=== PATIENT | female | born 1940 | race Caucasian/White ===

== ENCOUNTER 2020-06-26 12:24 | Outpatient (REF) | payer MEDICARE, SELFPAY ==
[2020-06-26 13:48] LABS: MANUAL DIFF FLAG NO
[2020-06-26 13:55] LABS: Basophils Percent Auto 0.6 % (0-2); Eosinophils Percent Auto 0.6 % (0-4); Hematocrit 39.8 % (37-47); Hemoglobin 12.8 g/dl (12.0-16.0); Imm Gran Abs Auto 0.03 X10*3/uL (0.00-0.03); Imm Gran Pct Auto 0.4 % (0.0-0.4); Lymphocytes Absolute Auto 2.3 X10*3/uL (1.2-4.9); Lymphocytes Percent Auto 32.6 % (20-40); Mean Corpuscular HGB Conc 32.2 g/dl (31.0-35.0); Mean Corpuscular Volume 96.4 fL (80-98); Mean Platelet Volume 9.3 fL (9.4-12.3); Monocytes Absolute Auto 0.8 X10*3/uL (0.1-1.2); Monocytes Percent Auto 10.7 % (2-11); Neutrophils Absolute Auto 3.9 X10*3/uL (2.0-8.3); Neutrophils Percent Auto 55.1 % (45-73); Platelet Count 239 X10*3/uL (160-400); Red Blood Count 4.13 X10*6/uL (4.20-5.50); Red Cell Distribution Width 12.6 % (11.0-16.0); White Blood Count 7.1 X10*3/uL (4.8-10.8)
[2020-06-26 14:31] LABS: Alanine Aminotransferase 10 U/L (0-31); Albumin Level 3.8 g/dL (3.5-5.0); Alkaline Phosphatase 38 U/L (39-117); Aspartate Amino Transferase 17 U/L (5-31); Bilirubin Total 0.7 mg/dL (0.0-1.0); Blood Urea Nitrogen 27 mg/dL (9-16); Calcium 9.7 mg/dL (8.4-10.2); Estimated Glomerular Filt Rate 42; Glucose Random 97 mg/dL (60-115); Total Protein 6.9 g/dL (6.5-8.0)
[2020-06-26 14:43] LABS: Anion Gap 10 (12-20); Carbon Dioxide 30 mmol/L (22-29); Chloride 105 mmol/L (96-108); Sodium 140 mmol/L (135-145)
[2020-06-26 14:54] LABS: Free T4 (Free Thyroxine) 1.04 ng/dL (0.71-1.85); Thyroid Stimulating Hormone 9.26 mIU/mL (0.32-4.0); Vitamin D 25-OH Total 35.3 ng/mL (>30)
== END 2020-06-26 12:25 | disposition home or self-care (01) ==
LOC: HO.10HDL 12:24
PROVIDERS: Visit Provider Internal Medicine
DX: E55.9 Vitamin D deficiency, unspecified (principal); E03.9 Hypothyroidism, unspecified; I12.9 Hypertensive chronic kidney disease with stage 1 through stage 4 chronic kidney disease, or unspecified chronic kidney disease; N18.9 Chronic kidney disease, unspecified
CPT/HCPCS: 36415; 80053; 82306; 84439; 84443; 85025

== ENCOUNTER 2020-08-01 11:01 | Outpatient (REF) | payer MEDICARE, SELFPAY ==
[2020-08-01 15:34] LABS: Free T4 (Free Thyroxine) 1.07 ng/dL (0.71-1.85); Thyroid Stimulating Hormone 5.25 uIU/mL (0.32-4.0)
== END 2020-08-01 11:02 | disposition home or self-care (01) ==
LOC: HO.HMGCLDS 11:01
PROVIDERS: PCP Internal Medicine; Visit Provider Internal Medicine
DX: E03.9 Hypothyroidism, unspecified (principal)
CPT/HCPCS: 84439; 84443

== ENCOUNTER 2021-04-02 07:49 | Outpatient (REF) | payer MEDICARE, SELFPAY ==
[2021-04-02 11:13] LABS: MANUAL DIFF FLAG NO
[2021-04-02 11:26] LABS: Basophils Percent Auto 0.6 % (0-2); Eosinophils Percent Auto 0.3 % (0-4); Hematocrit 41.2 % (37-47); Hemoglobin 13.3 g/dl (12.0-16.0); Imm Gran Abs Auto 0.02 X10*3/uL (0.00-0.03); Imm Gran Pct Auto 0.3 % (0.0-0.4); Lymphocytes Absolute Auto 2.1 X10*3/uL (1.2-4.9); Lymphocytes Percent Auto 34.1 % (20-40); Mean Corpuscular HGB Conc 32.3 g/dl (31.0-35.0); Mean Corpuscular Hemoglobin 31.1 pg (27.0-33.0); Mean Corpuscular Volume 96.3 fL (80-98); Mean Platelet Volume 9.5 fL (9.4-12.3); Monocytes Absolute Auto 0.7 X10*3/uL (0.1-1.2); Monocytes Percent Auto 10.4 % (2-11); Neutrophils Absolute Auto 3.4 X10*3/uL (2.0-8.3); Neutrophils Percent Auto 54.3 % (45-73); Platelet Count 254 X10*3/uL (160-400); Red Blood Count 4.28 X10*6/uL (4.20-5.50); Red Cell Distribution Width 12.9 % (11.0-16.0); White Blood Count 6.3 X10*3/uL (4.8-10.8)
[2021-04-02 12:14] LABS: Alanine Aminotransferase 8 U/L (0-31); Albumin Level 3.6 g/dL (3.5-5.0); Alkaline Phosphatase 38 U/L (39-117); Anion Gap 13 (12-20); Aspartate Amino Transferase 15 U/L (5-31); Bilirubin Total 0.6 mg/dL (0.0-1.0); Blood Urea Nitrogen 28 mg/dL (9-16); Calcium 9.3 mg/dL (8.4-10.2); Carbon Dioxide 25 mmol/L (22-29); Chloride 107 mmol/L (96-108); Cholesterol 160 mg/dL; Estimated Glomerular Filt Rate 50; Glucose Random 112 mg/dL (60-115); HDL Cholesterol 36 mg/dL; LDL Cholesterol Calculated 73 mg/dl; Potassium 4.6 mmol/L (3.3-5.1); Sodium 140 mmol/L (135-145); Thyroid Stimulating Hormone 6.26 uIU/mL (0.32-4.0); Total Protein 6.7 g/dL (6.5-8.0); Triglycerides 255 mg/dL; Vitamin D 25-OH Total 28.9 ng/mL (>30)
== END 2021-04-02 07:50 | disposition home or self-care (01) ==
LOC: HO.HMGCLDS 07:49
PROVIDERS: PCP Internal Medicine; Visit Provider Internal Medicine
DX: M85.80 Other specified disorders of bone density and structure, unspecified site (principal); E03.9 Hypothyroidism, unspecified; E78.00 Pure hypercholesterolemia, unspecified; I12.9 Hypertensive chronic kidney disease with stage 1 through stage 4 chronic kidney disease, or unspecified chronic kidney disease; N18.9 Chronic kidney disease, unspecified
CPT/HCPCS: 36415; 80053; 80061; 82306; 84439; 84443; 85025

== ENCOUNTER 2021-11-08 14:15 | Outpatient (REF) | payer MEDICARE, SELFPAY ==
[2021-11-08 16:37] LABS: Appearance Urine CLEAR; Color Urine YELLOW; Glucose Urine UA NEG (NEG); Leukocyte Esterase Urine TRACE (NEG); Nitrite Urine NEG (NEG); PH 5.5 (5.0-8.0); Specific Gravity - Urine 1.025 (1.005-1.025); UACC Culture Trigger YES; Urine Blood NEG (NEG); Urine Ketones NEG (NEG); Urine Protein NEG (NEG-TRACE)
[2021-11-08 16:50] LABS: RBC Urine 0 /HPF (0); Squamous Epithelial Cell Urine 2+ /LPF
== END 2021-11-08 14:16 | disposition home or self-care (01) ==
LOC: HO.HMGCLDS 14:15
PROVIDERS: Visit Provider Internal Medicine
DX: R30.0 Dysuria (principal)
CPT/HCPCS: 81001; 87086

== ENCOUNTER 2021-12-04 07:56 | Outpatient (REF) | payer MEDICARE, SELFPAY ==
[2021-12-04 12:20] LABS: Anion Gap 9 (12-20); Blood Urea Nitrogen 28 mg/dL (9-16); Carbon Dioxide 28 mmol/L (22-29); Chloride 106 mmol/L (96-108); Estimated Glomerular Filt Rate 44; Free T4 (Free Thyroxine) 1.06 ng/dL (0.71-1.85); Glucose Random 116 mg/dL (60-115); Potassium 4.8 mmol/L (3.3-5.1); Sodium 138 mmol/L (135-145)
== END 2021-12-04 07:57 | disposition home or self-care (01) ==
LOC: HO.HMGCLDS 07:56
PROVIDERS: Visit Provider Internal Medicine
DX: I12.9 Hypertensive chronic kidney disease with stage 1 through stage 4 chronic kidney disease, or unspecified chronic kidney disease (principal); N18.9 Chronic kidney disease, unspecified; E03.9 Hypothyroidism, unspecified
CPT/HCPCS: 36415; 80048; 84439; 84443

== ENCOUNTER 2021-12-24 17:23 | Outpatient (REF) | payer MEDICARE, SELFPAY | END 2021-12-24 17:24 | disposition home or self-care (01) | LOC: HO.LNP 17:23 | PROVIDERS: Visit Provider Internal Medicine | DX: L72.9 Follicular cyst of the skin and subcutaneous tissue, unspecified (principal) | CPT/HCPCS: 87071; 87205 ==

== ENCOUNTER 2022-01-23 13:09 | Outpatient (REF) | payer MEDICARE, SELFPAY ==
[2022-01-23 13:41] LABS: MANUAL DIFF FLAG NO
[2022-01-23 13:49] LABS: Basophils Percent Auto 0.4 % (0-2); Eosinophils Percent Auto 0.3 % (0-4); Hematocrit 39.4 % (37.0-47.0); Hemoglobin 12.7 g/dl (12.0-16.0); Imm Gran Abs Auto 0.02 X10*3/uL (0.00-0.03); Imm Gran Pct Auto 0.3 % (0.0-0.4); Lymphocytes Absolute Auto 2.6 X10*3/uL (1.2-4.9); Mean Corpuscular HGB Conc 32.2 g/dl (31.0-35.0); Mean Corpuscular Hemoglobin 30.6 pg (27.0-33.0); Mean Corpuscular Volume 94.9 fL (80.0-98.0); Mean Platelet Volume 9.2 fL (9.4-12.3); Monocytes Absolute Auto 0.7 X10*3/uL (0.1-1.2); Monocytes Percent Auto 9.5 % (2-11); Neutrophils Absolute Auto 3.6 x10*3/uL (2.0-8.3); Neutrophils Percent Auto 52.5 % (45-73); Platelet Count 230 X10*3/uL (160-400); Red Blood Count 4.15 X10*6/uL (4.20-5.50); Red Cell Distribution Width 12.7 % (11.0-16.0); White Blood Count 6.9 X10*3/uL (4.8-10.8)
[2022-01-23 14:05] LABS: Alanine Aminotransferase 7 U/L (0-31); Albumin Level 3.8 g/dL (3.5-5.0); Alkaline Phosphatase 47 U/L (39-117); Anion Gap 10 (12-20); Aspartate Amino Transferase 14 U/L (5-31); Bilirubin Total 0.6 mg/dL (0.0-1.0); Blood Urea Nitrogen 24 mg/dL (9-16); Carbon Dioxide 27 mmol/L (22-29); Chloride 106 mmol/L (96-108); Estimated Glomerular Filt Rate 48; Glucose Random 149 mg/dL (60-115); Potassium 4.3 mmol/L (3.3-5.1); Sodium 139 mmol/L (135-145); Total Protein 6.9 g/dL (6.5-8.0)
[2022-01-23 14:27] LABS: Free T4 (Free Thyroxine) 0.95 ng/dL (0.71-1.85); Thyroid Stimulating Hormone 6.33 uIU/mL (0.32-4.0); Vitamin D 25-OH Total 32.6 ng/mL (>30)
== END 2022-01-23 13:10 | disposition home or self-care (01) ==
LOC: HO.HMGCLDS 13:09
PROVIDERS: PCP Internal Medicine; Visit Provider Internal Medicine
DX: E03.9 Hypothyroidism, unspecified (principal); I12.9 Hypertensive chronic kidney disease with stage 1 through stage 4 chronic kidney disease, or unspecified chronic kidney disease; N18.9 Chronic kidney disease, unspecified; E55.9 Vitamin D deficiency, unspecified
CPT/HCPCS: 36415; 80053; 82306; 84439; 84443; 85025

== ENCOUNTER 2022-04-04 13:28 | Outpatient (REF) | payer MEDICARE, SELFPAY ==
[2022-04-04 17:02] LABS: Free T4 (Free Thyroxine) 1.05 ng/dL (0.71-1.85)
== END 2022-04-04 13:29 | disposition home or self-care (01) ==
LOC: HO.HMGCLDS 13:28
PROVIDERS: PCP Internal Medicine; Visit Provider Internal Medicine
DX: E03.9 Hypothyroidism, unspecified (principal)
CPT/HCPCS: 36415; 84439; 84443

== ENCOUNTER 2022-05-22 08:32 | Outpatient (REF) | payer MEDICARE, SELFPAY ==
[2022-05-22 11:36] LABS: MANUAL DIFF FLAG NO
[2022-05-22 11:45] LABS: Basophils Percent Auto 0.6 % (0-2); Eosinophils Percent Auto 0.2 % (0-4); Hematocrit 41.2 % (37.0-47.0); Hemoglobin 13.1 g/dl (12.0-16.0); Imm Gran Abs Auto 0.03 X10*3/uL (0.00-0.03); Imm Gran Pct Auto 0.5 % (0.0-0.4); Lymphocytes Percent Auto 31.8 % (20-40); Mean Corpuscular HGB Conc 31.8 g/dl (31.0-35.0); Mean Corpuscular Hemoglobin 30.2 pg (27.0-33.0); Mean Corpuscular Volume 94.9 fL (80.0-98.0); Mean Platelet Volume 9.7 fL (9.4-12.3); Monocytes Absolute Auto 0.7 X10*3/uL (0.1-1.2); Monocytes Percent Auto 10.7 % (2-11); Neutrophils Absolute Auto 3.5 x10*3/uL (2.0-8.3); Neutrophils Percent Auto 56.2 % (45-73); Platelet Count 239 X10*3/uL (160-400); Red Blood Count 4.34 X10*6/uL (4.20-5.50); Red Cell Distribution Width 12.4 % (11.0-16.0); White Blood Count 6.2 X10*3/uL (4.8-10.8)
[2022-05-22 12:04] LABS: Alanine Aminotransferase 9 U/L (0-31); Albumin Level 3.9 g/dL (3.5-5.0); Alkaline Phosphatase 40 U/L (39-117); Anion Gap 12 (12-20); Aspartate Amino Transferase 15 U/L (5-31); Bilirubin Total 0.7 mg/dL (0.0-1.0); Blood Urea Nitrogen 30 mg/dL (9-16); Calcium 9.5 mg/dL (8.4-10.2); Carbon Dioxide 27 mmol/L (22-29); Chloride 108 mmol/L (96-108); Cholesterol 164 mg/dL; Estimated Glomerular Filt Rate 52; Glucose Fasting 108 mg/dL (60-99); HDL Cholesterol 42 mg/dL; LDL Cholesterol Calculated 87 mg/dl; Potassium 4.8 mmol/L (3.3-5.1); Sodium 142 mmol/L (135-145); Total Protein 6.9 g/dL (6.5-8.0); Triglycerides 177 mg/dL
[2022-05-22 12:14] LABS: Free T4 (Free Thyroxine) 1.14 ng/dL (0.71-1.85); Thyroid Stimulating Hormone 3.38 uIU/mL (0.32-4.0)
== END 2022-05-22 08:33 | disposition home or self-care (01) ==
LOC: HO.HMGCLDS 08:32
PROVIDERS: PCP Internal Medicine; Visit Provider Internal Medicine
DX: I12.9 Hypertensive chronic kidney disease with stage 1 through stage 4 chronic kidney disease, or unspecified chronic kidney disease (principal); N18.9 Chronic kidney disease, unspecified; E78.00 Pure hypercholesterolemia, unspecified; E03.9 Hypothyroidism, unspecified; M19.90 Unspecified osteoarthritis, unspecified site
CPT/HCPCS: 36415; 80053; 80061; 84439; 84443; 85025

== ENCOUNTER 2022-12-01 08:36 | Outpatient (REF) | payer MEDICARE, SELFPAY ==
[2022-12-01 11:44] LABS: MANUAL DIFF FLAG NO
[2022-12-01 11:50] LABS: Basophils Percent Auto 0.6 % (0-2); Eosinophils Absolute Auto 0.1 X10*3/uL (0.0-0.4); Eosinophils Percent Auto 1.9 % (0-4); Hematocrit 40.7 % (37.0-47.0); Hemoglobin 12.8 g/dl (12.0-16.0); Imm Gran Abs Auto 0.03 X10*3/uL (0.00-0.03); Imm Gran Pct Auto 0.4 % (0.0-0.4); Lymphocytes Absolute Auto 2.2 X10*3/uL (1.2-4.9); Lymphocytes Percent Auto 30.4 % (20-40); Mean Corpuscular HGB Conc 31.4 g/dl (31.0-35.0); Mean Corpuscular Hemoglobin 30.4 pg (27.0-33.0); Mean Corpuscular Volume 96.7 fL (80.0-98.0); Mean Platelet Volume 9.8 fL (9.4-12.3); Monocytes Absolute Auto 0.6 X10*3/uL (0.1-1.2); Monocytes Percent Auto 8.9 % (2-11); Neutrophils Absolute Auto 4.2 x10*3/uL (2.0-8.3); Neutrophils Percent Auto 57.8 % (45-73); Platelet Count 261 X10*3/uL (160-400); Red Blood Count 4.21 X10*6/uL (4.20-5.50); Red Cell Distribution Width 12.7 % (11.0-16.0); White Blood Count 7.2 X10*3/uL (4.8-10.8)
[2022-12-01 12:06] LABS: Estimated Average Glucose 103 mg/dL; Hemoglobin A1c % 5.2 %
[2022-12-01 12:23] LABS: Alanine Aminotransferase 9 U/L (0-31); Albumin Level 3.8 g/dL (3.5-5.0); Alkaline Phosphatase 42 U/L (39-117); Anion Gap 14 (12-20); Aspartate Amino Transferase 13 U/L (5-31); Bilirubin Total 0.6 mg/dL (0.0-1.0); Blood Urea Nitrogen 39 mg/dL (9-16); Calcium 9.5 mg/dL (8.4-10.2); Carbon Dioxide 24 mmol/L (22-29); Chloride 110 mmol/L (96-108); Estimated Glomerular Filt Rate 47; Glucose Random 122 mg/dL (60-115); Sodium 144 mmol/L (135-145); Total Protein 6.8 g/dL (6.5-8.0)
[2022-12-01 12:47] LABS: Free T4 (Free Thyroxine) 1.02 ng/dL (0.71-1.85); Thyroid Stimulating Hormone 7.54 uIU/mL (0.32-4.0)
== END 2022-12-01 08:37 | disposition home or self-care (01) ==
LOC: HO.HMGCLDS 08:36
PROVIDERS: PCP Internal Medicine; Visit Provider Internal Medicine
DX: R73.03 Prediabetes (principal); K21.9 Gastro-esophageal reflux disease without esophagitis; E03.9 Hypothyroidism, unspecified; I12.9 Hypertensive chronic kidney disease with stage 1 through stage 4 chronic kidney disease, or unspecified chronic kidney disease; N18.9 Chronic kidney disease, unspecified
CPT/HCPCS: 36415; 80053; 83036; 84439; 84443; 85025

== ENCOUNTER 2023-03-04 08:56 | Outpatient (REF) | payer MEDICARE, SELFPAY ==
[2023-03-04 11:50] LABS: Anion Gap 9 (12-20); Blood Urea Nitrogen 35 mg/dL (9-16); Calcium 10.2 mg/dL (8.4-10.2); Carbon Dioxide 29 mmol/L (22-29); Chloride 108 mmol/L (96-108); Estimated Glomerular Filt Rate 50; Glucose Random 110 mg/dL (60-115); Potassium 4.6 mmol/L (3.3-5.1); Sodium 141 mmol/L (135-145)
[2023-03-04 12:16] LABS: Free T4 (Free Thyroxine) 1.15 ng/dL (0.71-1.85); Thyroid Stimulating Hormone 5.02 uIU/mL (0.32-4.0)
== END 2023-03-04 08:57 | disposition home or self-care (01) ==
LOC: HO.HMGCLDS 08:56
PROVIDERS: PCP Internal Medicine; Visit Provider Internal Medicine
DX: E03.9 Hypothyroidism, unspecified (principal); I12.9 Hypertensive chronic kidney disease with stage 1 through stage 4 chronic kidney disease, or unspecified chronic kidney disease; N18.9 Chronic kidney disease, unspecified
CPT/HCPCS: 36415; 80048; 84439; 84443

== ENCOUNTER 2023-08-21 09:00 | Outpatient (REF) | payer MEDICARE, SELFPAY ==
[2023-08-21 11:26] LABS: MANUAL DIFF FLAG NO
[2023-08-21 11:41] LABS: Basophils Percent Auto 0.7 % (0-2); Hematocrit 41.8 % (37.0-47.0); Hemoglobin 13.4 g/dl (12.0-16.0); Imm Gran Abs Auto 0.03 X10*3/uL (0.00-0.03); Imm Gran Pct Auto 0.5 % (0.0-0.4); Lymphocytes Absolute Auto 2.2 X10*3/uL (1.2-4.9); Lymphocytes Percent Auto 36.2 % (20-40); Mean Corpuscular HGB Conc 32.1 g/dl (31.0-35.0); Mean Corpuscular Hemoglobin 30.7 pg (27.0-33.0); Mean Corpuscular Volume 95.7 fL (80.0-98.0); Mean Platelet Volume 9.1 fL (9.4-12.3); Monocytes Absolute Auto 0.6 X10*3/uL (0.1-1.2); Monocytes Percent Auto 9.6 % (2-11); Neutrophils Absolute Auto 3.3 x10*3/uL (2.0-8.3); Platelet Count 280 X10*3/uL (160-400); Red Blood Count 4.37 X10*6/uL (4.20-5.50); Red Cell Distribution Width 12.9 % (11.0-16.0); White Blood Count 6.1 X10*3/uL (4.8-10.8)
[2023-08-21 11:42] LABS: Estimated Average Glucose 103 mg/dL; Hemoglobin A1c % 5.2 % (<6.0)
[2023-08-21 12:05] LABS: Alanine Aminotransferase 10 U/L (0-31); Alkaline Phosphatase 47 U/L (39-117); Anion Gap 12 (12-20); Aspartate Amino Transferase 17 U/L (5-31); Bilirubin Total 0.6 mg/dL (0.0-1.0); Blood Urea Nitrogen 31 mg/dL (9-16); Carbon Dioxide 27 mmol/L (22-29); Chloride 107 mmol/L (96-108); Cholesterol 207 mg/dL (<200); Estimated Glomerular Filt Rate 59; Glucose Fasting 114 mg/dL (60-99); HDL Cholesterol 48 mg/dL (>40); LDL Cholesterol Calculated 129 mg/dL (<100); Potassium 4.5 mmol/L (3.3-5.1); Sodium 141 mmol/L (135-145); Total Protein 7.7 g/dL (6.5-8.0); Triglycerides 150 mg/dL (<150)
== END 2023-08-21 09:01 | disposition home or self-care (01) ==
LOC: HO.HMGCLDS 09:00
PROVIDERS: PCP Internal Medicine; Visit Provider Internal Medicine
DX: E03.9 Hypothyroidism, unspecified (principal); K21.9 Gastro-esophageal reflux disease without esophagitis; I12.9 Hypertensive chronic kidney disease with stage 1 through stage 4 chronic kidney disease, or unspecified chronic kidney disease; N18.9 Chronic kidney disease, unspecified; R73.03 Prediabetes
CPT/HCPCS: 36415; 80053; 80061; 83036; 84439; 84443; 85025

== ENCOUNTER 2024-01-21 11:30 | Outpatient (REF) | payer MEDICARE, SELFPAY ==
[2024-01-21 13:13] LABS: Appearance Urine Clear; Color Urine Dark Yellow; Glucose Urine UA Negative (Negative); Leukocyte Esterase Urine Large (3+) (Negative); Nitrite Urine Negative (Negative); PH 5.5 (5.0-9.0); UMIC TRIGGER UACC YES; Urine Blood Negative (Negative); Urine Ketones Negative (Negative); Urine Protein Negative (Neg-Trace)
[2024-01-21 13:19] LABS: Bacteria Urine None Seen (None Seen); Hyaline Casts Urine 0-2 /LPF (0-2); RBC Urine 0-2 /HPF (0-2); UACC Culture Trigger YES; WBC Urine 21-50 /HPF (0-5)
== END 2024-01-21 11:31 | disposition home or self-care (01) ==
LOC: HO.HMGCLDS 11:30
PROVIDERS: PCP Internal Medicine; Visit Provider Internal Medicine
DX: R30.0 Dysuria (principal)
CPT/HCPCS: 81001; 81003; 87086

== ENCOUNTER 2024-04-23 15:38 | Emergency (ER) | payer MEDICARE, SELFPAY ==
[2024-04-23 15:45] VITALS: BP 144/91; PULSE 88; RESP 18; TEMP 36.5; O2SAT 95; BMI 20.9
--- NOTE | 2024-04-23 15:45 | ED.GENADULT ---
HPI - General Adult General Chief complaint: Weakness Stated complaint: ? uti, weakness dehydration Time Seen by Provider: 04/23/24 15:59 Source: patient Mode of arrival: ambulatory Limitations: no limitations History of Present Illness ED Provider: Dr. Letitia Crisostomo HPI narrative: Patient comes to the emergency room accompanied by her daughter. Patient has been complaining of weakness for several days, patient states that she is a bit confused. However, patient states that she has visitors in her house and she has been thrown off her routine and she does not do well with sudden changes. Patient states that otherwise she feels okay. A bit weak but still able to get up and do her activities of daily living. Patient states that she believes she has not been drinking as much fluids as she usually does but still does have some p.o. intake. Patient denies any flank pain or back pain, states that sometimes when she pees it hurts. Patient states that a few days ago she called her primary care physician and told her that she suspected that she has a UTI which she has had many times before. Patient states that her PCP did send antibiotics to her pharmacy but patient states that she was to be sent home with her visitors and never got to pick her antibiotics from the pharmacy Related Data Previous Rx's ?Medication ?Instructions ?Recorded cefuroxime axetil 250 mg tablet 250 mg PO BID #14 tabs 04/23/24 Allergies Allergy/AdvReac Type Severity Reaction Status Date / Time codeine [Codeine] Allergy Mild RASH/ITCH Verified 04/23/24 15:49 penicillin G [Penicillin G] Allergy Mild RASH/ITCH Verified 04/23/24 15:49 SWELLING THROAT CLOSES BANDAIDS Allergy Mild REDDNESS Uncoded 04/23/24 15:49 adhesive tape Allergy Unknown Rash Uncoded 04/23/24 15:49 codeine Allergy Unknown Rash Uncoded 04/23/24 15:49 ENVIROMENTAL Allergy Unknown UNKNOWN Uncoded 04/23/24 15:49 penicillin Allergy Unknown Rash Uncoded 04/23/24 15:49 Review of Systems Review of Systems: Constitutional : No Weight loss, No Fever, No Chills, No Night Sweats, complaining of fatigue and weakness ENT/Mouth : No Hearing loss, No Ear Pain, No Nasal Congestion, No Sinus Pain, No Hoarseness, No sore throat, No Rhinorrhea, No Swallowing Difficulty Eyes: No Eye Pain, No Swelling, No Redness, No Foreign Body, No Discharge, No Vision Changes Cardiovascular : No Chest Pain, No SOB, No Dyspnea on Exertion, No Orthopnea, No Edema, No Palpitations Respiratory : No Cough, No Sputum, No Wheezing, No Smoke Exposure, No Dyspnea Gastrointestinal : No Nausea, No Vomiting, No Diarrhea, No Constipation, No abdominal Pain, No Hematochezia, No Melena Genitourinary : Mild abdominal discomfort cramping intermittently. No Dysuria, No Urinary Frequency, No Hematuria, No Urinary Incontinence, No Urgency, No Flank Pain, No Urinary Flow Changes, No Hesitancy Musculoskeletal : No joint pain, No Myalgias, No Joint Swelling Skin : No Skin Lesions, No rash Neuro : No Weakness, No Numbness, No Paresthesias, No Loss of Consciousness, No Dizziness, No Headache Psych : No Anxiety/Panic, No Depression, No SI/HI/AH/VH, No Social Issues, Heme/Lymph: No Bruising, No Bleeding,No Lymphadenopathy Endocrine : No Polyuria, No Polydipsia, No Temperature Intolerance [facility] Past Medical History Medical History Recurrent UTI Hypertension Social History Social History Smoked in Last 30 Days: No Use of substances other than those prescribed or required for medical reasons: No Advance Directives: Yes Advance Directives on File: Yes Advance Directives Date on File: 06/26/20 Do you have a plan to hurt others: No Plan Physical Exam ED Vital Signs: Vital Signs - 24 hr 04/23/24 15:45 04/23/24 16:05 04/23/24 18:36 Temperature 97.7 F 98.7 F Pulse Rate 88 80 69 Respiratory Rate 18 14 18 Blood Pressure 144/91 H 132/93 H 143/50 H Pulse Oximetry 95 96 96 Oxygen Delivery Method Room Air Room Air Room Air 04/23/24 20:59 Temperature 98.3 F Pulse Rate 71 Respiratory Rate 22 H Blood Pressure 147/81 H Pulse Oximetry 95 Oxygen Delivery Method Room Air BMI result Body Mass Index 20.9 Const Other: Appearance: Alert. Oriented X3. No acute distress. Well-appearing Eyes: Pupils equal, round and reactive to light. ENT: Pharynx normal. Neck: Normal inspection. Neck supple. No lymph nodes noted. No crepitus CVS: Normal heart rate and rhythm. Pulses normal. Normal S1 and S2 Respiratory: No respiratory distress. Breath sounds normal. No Wheezing. No rales Abdomen: Soft and nontender. No rigidity. No distention. Skin: Skin warm and dry. Normal skin color. Normal skin turgor. Extremities: No lower extremity edema. No Lacerations. No Rash Neuro: Oriented X 3. No motor deficit. No sensory deficit. Moving all extremities. No slurred speech. CN 2 through 12 grossly intact Psych: calm, cooperative, normal affect Course Course Course Narrative: RME performed by Beth Varela PA-C. Patient is an 83 year old assigned female at presenting to the emergency department with weakness. Patient states she is feeling much more weak and having issues with sharpness . Detailed physical exam and review of systems are deferred to the wind project manager. EKG, labs, imaging, and swabs ordered. Patient placed back in the waiting room pending room availability and results. Medications Administered Generic Name Dose Route Start Last Admin Trade Name Freq PRN Reason Stop Dose Admin Sodium Chloride 1,000 mls @ 999 mls/hr 04/23/24 21:46 04/23/24 22:06 Ns IVCONT 04/23/24 22:46 999 mls/hr .Q1H1M ONE Administration Discontinued Medications Generic Name Dose Route Start Last Admin Trade Name Freq PRN Reason Stop Dose Admin Cefuroxime Axetil 250 mg 04/23/24 18:59 04/23/24 19:45 Cefuroxime Axetil 250 Mg Tablet PO 04/23/24 19:00 250 mg ONCE ONE Administration Medical Decision Making Medical Decision Making [facility] Narrative: -my interpretation of labs: Patient's sodium is a bit low, patient was given IV fluids. White blood cell count 14.5. Patient tested positive for UTI. -patient was given p.o. cefuroxime -patient was ambulated in the emergency room with a walker which he uses a baseline, patient states that she feels very well, strong and would like to be discharged home. Patient's daughters are here and will be taking her home. Differential Diagnosis Differential Diagnoses: The differential diagnosis associated with the presentation includes (UTI, COVID, deconditioning) Admission/Observation Consideration of admission/observation: Escalation of care including admission/observation considered (Observation was considered.) Lab Data [facility] Lab Attestation statement: I reviewed the patient's lab results. 04/23/24 16:16 04/23/24 20:57 Labs: Lab Results 04/23/24 04/23/24 04/23/24 Range/Units 16:16 18:35 20:57 WBC 14.5 H (4.8-10.8) X10*3/uL RBC 4.30 (4.20-5.50) X10*6/uL Hgb 13.4 (12.0-16.0) g/dl Hct 38.0 (37.0-47.0) % MCV 88.4 (80.0-98.0) fL MCH 31.2 (27.0-33.0) pg MCHC 35.3 H (31.0-35.0) g/dl RDW 12.1 (11.0-16.0) % Plt Count 260 (160-400) X10*3/uL MPV 8.3 L (9.4-12.3) fL Immature Gran % (Auto) 0.6 H (0.0-0.4) % Neut % (Auto) 64.3 (45-73) % Lymph % (Auto) 22.3 (20-40) % [place] % (Auto) 12.4 H (2-11) % Eos % (Auto) 0.1 (0-4) % Baso % (Auto) 0.3 (0-2) % Lymph # (Auto) 3.2 (1.2-4.9) X10*3/uL [place] # (Auto) 1.8 H (0.1-1.2) X10*3/uL Eos # (Auto) 0.0 (0.0-0.4) X10*3/uL Baso # (Auto) 0.0 (0.0-0.2) X10*3/uL Abs Immat Gran (auto) 0.09 H (0.00-0.03) X10*3/uL Absolute Neuts (auto) 9.4 H (2.0-8.3) x10*3/uL Absolute Nucleated RBC 0.000 (0.0-0.012) X10*3/uL Nucleated RBC % (auto) 0.0 (0.0-0.2) /100WBC Smear Tech's Comments VERIFIED Sodium 131 L 131 L (135-145) mmol/L Potassium 4.4 4.1 (3.3-5.1) mmol/L Chloride 98 97 (96-108) mmol/L Carbon Dioxide 21 L 26 (22-29) mmol/L Anion Gap 16 12 (12-20) BUN 39 H 36 H (9-16) mg/dL Creatinine 1.17 0.90 (0.5-1.4) mg/dL Estim Creat Clear Calc 39.4 51.2 Estimated GFR 44 > 60 Random Glucose 135 H 112 (60-115) mg/dL Calcium 10.1 9.5 (8.4-10.2) mg/dL Magnesium 1.6 (1.6-2.6) mg/dL Total Bilirubin 1.0 (0.0-1.0) mg/dL AST 21 (5-31) U/L ALT 11 (0-31) U/L Alkaline Phosphatase 42 (39-117) U/L Total Creatine Kinase 35 (26-140) U/L Troponin I High Sens 20.7 H 17.0 (<3.5-17.0) ng/L Total Protein 7.8 (6.5-8.0) g/dL Albumin 4.1 (3.5-5.0) g/dL Urine Color Yellow Urine Appearance Cloudy Urine pH 5.5 (5.0-9.0) Ur Specific [place] 1.020 (1.005-1.025) Urine Protein Trace (Neg-Trace) mg/dL Urine Glucose (UA) Negative (Negative) mg/dL Urine Ketones Negative (Negative) mg/dL Urine Blood Trace H (Negative) Urine Nitrite Negative (Negative) Ur Leukocyte Esterase Large (3+) H (Negative) Urine RBC 3-5 H (0-2) /HPF Urine WBC >50 H (0-5) /HPF Ur Squamous Epith Cells 0-2 (0-2) /HPF Urine Bacteria 1+ (None Seen) Hyaline Casts 3-5 (0-2) /LPF Influenza Type A (PCR) NEGATIVE (Negative) Influenza Type B (PCR) NEGATIVE (Negative) RSV RNA Qual (PCR) NEGATIVE (Negative) SARS-CoV-2 RNA (RT-PCR) NEGATIVE (Negative) Independent Interpretation I performed an independent interpretation of an: EKG (My interpretation of EKG: Normal sinus rhythm, heart rate 79, no ST segment depression or elevation, no T-wave inversion QTC 451) Independent Historian Clinical information obtained from an independent historian. History obtained from or confirmed by: Other (Patient's daughters) Critical Care Time Critical Care Time Critical Care Time: Yes Total Critical Care Time: 35 Attestation: I have personally provided critical care time. Time includes review of lab data, radiology results, discussion with consultants, and monitoring for potential decompensation. Intervention performed as documented. Discharge Plan Discharge Clinical Impression: UTI (urinary tract infection), Acute hyponatremia Patient Disposition: Home, Self-Care Instructions: Hyponatremia (ED), Urinary Tract Infection in Older Adults (ED) Additional Instructions: Please follow-up with your primary care physician tomorrow. If you have any worsening or new symptoms, please return to the emergency room or call 911 Prescriptions: New cefuroxime axetil 250 mg tablet 250 mg PO BID Qty: 14 0RF Print Language: Lao
--- NOTE | 2024-04-23 15:48 | ECG_ITS ---
Test Reason : chest pain Blood Pressure : / mmHG Vent. Rate : 079 BPM Atrial Rate : 079 BPM P-R Int : 142 ms QRS Dur : 084 ms QT Int : 394 ms P-R-T Axes : 100 -21 026 degrees QTc Int : 451 ms Normal sinus rhythm Minimal voltage criteria for LVH, may be normal variant ( R in aVL ) Borderline ECG When compared with ECG of 27-APR-2011 09:13, Nonspecific T wave abnormality now evident in Lateral leads Referred By: Beth Varela Electronically Signed By:Gigi Miranda
--- NOTE | 2024-04-23 16:04 | PC.NURSE ---
Pt. is on monitoring tech at this time.
[2024-04-23 16:05] VITALS: BP 132/93; PULSE 80; RESP 14; TEMP 37.1; O2SAT 96
--- NOTE | 2024-04-23 16:16 | PC.NURSE ---
Labs and Covid swab sent as ordered.
[2024-04-23 16:23] LABS: Basophils Percent Auto 0.3 % (0-2); Eosinophils Percent Auto 0.1 % (0-4); Hemoglobin 13.4 g/dl (12.0-16.0); Imm Gran Abs Auto 0.09 X10*3/uL (0.00-0.03); Imm Gran Pct Auto 0.6 % (0.0-0.4); Lymphocytes Absolute Auto 3.2 X10*3/uL (1.2-4.9); Lymphocytes Percent Auto 22.3 % (20-40); MANUAL DIFF FLAG SCAN; Mean Corpuscular HGB Conc 35.3 g/dl (31.0-35.0); Mean Corpuscular Hemoglobin 31.2 pg (27.0-33.0); Mean Corpuscular Volume 88.4 fL (80.0-98.0); Mean Platelet Volume 8.3 fL (9.4-12.3); Monocytes Absolute Auto 1.8 X10*3/uL (0.1-1.2); Monocytes Percent Auto 12.4 % (2-11); Neutrophils Absolute Auto 9.4 x10*3/uL (2.0-8.3); Neutrophils Percent Auto 64.3 % (45-73); Platelet Count 260 X10*3/uL (160-400); Red Cell Distribution Width 12.1 % (11.0-16.0); SCAN SMEAR FLAG 1; White Blood Count 14.5 X10*3/uL (4.8-10.8)
[2024-04-23 16:38] LABS: Alanine Aminotransferase 11 U/L (0-31); Albumin Level 4.1 g/dL (3.5-5.0); Alkaline Phosphatase 42 U/L (39-117); Anion Gap 16 (12-20); Aspartate Amino Transferase 21 U/L (5-31); Blood Urea Nitrogen 39 mg/dL (9-16); Calcium 10.1 mg/dL (8.4-10.2); Carbon Dioxide 21 mmol/L (22-29); Chloride 98 mmol/L (96-108); Creatinine Clr Calc Pharmacy 39.4; Estimated Glomerular Filt Rate 44; Glucose Random 135 mg/dL (60-115); Magnesium 1.6 mg/dL (1.6-2.6); Potassium 4.4 mmol/L (3.3-5.1); Sodium 131 mmol/L (135-145); Total Protein 7.8 g/dL (6.5-8.0)
[2024-04-23 16:42] LABS: Troponin-I High Sensitivity 20.7 ng/L (<3.5-17.0)
[2024-04-23 16:59] LABS: Influenza A PCR NEGATIVE (Negative); Influenza B PCR NEGATIVE (Negative); Resp Syncy Virus RNA Qual PCR NEGATIVE (Negative); SARS COV2 PCR INHOUSE NEGATIVE (Negative)
[2024-04-23 18:12] LABS: SLIDE REVIEW VERIFIED
--- NOTE | 2024-04-23 18:35 | PC.NURSE ---
Urine sent as ordered.
[2024-04-23 18:36] VITALS: BP 143/50; PULSE 69; RESP 18; O2SAT 96
[2024-04-23 18:47] LABS: Appearance Urine Cloudy; Color Urine Yellow; Glucose Urine UA Negative (Negative); Leukocyte Esterase Urine Large (3+) (Negative); Nitrite Urine Negative (Negative); PH 5.5 (5.0-9.0); UMIC TRIGGER UACC YES; Urine Blood Trace (Negative); Urine Ketones Negative (Negative); Urine Protein Trace mg/dL (Neg-Trace)
[2024-04-23 18:52] LABS: Bacteria Urine 1+ (None Seen); Squamous Epithelial Cell Urine 0-2 /HPF (0-2); UACC Culture Trigger YES; WBC Urine >50 /HPF (0-5)
[2024-04-23] MEDS: cefuroxime axetiL 250 MG TABLET PO (19:45)
[2024-04-23 20:59] VITALS: BP 147/81; PULSE 71; RESP 22; TEMP 36.8; O2SAT 95
[2024-04-23 21:15] LABS: Anion Gap 12 (12-20); Blood Urea Nitrogen 36 mg/dL (9-16); Calcium 9.5 mg/dL (8.4-10.2); Carbon Dioxide 26 mmol/L (22-29); Chloride 97 mmol/L (96-108); Creatinine Clr Calc Pharmacy 51.2; Estimated Glomerular Filt Rate > 60; Glucose Random 112 mg/dL (60-115); Potassium 4.1 mmol/L (3.3-5.1); Sodium 131 mmol/L (135-145)
[2024-04-23] MEDS: 0.9 % Sodium Chloride 1,000 ML 999 ML IVCONT (22:06)
[2024-04-23 23:07] VITALS: BP 132/70; PULSE 69; RESP 16; TEMP 36.4; O2SAT 98
[2024-04-23 23:22] VITALS: BP 132/70; PULSE 69; RESP 16; TEMP 36.4; O2SAT 98
== END 2024-04-23 23:22 | disposition home or self-care (01) ==
PROVIDERS: Physician Assistant Medical; Emergency Provider Emergency Medicine; PCP Internal Medicine
DX: N39.0 Urinary tract infection, site not specified (principal); E87.1 Hypo-osmolality and hyponatremia; Z03.818 Encounter for observation for suspected exposure to other biological agents ruled out; R53.1 Weakness; Z87.440 Personal history of urinary (tract) infections
CPT/HCPCS: 0241U; 36415; 80048; 80053; 81001; 82550; 83735; 84484; 85025; 87086; 93005; 96360; 99284; 99285

== ENCOUNTER → 2024-04-23 15:48 | Outpatient (BNV) | payer MEDICARE, SELFPAY | PROVIDERS: Emergency Provider Emergency Medicine; PCP Internal Medicine; Visit Provider Internal Medicine Cardiovascular Disease | DX: R07.9 Chest pain, unspecified (principal) | CPT/HCPCS: 93010 ==

== ENCOUNTER 2024-04-29 11:51 | Inpatient (IN) | payer MEDICARE, SELFPAY ==
--- NOTE | ~2024-04-29 | CT_ITS ---
EXAMINATION: CT HEAD WITHOUT CONTRAST CLINICAL INFORMATION: Change in mental status. COMPARISON: None available. TECHNIQUE: Contiguous axial imaging was performed from the skull base to vertex without intravenous administration of contrast. This CT examination was performed using dose optimization techniques as appropriate, variously including the following: *Automated exposure control *Adjustment of mA and/or kV according to patient size (this includes techniques or standardized protocols for targeted exams where dose is matched to indication/reason for exam; i.e. extremities or head) *Use of iterative reconstruction technique DLP: 648 mGy-cm FINDINGS: There is no acute intracranial hemorrhage. There is no evidence of acute/subacute cerebral or cerebellar infarction. There is mild microvascular ischemic change. There is a chronic left basal ganglia lacunar infarction versus enlarged perivascular space. There is no midline shift or mass effect. There is no extra-axial fluid collection. The ventricles are normal in size. The cavernous internal carotid arteries are densely calcified. The ocular lenses are surgically absent. The mastoid air cells are well aerated. The visualized paranasal sinuses are clear. There is a large leftward projecting bony nasal septal spur. CT/CT head/brain wo IV con IMPRESSION: No acute intracranial pathology. Mild microvascular ischemic change.
--- NOTE | ~2024-04-29 | CT_ITS ---
EXAMINATION: CT ABDOMEN AND PELVIS WITH CONTRAST CLINICAL INFORMATION: Abdominal pain. UTI. COMPARISON: Ultrasound abdomen October 09, 2008 TECHNIQUE: Multidetector volumetric images were obtained from the superior aspect of the liver through the pubic symphysis following administration 85 mL of Omnipaque 350 intravenous contrast. Sagittal and coronal reformatted images were obtained on the technologist's workstation. Oral contrast: Yes This CT examination was performed using dose optimization techniques as appropriate, variously including the following: *Automated exposure control *Adjustment of mA and/or kV according to patient size (this includes techniques or standardized protocols for targeted exams where dose is matched to indication/reason for exam; i.e. extremities or head) *Use of iterative reconstruction technique DLP: 777 mGy-cm FINDINGS: LUNG BASES: The visualized lung bases are unremarkable. LIVER, GALLBLADDER, AND BILIARY TREE: Status post cholecystectomy. Mild chronic intrahepatic and extrahepatic bile duct dilatation. No suspicious liver lesion. PANCREAS: Unremarkable. SPLEEN: Unremarkable. ADRENAL GLANDS: Unremarkable. KIDNEYS AND URETERS: The kidneys are normal in size, shape, and attenuation. No hydronephrosis, hydroureter, or calculi seen. No perinephric stranding. Small cortical cyst lower pole right kidney. No follow-up imaging is recommended for simple renal cyst. BLADDER: Unremarkable. Abdominal wall/GASTROINTESTINAL TRACT: There is a ventral wall hernia at the umbilicus. Defect in the wall measuring 3.7 cm superior-inferior sagittal images 7 series 8. There is fat and nonobstructed transverse colon in the hernia sac. Hernia sac measures approximately 14 cm transverse by 11 cm superior-inferior by 5 cm AP. Numerous diverticula of the sigmoid colon. No evidence of diverticulitis. No acute change of the bowel. No bowel obstruction. No bowel wall thickening or edema. Moderate to large sized hiatal hernia. Small bowel loops are unremarkable. The appendix is not visualized. No inflammation the mesentery. LYMPH NODES: Normal. VASCULAR: Vascular calcifications throughout the abdomen or pelvis. No aneurysm of aorta. PELVIC VISCERA: Unremarkable. OSSEOUS STRUCTURES: Advanced multilevel degenerative spondylosis spine. Dextroscoliosis of the lumbar spine. CT/CT abdomen pelvis w IV con IMPRESSION: 1. No acute abnormality CT scan abdomen pelvis. 2. Ventral wall hernia containing fat and nonobstructed transverse colon. 3. Diverticulosis of colon. No acute abnormality of the bowel. 4. Status post cholecystectomy. 5. Moderate to large sized hiatal hernia. Fleischner guidelines were followed.
--- NOTE | ~2024-04-29 | FL_ITS ---
EXAMINATION: XR FLUOROSCOPY UPPER GI WITH AIR CLINICAL INFORMATION: Dysphagia, reflux COMPARISON: CT scan April 2024 TECHNIQUE: Fluoroscopic air contrast upper GI examination was performed utilizing standard techniques with thin and thick barium and effervescent granules. Numerous spot images were obtained. FINDINGS: There is severe kyphosis of the thoracic spine. Lateral cine images of the oropharynx and hypopharynx demonstrate normal swallow mechanism with normal epiglottic inversion and soft palate elevation. A small amount of laryngeal penetration is seen with thick barium. No tracheal penetration, glottic or subglottic aspiration identified. No nasopharyngeal reflux present. Hypopharyngeal structures appear normal without evidence of mass or diverticulum. Moderate cricopharyngeal achalasia is present. A small anterior cervical web is noted at the level of C5-C6. Dual and single contrast images of the esophagus demonstrate a dilated esophagus with a corkscrew appearance. The esophageal mucosa has a granular appearance which suggests esophagitis. Esophageal peristalsis is severely disorganized. The patient swallowed the barium tablet without any difficulty. There is mild narrowing of the GE junction. There is stasis of the tablet at the GE junction. A large paraesophageal hernia is present, with the majority the fundus located within the thoracic cavity. No significant gastroesophageal reflux was seen during the course of the examination and on reflux views. Dual contrast and single contrast images of the stomach demonstrated a normal contour. The majority the fundus of the stomach is located in the intrathoracic cavity. The gastric rugal folds have a thickened appearance which suggests gastritis. There are a few tiny focal areas of pooling in the fundus of the stomach that likely represents small superficial aphthous ulcers. No masses are seen. Contrast freely passed into the gastric antrum and duodenal bulb without delay. Single and air-contrast images of the duodenal bulb demonstrate no abnormality. The duodenal sweep has a normal appearance, course, and mucosal fold appearance. There is a large diverticulum arising from the distal second portion the duodenum. The imaged proximal jejunum has a normal fold pattern and caliber. FLUOROSCOPY TIME: 6 minutes 3 seconds Number of Spot Images: 10 Number of Cine: 13 DOSE AREA PRODUCT: 3196 uGy-m2 (microgray-meter squared) FL/FL barium swallow with air IMPRESSION: 1. Small amount of laryngeal penetration is seen with thick barium. 2. Moderate cricopharyngeal achalasia 3. A very small anterior cervical web is present at the level C5-C6 4. Dilated esophagus with corkscrew appearance and severely disorganized esophageal peristalsis consistent with severe esophageal dysmotility. 5. Mild narrowing of the GE junction which may represents achalasia or a benign stricture. No high-grade narrowing. 6. Granular appearance of the esophageal mucosa which suggests erosive esophagitis. 5. Large type III paraesophageal hernia is present, with the majority the fundus the stomach located within the thoracic cavity. Small fundal gastric diverticulum noted. 6. Thickened gastric rugal folds. In addition, there are multiple tiny foci of contrast pooling in the fundus of the stomach. These findings are suggestive of erosive gastritis. 7. Large diverticulum arising from the second portion the duodenum. 8. Severe kyphosis of the thoracic spine. Given the above findings, recommend correlation with EGD. This procedure was performed by Placido Rogel PA-C, and supervised by Dr. Harry
[2024-04-29 12:15] VITALS: BP 141/66; PULSE 75; RESP 18; TEMP 36.2; O2SAT 97; BMI 23.4
--- NOTE | 2024-04-29 12:20 | ED_ITS ---
HPI - General Adult General Chief complaint: Abdominal Pain Stated complaint: uti, confusion Time Seen by Provider: 04/29/24 13:28 Source: patient and family Mode of arrival: ambulatory Limitations: other (intermittently confused) History of Present Illness ED Provider: Roni GUY HPI narrative: 83 year old female with a pmh of HTN presenting with family for concerns of increasing abdominal pain, weakness and AMS for the past 1 week following ED visit for untreated UTI. Pt was treated on 04/23/2024 in the ED for UTI and was given IVF and antibiotics during discharge. Pt states since this time she has has acute onset abdominal pain in the epigastric region, non-radiating. Family also stated that pt has been experiencing dark stools, no BRPR seen by family. She has been experiencing anorexia as well due to the pain. She denies any vomiting, chest pain, sob, fevers. Related Data Previous Rx's ?Medication ?Instructions ?Recorded cefuroxime axetil 250 mg tablet 250 mg PO BID #14 tabs 04/23/24 Allergies Allergy/AdvReac Type Severity Reaction Status Date / Time codeine [Codeine] Allergy Mild RASH/ITCH Verified 04/29/24 12:23 penicillin G [Penicillin G] Allergy Mild RASH/ITCH Verified 04/29/24 12:23 SWELLING THROAT CLOSES BANDAIDS Allergy Mild REDDNESS Uncoded 04/23/24 15:49 adhesive tape Allergy Unknown Rash Uncoded 04/23/24 15:49 codeine Allergy Unknown Rash Uncoded 04/23/24 15:49 ENVIROMENTAL Allergy Unknown UNKNOWN Uncoded 04/23/24 15:49 penicillin Allergy Unknown Rash Uncoded 04/23/24 15:49 Review of Systems 2 Review of Systems: Yes all other systems are reviewed and are negative [facility] Past Medical History Attestation statement: The following information was validated with the patient. Medical History Recurrent UTI Hypertension Social History Social History Smoked in Last 30 Days: No Use of substances other than those prescribed or required for medical reasons: No Advance Directives: No Advance Directives Information Provided: Yes Advance Directives Date on File: 06/26/20 Do you have a plan to hurt others: No Plan Physical Exam ED Vital Signs: Vital Signs - 24 hr 04/29/24 12:15 04/29/24 15:28 Temperature 97.1 F 97.8 F Pulse Rate 75 80 Respiratory Rate 18 20 Blood Pressure 141/66 H 134/64 Pulse Oximetry 97 98 Oxygen Delivery Method Room Air Room Air BMI result Body Mass Index 23.4 VSS Appearance: Alert.? Oriented X3.? No acute distress.? Head: Normocephalic, atraumatic, no step-offs or deformities Eyes: Pupils equal, round and reactive to light.? Neck: Normal inspection.? Neck supple.? CVS: Normal heart rate and rhythm.? Pulses normal.? Respiratory: No respiratory distress.? Breath sounds normal.? Abdomen: Soft, tender to palpation in the epigastric area, no signs of swelling, erythema, lesions in the area. Skin: Skin warm and dry.? Normal skin color.? Normal skin turgor.? Extremities: No lower extremity edema.? No calf ttp. 5/5 strength to bilateral upper and lower extremities Back: No midline tenderness, no C-spine tenderness, full range of motion, no CVA tenderness bilaterally Neuro: Oriented X 3.? No motor deficit.? No sensory deficit. CN 2-12 intact Course Course Course Narrative: This is an RME: Additional HPI, ROS, PE not included below will be deferred to primary provider. RME assessment and note performed by: Carla Francisco PA-C This is a [id number], who presents emergency department accompanied by her daughter, with complaints of abdominal pain. She was seen here on April 23 after being diagnosed with a UTI. States that since her visit her abdominal pain has been getting worse, preventing her from eating and drinking. She reports that this pain is in her epigastrium and upper abdomen. He has been staying with her over the last few days. Plan: Labs, UA, EKG Reevaluation(s) Reevaluation #1: CBC with leukocytosis, no left shift. Chemistry with sodium 132 fluids given, potassium 5.2 no changes on EKG Lokelma given. Troponin negative, EKG nonischemic. Lipase within normal limits. OBS negative. Urine with leukocyte esterases no bacteria however patient is still symptomatic will treat with Levaquin. CT abdomen and pelvis pending. Patient was injected with IV contrast prior to Radiology seeing the order for head CT therefore head CT will be done tomorrow. Flu COVID, RSV pending. Plan is hospital admission. Hospitalist aware that there still imaging pending. Time: 15:47 Medications Administered Discontinued Medications Generic Name Dose Route Start Last Admin Trade Name Arun PRN Reason Stop Dose Admin Sodium Chloride 1,000 mls @ 999 mls/hr 04/29/24 14:30 04/29/24 14:50 Ns IV 04/29/24 15:30 999 mls/hr .Q1H1M CARLA Administration Levofloxacin 500 mg in 100 mls @ 100 mls/hr 04/29/24 14:27 04/29/24 14:51 Levaquin IV 04/29/24 15:26 100 mls/hr ONCE ONE Administration Iohexol 100 ml 04/29/24 14:44 04/29/24 14:44 Iohexol 350 Mg/Ml 100 Ml Infus..Btl IV 04/29/24 14:45 85 ml ONCE ONE Administration Sodium Zirconium Cyclosilicate 10 gm 04/29/24 13:29 04/29/24 14:26 Sodium Zirconium Cyclosilicate 10 Gm Powd.Pack PO 04/29/24 13:30 10 gm ONCE ONE Administration Medical Decision Making Medical Decision Making [facility] Narrative: 83 year old female presenting with complaints of increasing epigastric pain x 1 week following ED visit for acute untreated UTI Physical examination revealed tenderness to palpation along epigastrium, no signs of erythema, abrasion, or obvious masses felt. Hx and pe concerning for UTI vs electrolyte abnormalities. Unlikely pyelonephritis, acute abdomen, pancreatitis. I do not expect acute lower GI bleed, pt admits to taking pepto bismol, will sent OBS for confirmation. I do not suspect stroke, posterior stroke, intracranial hemorrhage, encephalitis, meningitis, however will rule out. Confusion that seems to be gradually worsening is also concerning for early dementia. Pending labs, urine, imaging Differential Diagnosis Differential Diagnoses: The differential diagnosis associated with the presentation includes Hx and pe concerning for UTI vs electrolyte abnormalities. Unlikely pyelonephritis, acute abdomen, pancreatitis. I do not expect acute lower GI bleed, pt admits to taking pepto bismol, will sent OBS for confirmation. I do not suspect stroke, posterior stroke, intracranial hemorrhage, encephalitis, meningitis, however will rule out. Confusion that seems to be gradually worsening is also concerning for early dementia. Admission/Observation Consideration of admission/observation: Escalation of care including admission/observation considered Possible Consult Healthcare Provider Management of the patient was discussed with: Hospitalist Lab Data MDM Lab Attestation statement: I reviewed the patient's lab results. 04/29/24 12:42 04/29/24 12:42 Labs: Lab Results 04/29/24 04/29/24 04/29/24 Range/Units 12:42 14:17 14:22 WBC 15.4 H (4.8-10.8) X10*3/uL RBC 4.30 (4.20-5.50) X10*6/uL Hgb 13.3 (12.0-16.0) g/dl Hct 39.4 (37.0-47.0) % MCV 91.6 (80.0-98.0) fL MCH 30.9 (27.0-33.0) pg MCHC 33.8 (31.0-35.0) g/dl RDW 12.2 (11.0-16.0) % Plt Count 306 (160-400) X10*3/uL MPV 8.4 L (9.4-12.3) fL Immature Gran % (Auto) 0.7 H (0.0-0.4) % Neut % (Auto) 70.5 (45-73) % Lymph % (Auto) 18.5 L (20-40) % [place] % (Auto) 10.0 (2-11) % Eos % (Auto) 0.0 (0-4) % Baso % (Auto) 0.3 (0-2) % Lymph # (Auto) 2.9 (1.2-4.9) X10*3/uL [place] # (Auto) 1.5 H (0.1-1.2) X10*3/uL Eos # (Auto) 0.0 (0.0-0.4) X10*3/uL Baso # (Auto) 0.1 (0.0-0.2) X10*3/uL Abs Immat Gran (auto) 0.11 H (0.00-0.03) X10*3/uL Absolute Neuts (auto) 10.9 H (2.0-8.3) x10*3/uL Absolute Nucleated RBC 0.000 (0.0-0.012) X10*3/uL Nucleated RBC % (auto) 0.0 (0.0-0.2) /100WBC Smear Tech's Comments VERIFIED Sodium 132 L (135-145) mmol/L Potassium 5.2 H D (3.3-5.1) mmol/L Chloride 96 (96-108) mmol/L Carbon Dioxide 28 (22-29) mmol/L Anion Gap 13 (12-20) BUN 30 H (9-16) mg/dL Creatinine 1.20 (0.5-1.4) mg/dL Estim Creat Clear Calc 34.3 Estimated GFR 43 Random Glucose 132 H (60-115) mg/dL Calcium 10.8 H D (8.4-10.2) mg/dL Magnesium 1.8 (1.6-2.6) mg/dL Total Bilirubin 0.6 (0.0-1.0) mg/dL Direct Bilirubin 0.1 (0.0-0.5) mg/dL AST 22 (5-31) U/L ALT 11 (0-31) U/L Alkaline Phosphatase 44 (39-117) U/L Troponin I High Sens 4.6 D (<3.5-17.0) ng/L Total Protein 8.0 (6.5-8.0) g/dL Albumin 4.2 (3.5-5.0) g/dL Lipase 67 (8-78) U/L Urine Color Dark Yellow Urine Appearance Cloudy Urine pH 6.0 (5.0-9.0) Ur Specific [place] 1.020 (1.005-1.025) Urine Protein 30 (1+) H (Neg-Trace) mg/dL Urine Glucose (UA) Negative (Negative) mg/dL Urine Ketones Trace (Negative) mg/dL Urine Blood Negative (Negative) Urine Nitrite Negative (Negative) Ur Leukocyte Esterase Moderate (2+) H (Negative) Urine RBC 0-2 (0-2) /HPF Urine WBC 21-50 H (0-5) /HPF Ur Squamous Epith Cells 6-10 (0-2) /HPF Urine Bacteria None Seen (None Seen) Hyaline Casts 0-2 (0-2) /LPF Stool Occult Blood NEGATIVE (NEGATIVE) Influenza Type A (PCR) NEGATIVE (Negative) Influenza Type B (PCR) NEGATIVE (Negative) RSV RNA Qual (PCR) NEGATIVE (Negative) SARS-CoV-2 RNA (RT-PCR) NEGATIVE (Negative) Independent Interpretation I performed an independent interpretation of an: EKG (Vent. Rate : 070 BPM Atrial Rate : 070 BPM P-R Int : 150 ms QRS Dur : 082 ms QT Int : 396 ms P-R-T Axes : 047 -19 043 degrees QTc Int : 427 ms Normal sinus rhythm Septal infarct , age undetermined Abnormal ECG When compared with ECG of 23-APR-2024 15:50, Septal infarct) and CT Scan Radiology Impression Discussion of test interpretation with radiology: I have reviewed the radiologist's reading. Critical Care Time Critical Care Time Critical Care Time: Yes Total Critical Care Time: 35 Attestation: I attest to this time spent taking care of the patient, obtaining history, physical, reviewing labs, imaging, speaking to my attending, specialist or hospitalist. Discharge Plan Discharge Clinical Impression: Cystitis, Physical deconditioning, Confusion, Acute hyperkalemia, Dehydration Patient Disposition: Admitted As Inpatient Prescriptions: No Action cefuroxime axetil 250 mg tablet 250 mg PO BID Qty: 14 0RF Print Language: Paraguayan
--- NOTE | 2024-04-29 12:26 | ECG_ITS ---
Test Reason : EPIGASTRIC PAIN Blood Pressure : / mmHG Vent. Rate : 070 BPM Atrial Rate : 070 BPM P-R Int : 150 ms QRS Dur : 082 ms QT Int : 396 ms P-R-T Axes : 047 -19 043 degrees QTc Int : 427 ms Normal sinus rhythm Septal infarct , age undetermined Abnormal ECG When compared with ECG of 23-APR-2024 15:50, Septal infarct is now Present Nonspecific T wave abnormality no longer evident in Lateral leads Referred By: Carla Francisco Electronically Signed By:CELESTINO NAVARRO MD
[2024-04-29 12:49] LABS: Basophils Absolute Auto 0.1 X10*3/uL (0.0-0.2); Basophils Percent Auto 0.3 % (0-2); Hematocrit 39.4 % (37.0-47.0); Hemoglobin 13.3 g/dl (12.0-16.0); Imm Gran Abs Auto 0.11 X10*3/uL (0.00-0.03); Imm Gran Pct Auto 0.7 % (0.0-0.4); Lymphocytes Absolute Auto 2.9 X10*3/uL (1.2-4.9); Lymphocytes Percent Auto 18.5 % (20-40); MANUAL DIFF FLAG SCAN; Mean Corpuscular HGB Conc 33.8 g/dl (31.0-35.0); Mean Corpuscular Hemoglobin 30.9 pg (27.0-33.0); Mean Corpuscular Volume 91.6 fL (80.0-98.0); Mean Platelet Volume 8.4 fL (9.4-12.3); Monocytes Absolute Auto 1.5 X10*3/uL (0.1-1.2); Neutrophils Absolute Auto 10.9 x10*3/uL (2.0-8.3); Neutrophils Percent Auto 70.5 % (45-73); Platelet Count 306 X10*3/uL (160-400); Red Cell Distribution Width 12.2 % (11.0-16.0); SCAN SMEAR FLAG 1; White Blood Count 15.4 X10*3/uL (4.8-10.8)
[2024-04-29 13:09] LABS: Alanine Aminotransferase 11 U/L (0-31); Albumin Level 4.2 g/dL (3.5-5.0); Alkaline Phosphatase 44 U/L (39-117); Anion Gap 13 (12-20); Aspartate Amino Transferase 22 U/L (5-31); Bilirubin Direct 0.1 mg/dL (0.0-0.5); Bilirubin Total 0.6 mg/dL (0.0-1.0); Blood Urea Nitrogen 30 mg/dL (9-16); Calcium 10.8 mg/dL (8.4-10.2); Carbon Dioxide 28 mmol/L (22-29); Chloride 96 mmol/L (96-108); Creatinine Clr Calc Pharmacy 34.3; Estimated Glomerular Filt Rate 43; Glucose Random 132 mg/dL (60-115); Lipase 67 U/L (8-78); Magnesium 1.8 mg/dL (1.6-2.6); Potassium 5.2 mmol/L (3.3-5.1); Sodium 132 mmol/L (135-145)
[2024-04-29 13:14] LABS: Troponin-I High Sensitivity 4.6 ng/L (<3.5-17.0)
[2024-04-29 13:26] LABS: SLIDE REVIEW VERIFIED
[2024-04-29 13:28] LABS: Influenza A PCR NEGATIVE (Negative); Influenza B PCR NEGATIVE (Negative); Resp Syncy Virus RNA Qual PCR NEGATIVE (Negative); SARS COV2 PCR INHOUSE NEGATIVE (Negative)
[2024-04-29] MEDS: Sodium Zirconium Cyclosilicate 10 GM POWD.PACK PO (14:26)
[2024-04-29 14:37] LABS: Appearance Urine Cloudy; Color Urine Dark Yellow; Glucose Urine UA Negative (Negative); Leukocyte Esterase Urine Moderate (2+) (Negative); Nitrite Urine Negative (Negative); UMIC TRIGGER UACC YES; Urine Blood Negative (Negative); Urine Ketones Trace mg/dL (Negative); Urine Protein 30 (1+) mg/dL (Neg-Trace)
[2024-04-29 14:37] LABS: OBS Int Ctl Valid YES; OBS1 NEGATIVE (NEGATIVE)
[2024-04-29] MEDS: iohexoL 350 MG/ML 100 ML INFUS..BTL IV (14:44)
[2024-04-29 14:50] LABS: Bacteria Urine None Seen (None Seen); Hyaline Casts Urine 0-2 /LPF (0-2); RBC Urine 0-2 /HPF (0-2); UACC Culture Trigger YES; WBC Urine 21-50 /HPF (0-5)
[2024-04-29] MEDS: 0.9 % Sodium Chloride 1,000 ML 999 ML IV (14:50)
[2024-04-29] MEDS: levoFLOXacin/D5W 500 MG/100 ML PIGGYBACK 100 MG IV (14:51)
[2024-04-29 15:28] VITALS: BP 134/64; PULSE 80; RESP 20; TEMP 36.6; O2SAT 98
--- NOTE | 2024-04-29 17:17 | PHA.MEDREC ---
Addendum entered by Bassam Walker RPh 04/29/24 18:34: Med rec was reviewed. Patient's other daughter brought in patient's medication bottles. She does not take cyclobenzaprine, vitamin C nor meclizine anymore. She takes sotalol 80 mg 1/2 tab bid. For levothyroxine 112 mcg, she takes 1 tablet every day except 2 tablets on THURSDAY. Original Note: Pharmacy Consult ? Medication Reconciliation Pharmacy has completed the medication reconciliation. spoke to daughters at bedside to confirm med list. Daughter had a list with he. she confirmed patient not taking Sulfamethoxazole-Trimethoprim 1 tab bid, last fill 8224 for 7 days, however patient is taking Cefuroxime axetil 250 mg bid, last fill [id number] for 7 days. patient has been taking it everyday. Daughter also says patient is on Cycobenzaprine 5 mg at bedtime prn, however there is no claim history.
--- NOTE | 2024-04-29 17:43 | P.HPHOSP_ITS ---
History of Present Illness Date of Service: 04/29/24 Attending physician on admission: Yael Cain Chief Complaint: Confusion, poor p.o. intake, malaise 83-year-old female with history of hypertension, hypothyroidism, hyperlipidemia, kyphosis presented to the ED earlier today accompanied by her daughters for evaluation of encephalopathy. Per her daughter's report, the patient was prescribed an antibiotic 2 weeks ago by her PCP empirically though no urinalysis/culture was obtained. Apparently, the patient was encephalopathic and did not ever waste picker the prescription. She was then seen on 04/23 in our ED for further evaluation of the confusion. Urinalysis at that time did appear consistent with UTI patient was discharged with Ceftin which she did complete per her daughters who were staying at her home at the time. Urine culture from that day unfortunately contaminated with normal shiva. She does report urinary urgency/frequency with limited output. They have also noted the patient feeling more tired, generally weak with poor p.o. intake. Has been noted to be gagging at times when swallowing but has not noted any choking. She is also reporting epigastric pain. She reports she did have an episode of dark stool but it was after taking a dose of Pepto-Bismol and has not had recurrence. The patient does not recall why she took the Pepto-Bismol. There has been no noted fevers, chills, sore throat, congestion, dysuria, nausea, vomiting, hematuria, diarrhea, hematochezia, cough, shortness of breath, lightheadedness, chest pain. On exam, the patient herself is oriented x3 but does appear forgetful, not recalling events her daughters are bringing up but is able to tell me some history. Since arrival, vital signs are stable. She has a leukocytosis of 15.4. Renal function consistent with baseline. Sodium 132, potassium 5.2. Calcium 10.8. Hepatic function within normal limits. Troponin 4.6. Lipase 67. Urinalysis with 2+ leukocytes, positive urinary sediment, negative bacteria. Stool occult blood negative. Negative for COVID-19, RSV, influenza. CT abdomen pelvis negative for acute intra-abdominal abnormality but shows ventral hernia containing fat and nonobstructed transverse colon, diverticulosis, and moderate to large sized hiatal hernia. In the ED, was given IV Levaquin, normal saline, lokelma. Review of Systems 2 Review of Systems: Yes all other systems are reviewed and are negative [facility] Medical History Kyphosis Hypothyroidism Recurrent UTI Hypertension Social History Smoked in Last 30 Days: No Use of substances other than those prescribed or required for medical reasons: No Advance Directives: No Advance Directives Information Provided: Yes Advance Directives Date on File: 06/26/20 Do you have a plan to hurt others: No Plan Meds Allergies Allergy/AdvReac Type Severity Reaction Status Date / Time codeine [Codeine] Allergy Mild RASH/ITCH Verified 04/29/24 12:23 penicillin G [Penicillin G] Allergy Mild RASH/ITCH Verified 04/29/24 12:23 SWELLING THROAT CLOSES BANDAIDS Allergy Mild REDDNESS Uncoded 04/23/24 15:49 adhesive tape Allergy Unknown Rash Uncoded 04/23/24 15:49 codeine Allergy Unknown Rash Uncoded 04/23/24 15:49 ENVIROMENTAL Allergy Unknown UNKNOWN Uncoded 04/23/24 15:49 penicillin Allergy Unknown Rash Uncoded 04/23/24 15:49 Active Medications: Current Medications Acetaminophen (Acetaminophen 325 Mg Tablet) 650 mg PO Q6H PRN PRN Reason: Pain, Mild (Pain Scale 1-3), fever or headache Ascorbic Acid (Ascorbic Acid 500 Mg Tablet) 500 mg PO DAILY CARLA Calcium Carbonate (Calcium Carbonate 750 Mg Tab.Chew) 750 mg PO Q4H PRN PRN Reason: Heartburn Cyclobenzaprine HCl (Cyclobenzaprine Hcl 5 Mg Tablet) 5 mg PO BEDTIME PRN PRN Reason: Muscle Pain Enoxaparin Sodium (Enoxaparin Sodium 40 Mg/0.4 Ml Syringe) 40 mg SUBCUT Q24H CARLA Levothyroxine Sodium (Levothyroxine Sodium 112 Mcg Tablet) 112 mcg PO MOTUWETHFRSA CARLA Levothyroxine Sodium (Levothyroxine Sodium 112 Mcg Tablet) 224 mcg PO SWEENEY CARLA Magnesium Hydroxide (Milk Of Magnesia 30 Ml Oral.Susp) 30 ml PO DAILY PRN PRN Reason: Constipation Meclizine HCl (Meclizine Hcl 25 Mg Tablet) 25 mg PO DAILY PRN PRN Reason: Dizziness Or Vertigo Melatonin (Melatonin 3 Mg Tablet) 6 mg PO BEDTIME PRN PRN Reason: Insomnia Multivitamins/Vitamin C (Multivitamin Tablet) 1 tab PO DAILY [facility] Omeprazole (Omeprazole 20 Mg Capsule.Dr) 20 mg PO BID@0630,1630 [facility] Ondansetron HCl (Ondansetron Odt 4 Mg Tab.Rapdis) 4 mg TRANSLINGU BID PRN PRN Reason: Nausea And Vomiting Oxybutynin Chloride (Oxybutynin Chloride Er 5 Mg Tab.Er.24) 10 mg PO DAILY [facility] Sodium Chloride (0.9 % Sodium Chloride Flush 3 Ml Syringe) 3 ml IVFLUSH QSHIFT [facility] Sotalol HCl (Sotalol Hcl 80 Mg Tablet) 80 mg PO DAILY [facility] Vitamin D (Cholecalciferol (Vitamin D3) 25 Mcg Tablet) 25 mcg PO DAILY [facility] Home Medications ?Medication ?Instructions ?Recorded ?Confirmed ?Last Taken ?Type cholecalciferol (vitamin D3) 25 25 mcg PO DAILY 04/29/24 04/29/24 04/29/24 History mcg (1,000 unit) capsule (Vitamin D3) levothyroxine 112 mcg tablet 112 mcg PO MOTUWETHFRSA 04/29/24 04/29/24 04/29/24 History levothyroxine 112 mcg tablet 224 mcg PO SWEENEY 04/29/24 04/29/24 04/24/24 History losartan 50 mg tablet 50 mg PO DAILY 04/29/24 04/29/24 04/29/24 History meloxicam 7.5 mg tablet 7.5 mg PO DAILY 04/29/24 04/29/24 04/29/24 History multivitamin 1 tab PO DAILY 04/29/24 04/29/24 04/29/24 History omeprazole 20 mg capsule,delayed 20 mg PO BID@0630,1630 04/29/24 04/29/24 04/29/24 History release ondansetron HCl 4 mg tablet 8 mg PO BID PRN Nausea And Vomiting 04/29/24 04/29/24 04/29/24 History oxybutynin chloride 10 mg 10 mg PO DAILY 04/29/24 04/29/24 04/29/24 History tablet,extended release 24 hr sotalol 80 mg tablet 40 mg PO BID 04/29/24 04/29/24 04/29/24 History Physical Exam 2 Vital Signs and Narrative: Vital Signs: Last Vital Signs Temp 97.8 F 04/29/24 15:28 Pulse 80 04/29/24 15:28 Resp 20 04/29/24 15:28 BP 134/64 04/29/24 15:28 Pulse Ox 98 04/29/24 15:28 O2 Del Method Room Air 04/29/24 15:28 BMI result Body Mass Index 23.4 Constitutional - Awake and Alert, No apparent distress Eyes - PERRLA, EOMI Cardiovascular - S1S2, RRR, No edema Respiratory - Normal lung expansion, Normal respiratory effort, No respiratory distress, CTA bilaterally Gastrointestinal - NT / ND; +BS; No rebound or guarding Extremities - no calf tenderness bilaterally, no swelling Skin - Warm/Dry Neurological - Alert & oriented x3, able to provide some history but having difficulty recalling details provided by her daughters, CN II-XII in tact Psychological - Appropriate affect Results Labs 04/29/24 12:42 04/29/24 12:42 Labs: Laboratory Results - last 24 hr 04/29/24 04/29/24 04/29/24 12:42 14:17 14:22 MCV 91.6 MCH 30.9 MCHC 33.8 RDW 12.2 Plt Count 306 MPV 8.4 L Immature Gran % (Auto) 0.7 H Neut % (Auto) 70.5 Lymph % (Auto) 18.5 L [place] % (Auto) 10.0 Eos % (Auto) 0.0 Baso % (Auto) 0.3 Lymph # (Auto) 2.9 [place] # (Auto) 1.5 H Eos # (Auto) 0.0 Baso # (Auto) 0.1 Abs Immat Gran (auto) 0.11 H Absolute Neuts (auto) 10.9 H Absolute Nucleated RBC 0.000 Nucleated RBC % (auto) 0.0 Smear Tech's Comments VERIFIED Anion Gap 13 Estim Creat Clear Calc 34.3 Estimated GFR 43 Random Glucose 132 H Calcium 10.8 H D Magnesium 1.8 Total Bilirubin 0.6 Direct Bilirubin 0.1 AST 22 ALT 11 Alkaline Phosphatase 44 Troponin I High Sens 4.6 D Total Protein 8.0 Albumin 4.2 Lipase 67 Urine Color Dark Yellow Urine Appearance Cloudy Urine pH 6.0 Ur Specific [place] 1.020 Urine Protein 30 (1+) H Urine Glucose (UA) Negative Urine Ketones Trace Urine Blood Negative Urine Nitrite Negative Ur Leukocyte Esterase Moderate (2+) H Urine RBC 0-2 Urine WBC 21-50 H Ur Squamous Epith Cells 6-10 Urine Bacteria None Seen Hyaline Casts 0-2 Stool Occult Blood NEGATIVE Influenza Type A (PCR) NEGATIVE Influenza Type B (PCR) NEGATIVE RSV RNA Qual (PCR) NEGATIVE SARS-CoV-2 RNA (RT-PCR) NEGATIVE Imaging Radiologist's Impressions: Impressions Abdomen/Pelvis CT 04/29/24 15:14 IMPRESSION: 1. No acute abnormality CT scan abdomen pelvis. 2. Ventral wall hernia containing fat and nonobstructed transverse colon. 3. Diverticulosis of colon. No acute abnormality of the bowel. 4. Status post cholecystectomy. 5. Moderate to large sized hiatal hernia. Fleischner guidelines were followed. Assessment and Plan (1) Dehydration: Status: Acute (2) Acute hyperkalemia: Status: Acute (3) Confusion: Status: Acute (4) Physical deconditioning: Status: Acute (5) Cystitis: Status: Acute Plan 83-year-old female with history of hypertension, hypothyroidism, hyperlipidemia, kyphosis admitted for further management of encephalopathy and weakness #Acute metabolic encephalopathy -?r/t UTI, head CT pending -monitor mentation, plan as below #Suspected acute UTI -UA with 2+ leukocytes, positive urinary sediment, negative bacteria -given 500 mg IV Levaquin in the ED 04/29, initiate IV ceftriaxone 1 g (initiate 04/30) -leukocytosis 15.4, but no other SIRS criteria. No sepsis on admission -follow CBC, cultures -outpt follow up with urology/urogynecology due to recurrent uti # acute dysphagia -moderate-large hiatal hernia noted on CT scan -nursing bedside swallow evaluation ordered, RN [facility] evaluation ordered -gastroenterology consult -continue p.o. PPI -and diet pending results of evaluations #Acute hypokalemia -likely r/t dehydration -given 10g lokelma and ivf -monitor lytes #Acute hyponatremia -given ivf, hold on further iv fluids -urine osm, serum osm pending # generalized weakness/deconditioning -PT eval # hypertension -hold losartan and sudden of hyperkalemia # hypothyroidism -continue Synthroid # CKD stage 3 -renal function baseline, outpatient follow-up # unspecified tachycardia -per family, patient had episodes of tachycardia/dysrrhythmia (deny AFib) r/t thyroid abnormalities and was started on sotalol as a result. DVT prophylaxis-Lovenox Full code Patient requires inpatient stay at least 2 midnights for management of acute encephalopathy likely due to UTI requiring IV antibiotics and close monitoring of mentation. Quality Stroke Does the patient have a stroke diagnosis?: No VTE Prior VTE?: No VTE Risk Level:: Medical - moderate - high VTE Device Contraindication: Treatment Not Indicated VTE Drug Contraindication: N/A - Med Ordered
--- NOTE | 2024-04-29 17:52 | MHC.EDTECH ---
purewick placed with verbal orders from RN. pt tolerated well.
[2024-04-29 18:17] LABS: Osmolality Urine 718 mosm/kg (373-1093)
[2024-04-29 18:27] LABS: Creatinine Urine 125.11 mg/dL
[2024-04-29 18:32] VITALS: BP 161/59; PULSE 67; RESP 16; TEMP 36.3; O2SAT 97
[2024-04-29 19:00] LABS: Osmolality, Serum 288 mosm/kg (281-305)
[2024-04-29] MEDS: Enoxaparin Sodium 40 MG/0.4 ML SYRINGE SUBCUT (20:04)
[2024-04-29] MEDS: Levothyroxine Sodium 112 MCG TABLET PO (20:05)
[2024-04-29 20:44] LABS: Anion Gap 12 (12-20); Blood Urea Nitrogen 22 mg/dL (9-16); Calcium 9.9 mg/dL (8.4-10.2); Carbon Dioxide 24 mmol/L (22-29); Chloride 101 mmol/L (96-108); Creatinine Clr Calc Pharmacy 50.3; Estimated Glomerular Filt Rate > 60; Glucose Random 111 mg/dL (60-115); Potassium 4.9 mmol/L (3.3-5.1); Sodium 132 mmol/L (135-145)
[2024-04-29 21:42] VITALS: BP 127/70; PULSE 88; RESP 16; TEMP 36.3; O2SAT 94
[2024-04-29] MEDS: Melatonin 3 MG TABLET 6 MG PO (21:57)
[2024-04-29] MEDS: 0.9 % Sodium Chloride Flush 3 ML SYRINGE IVFLUSH (23:27)
[2024-04-30] VITALS (7 sets, daily range): BP systolic 98–155; BP diastolic 56–91; PULSE 59–87; RESP 16–18; TEMP 36–36.4; O2SAT 94–97
[2024-04-30] MEDS: Omeprazole 20 MG CAPSULE.DR PO ×2 (06:20→16:35)
[2024-04-30] MEDS: Levothyroxine Sodium 112 MCG TABLET PO (06:20)
[2024-04-30] MEDS: 0.9 % Sodium Chloride 1,000 ML 80 ML IVCONT (06:24)
[2024-04-30 06:58] LABS: MANUAL DIFF FLAG NO
[2024-04-30 07:08] LABS: Basophils Percent Auto 0.3 % (0-2); Eosinophils Percent Auto 0.1 % (0-4); Hematocrit 37.1 % (37.0-47.0); Hemoglobin 12.7 g/dl (12.0-16.0); Imm Gran Abs Auto 0.08 X10*3/uL (0.00-0.03); Imm Gran Pct Auto 0.7 % (0.0-0.4); Lymphocytes Absolute Auto 2.5 X10*3/uL (1.2-4.9); Lymphocytes Percent Auto 21.7 % (20-40); Mean Corpuscular HGB Conc 34.2 g/dl (31.0-35.0); Mean Corpuscular Hemoglobin 30.7 pg (27.0-33.0); Mean Corpuscular Volume 89.6 fL (80.0-98.0); Mean Platelet Volume 8.8 fL (9.4-12.3); Monocytes Absolute Auto 1.1 X10*3/uL (0.1-1.2); Monocytes Percent Auto 9.8 % (2-11); Neutrophils Absolute Auto 7.8 x10*3/uL (2.0-8.3); Neutrophils Percent Auto 67.4 % (45-73); Platelet Count 292 X10*3/uL (160-400); Red Blood Count 4.14 X10*6/uL (4.20-5.50); Red Cell Distribution Width 11.9 % (11.0-16.0); White Blood Count 11.6 X10*3/uL (4.8-10.8)
[2024-04-30 07:21] LABS: Anion Gap 13 (12-20); Blood Urea Nitrogen 20 mg/dL (9-16); Carbon Dioxide 26 mmol/L (22-29); Chloride 99 mmol/L (96-108); Creatinine Clr Calc Pharmacy 52.3; Estimated Glomerular Filt Rate > 60; Glucose Random 129 mg/dL (60-115); Potassium 4.4 mmol/L (3.3-5.1); Sodium 134 mmol/L (135-145)
[2024-04-30] MEDS: Cholecalciferol (Vitamin D3) 25 MCG TABLET PO (09:28)
[2024-04-30] MEDS: Multivitamin TABLET 1 TAB PO (09:28)
[2024-04-30] MEDS: oxyBUTYnin chloride ER 5 MG TAB.ER.24 10 MG PO (09:28)
[2024-04-30] MEDS: Sotalol HCL 80 MG TABLET 40 MG PO ×2 (09:28→21:27)
[2024-04-30] MEDS: Ascorbic Acid 500 MG TABLET PO (09:28)
--- NOTE | 2024-04-30 10:11 | PM.GICN ---
History of Present Illness Data of Consult Service Date: 04/30/24 Requesting physician: Asia Padilla Primary Care Provider: Jesse Etienne MD HPI Reason for consult: gagging 83-year-old female with history of hypertension, hypothyroidism, hyperlipidemia, kyphosis who I am seeing for assessment for gagging. Daughter was present and helped with hx. PAtient seemed confused for last 1 week or so, with poor appetite and sharp epigastric pain without obvious exacerbating or relieving factors as well as gagging when swallowing, but no vomiting. Denies fevers, chills, sore throat, congestion, nausea, hematuria, diarrhea, hematochezia, cough, shortness of breath, lightheadedness, chest pain but does have urine freq. No rectal bleeding or melena. patient has been given fludis and ABX in the ED and given omerpazole. She no longer has the epigasric pain and has been swallowing better without any gagging or choking. Imaging did reveal a moderate sized hiatal hernia and spinal degeneration . Review of Systems Review of Systems: Constitutional : No Weight loss, No Fever, No Chills ENT/Mouth : No sore throat, No Rhinorrhea Eyes: No Swelling, No Redness Cardiovascular : No Chest Pain, No SOB, No Edema Respiratory : No Cough, No Sputum, No Wheezing Gastrointestinal : see HPI Genitourinary : NO Dysuria, No Urinary Frequency, No Hematuria, No Urgency Musculoskeletal : + joint pain, No Myalgias, No Joint Swelling Skin : No Skin Lesions, No rash Neuro : No Weakness, No Numbness, No Dizziness, No Headache Psych : No Anxiety/Panic, No Depression Heme/Lymph: No Bruising, No Lymphadenopathy Endocrine : No Polyuria, No Polydipsia All other systems reviewed and are negative. [facility] Past Medical History Medical History Kyphosis Hypothyroidism Recurrent UTI Hypertension Family History Pertinent family history: no FH of stomach ulcers Social History Social History Household Members: None Housing: House Do you presently have visiting nurse or other home services: No Patient Tobacco Use Status: Former Tobacco user Tobacco use type: Cigarette Smoked in Last 30 Days: No e-Cigarette/Vaping Use: Never Used Patient Interested in Nicotine Replacement: No Patient Given Instructions on How to Stop Smoking: No Second Hand Smoke Exposure: No Use of substances other than those prescribed or required for medical reasons: No Currently Displaying Signs/Symptoms of Drug Intoxication Withdrawal: No Any prior treatment program specific to substance use: No Have you been hit, kicked, punched, or otherwise hurt by someone within the past year? If so, by whom?: No Do you feel safe in your current relationship?: No Is there a partner from a previous relationship who is making you feel unsafe now?: No Are you made to feel afraid or neglected: No Advance Directives: No Advance Directives Information Provided: Yes Advance Directives on File: No Advance Directives Date on File: 06/26/20 Do you have a plan to hurt others: No Plan Recently lost weight without trying: No Eating poorly because of decreased appetite: Yes Nutrition Risks: No Nutritional Risk Patient : No : No Poor oral hygiene: No service: No Meds Allergies Allergy/AdvReac Type Severity Reaction Status Date / Time codeine [Codeine] Allergy Mild RASH/ITCH Verified 04/29/24 12:23 penicillin G [Penicillin G] Allergy Mild RASH/ITCH Verified 04/29/24 12:23 SWELLING THROAT CLOSES BANDAIDS Allergy Mild REDDNESS Uncoded 04/23/24 15:49 adhesive tape Allergy Unknown Rash Uncoded 04/23/24 15:49 codeine Allergy Unknown Rash Uncoded 04/23/24 15:49 ENVIROMENTAL Allergy Unknown UNKNOWN Uncoded 04/23/24 15:49 penicillin Allergy Unknown Rash Uncoded 04/23/24 15:49 Active Medications: Current Medications Acetaminophen (Acetaminophen 325 Mg Tablet) 650 mg PO Q6H PRN PRN Reason: Pain, Mild (Pain Scale 1-3), fever or headache Ascorbic Acid (Ascorbic Acid 500 Mg Tablet) 500 mg PO DAILY [facility] Last Admin: 04/30/24 09:28 Dose: 500 mg Calcium Carbonate (Calcium Carbonate 750 Mg Tab.Chew) 750 mg PO Q4H PRN PRN Reason: Heartburn Cyclobenzaprine HCl (Cyclobenzaprine Hcl 5 Mg Tablet) 5 mg PO BEDTIME PRN PRN Reason: Muscle Pain Enoxaparin Sodium (Enoxaparin Sodium 40 Mg/0.4 Ml Syringe) 40 mg SUBCUT Q24H [facility] Last Admin: 04/29/24 20:04 Dose: 40 mg Levothyroxine Sodium (Levothyroxine Sodium 112 Mcg Tablet) 112 mcg PO MoTuWeThFrSa@0600 [facility] Last Admin: 04/30/24 06:20 Dose: 112 mcg Levothyroxine Sodium (Levothyroxine Sodium 112 Mcg Tablet) 224 mcg PO Sweeney@0600 [facility] Magnesium Hydroxide (Milk Of Magnesia 30 Ml Oral.Susp) 30 ml PO DAILY PRN PRN Reason: Constipation Melatonin (Melatonin 3 Mg Tablet) 6 mg PO BEDTIME PRN PRN Reason: Insomnia Last Admin: 04/29/24 21:57 Dose: 6 mg Multivitamins/Vitamin C (Multivitamin Tablet) 1 tab PO DAILY [facility] Last Admin: 04/30/24 09:28 Dose: 1 tab Omeprazole (Omeprazole 20 Mg Capsule.Dr) 20 mg PO BID@0630,1630 [facility] Last Admin: 04/30/24 06:20 Dose: 20 mg Ondansetron HCl (Ondansetron Odt 4 Mg Tab.Rapdis) 4 mg TRANSLINGU BID PRN PRN Reason: Nausea And Vomiting Oxybutynin Chloride (Oxybutynin Chloride Er 5 Mg Tab.Er.24) 10 mg PO DAILY [facility] Last Admin: 04/30/24 09:28 Dose: 10 mg Sodium Chloride (0.9 % Sodium Chloride Flush 3 Ml Syringe) 3 ml IVFLUSH QSHIFT [facility] Last Admin: 04/30/24 09:31 Dose: Not Given Sotalol HCl (Sotalol Hcl 80 Mg Tablet) 40 mg PO BID [facility] Last Admin: 04/30/24 09:28 Dose: 40 mg Vitamin D (Cholecalciferol (Vitamin D3) 25 Mcg Tablet) 25 mcg PO DAILY [facility] Last Admin: 04/30/24 09:28 Dose: 25 mcg Home Medications ?Medication ?Instructions ?Recorded ?Confirmed ?Last Taken ?Type cholecalciferol (vitamin D3) 25 25 mcg PO DAILY 04/29/24 04/29/24 04/29/24 History mcg (1,000 unit) capsule (Vitamin D3) levothyroxine 112 mcg tablet 112 mcg PO MOTUWETHFRSA 04/29/24 04/29/24 04/29/24 History levothyroxine 112 mcg tablet 224 mcg PO SWEENEY 04/29/24 04/29/24 04/24/24 History losartan 50 mg tablet 50 mg PO DAILY 04/29/24 04/29/24 04/29/24 History meloxicam 7.5 mg tablet 7.5 mg PO DAILY 04/29/24 04/29/24 04/29/24 History multivitamin 1 tab PO DAILY 04/29/24 04/29/24 04/29/24 History omeprazole 20 mg capsule,delayed 20 mg PO BID@0630,1630 04/29/24 04/29/24 04/29/24 History release ondansetron HCl 4 mg tablet 8 mg PO BID PRN Nausea And Vomiting 04/29/24 04/29/24 04/29/24 History oxybutynin chloride 10 mg 10 mg PO DAILY 04/29/24 04/29/24 04/29/24 History tablet,extended release 24 hr sotalol 80 mg tablet 40 mg PO BID 04/29/24 04/29/24 04/29/24 History Physical Exam Vital Signs: Vital Signs: Last Vital Signs Temp 97.5 F 04/30/24 08:00 Pulse 76 04/30/24 08:10 Resp 18 04/30/24 08:00 BP 151/68 H 04/30/24 08:10 Pulse Ox 94 04/30/24 08:10 O2 Del Method Room Air 04/30/24 08:00 BMI result Body Mass Index 23.4 EXAM: GENERAL: The patient is well developed and nontoxic. VITAL SIGNS:see workflow HEENT: Nonicteric sclerae, PERRLA, EOMI. Oropharynx clear. Moist mucous membranes. Conjunctivae appear well perfused. No thyroid mass. CHEST: Chest wall is nontender. HEART: Regular rate and rhythm without murmurs. LUNGS: Clear to auscultation bilaterally. ABDOMEN: Soft, positive bowel sounds, nontender, no organomegaly.no flank tenderness SKIN: No rash, no excessive bruising, petechiae, or purpura. NEUROLOGIC: Cranial nerves II-XII intact without motor/sensory deficit. AAo x3 but slow Psych: normal affect Results Labs 04/30/24 06:43 04/30/24 06:43 Labs: Short CBC 04/29/24 04/30/24 Range/Units 12:42 06:43 WBC 15.4 H 11.6 H (4.8-10.8) X10*3/uL Hgb 13.3 12.7 (12.0-16.0) g/dl Hct 39.4 37.1 (37.0-47.0) % Plt Count 306 292 (160-400) X10*3/uL BMP 04/29/24 04/29/24 04/30/24 12:42 20:25 06:43 Sodium 132 L 132 L 134 L Potassium 5.2 H D 4.9 4.4 Chloride 96 101 99 Carbon Dioxide 28 24 26 BUN 30 H 22 H 20 H Creatinine 1.20 0.82 0.79 Calcium 10.8 H D 9.9 D 10.0 Liver Function 04/29/24 Range/Units 12:42 Total Bilirubin 0.6 (0.0-1.0) mg/dL Direct Bilirubin 0.1 (0.0-0.5) mg/dL AST 22 (5-31) U/L ALT 11 (0-31) U/L Alkaline Phosphatase 44 (39-117) U/L Albumin 4.2 (3.5-5.0) g/dL Urine 04/29/24 Range/Units 14:17 Urine Color Dark Yellow Urine Appearance Cloudy Urine pH 6.0 (5.0-9.0) Ur Specific [place] 1.020 (1.005-1.025) Urine Protein 30 (1+) H (Neg-Trace) mg/dL Urine Glucose (UA) Negative (Negative) mg/dL Assessment and Plan (1) Physical deconditioning: Status: Acute Plan 1/ Gagging with food, epigastric pajn and failure to thrive, seems better now since fluids and ABX, ? had underlying UTI or vaginitis with uncontrolled reflux due to hernia PLAN: 1/ Ba swallow with pill study to better delineate anatomy , depending on the that an consider EGD 2/ cont with reflux precautions 3/ check minerals, nutrition screen, TSH 4/ consider trial of estrogen cream Procedures Date of Service Date of Service: 04/30/24
[2024-04-30 13:57] LABS: Ferritin 228 ng/mL (10-250); Thyroid Stimulating Hormone 1.36 uIU/mL (0.32-4.0); Vitamin D 25-OH Total 45.3 ng/mL (>30)
[2024-04-30 14:10] LABS: Folate 14.7 ng/mL (> or = 4.0); Vitamin B12 349 pg/mL (200-900)
--- NOTE | 2024-04-30 14:32 | MHC.CM.PN ---
CM MET WITH PT AND DAUGHTER, SAMANTA, AT BEDSIDE PT LIVES ALONE BUT HER KIDS HAVE BEEN TAKING TURNS STAYING WITH HER FOR THE LAST WEEK SHE ALSO HAS SEVERAL SUPPORTIVE FRIENDS AND NEIGHBORS SAMANTA REPORTS CONCERN THAT NONE OF THE PTS CHILDREN LIVE CLOSE THOUGH, SO ARE NOT ALWAYS AVAILABLE PT HAS A CANE, ROLLATOR, AND GRAB BARS SHE SAYS SHE HAS A HCP AT HOME, COPY REQUESTED PCP: FRANCINE SINGLETON IMM DELIVERED DCP TBD: PT AND DAUGHTER REPORT BEING OPEN TO STR OR HOME WITH SERVICES A REFERRAL WAS MADE TO PTS PREFERRED SNFS. [facility] AND [facility] PER DISCUSSION TRANSPORT WILL BE DETERMINED BY DISPOSITION
--- NOTE | 2024-04-30 14:56 | P.PNIM_ITS ---
Subjective Subjective Date of Service: 04/30/24 Interval History: Admitted with multiple medical issues with decreased by mouth intake, AMS, concern for UTI. This morning patient awake alert, answering questions appropriately continued to have decreased by mouth intake feels food stuck in throat but no difficulty with swallowing, complaining of urinary urgency, no burning, no dysuria, denies fever, no chills, no diarrhea, complaining of mild abdominal discomfort, no acute events overnight. Review of Systems All other system reviewed and are negative. Physical Exam 2 Vital Signs: Vital Signs: Last Vital Signs Temp 97.5 F 04/30/24 08:00 Pulse 76 04/30/24 08:10 Resp 18 04/30/24 08:00 BP 151/68 H 04/30/24 08:10 Pulse Ox 94 04/30/24 08:10 O2 Del Method Room Air 04/30/24 08:00 BMI result Body Mass Index 23.4 Const: Other: General resting comfortably, in no acute distress. Anicteric sclera Neck no JVD. CVS regular rate rhythm, Respiratory lungs clear to auscultation, no respiratory distress, no wheeze, no rhonchi. Gastrointestinal abdomen soft, mild mid abdominal discomfort at site of ventral hernia, bowel sounds audible, no guarding , no rigidity. Extremities no edema. Neuro non focal , clear speech Skin no rash Psych appropriate affect Objective Data Active Medications Acetaminophen (Acetaminophen 325 Mg Tablet) 650 mg PO Q6H PRN PRN Reason: Pain, Mild (Pain Scale 1-3), fever or headache Ascorbic Acid (Ascorbic Acid 500 Mg Tablet) 500 mg PO DAILY [facility] Last Admin: 04/30/24 09:28 Dose: 500 mg Documented By: JENNIFER Calcium Carbonate (Calcium Carbonate 750 Mg Tab.Chew) 750 mg PO Q4H PRN PRN Reason: Heartburn Cyclobenzaprine HCl (Cyclobenzaprine Hcl 5 Mg Tablet) 5 mg PO BEDTIME PRN PRN Reason: Muscle Pain Enoxaparin Sodium (Enoxaparin Sodium 40 Mg/0.4 Ml Syringe) 40 mg SUBCUT Q24H [facility] Last Admin: 04/29/24 20:04 Dose: 40 mg Documented By: SANDRA Levothyroxine Sodium (Levothyroxine Sodium 112 Mcg Tablet) 112 mcg PO PrincessuWeThSa@0600 [facility] Last Admin: 04/30/24 06:20 Dose: 112 mcg Documented By: MICHELLE Levothyroxine Sodium (Levothyroxine Sodium 112 Mcg Tablet) 224 mcg PO Griggs@0600 [facility] Magnesium Hydroxide (Milk Of Magnesia 30 Ml Oral.Susp) 30 ml PO DAILY PRN PRN Reason: Constipation Melatonin (Melatonin 3 Mg Tablet) 6 mg PO BEDTIME PRN PRN Reason: Insomnia Last Admin: 04/29/24 21:57 Dose: 6 mg Documented By: MICHELLE Multivitamins/Vitamin C (Multivitamin Tablet) 1 tab PO DAILY [facility] Last Admin: 04/30/24 09:28 Dose: 1 tab Documented By: JENNIFER Omeprazole (Omeprazole 20 Mg Capsule.Dr) 20 mg PO BID@0630,1630 [facility] Last Admin: 04/30/24 06:20 Dose: 20 mg Documented By: MICHELLE Ondansetron HCl (Ondansetron Odt 4 Mg Tab.Rapdis) 4 mg TRANSLINGU BID PRN PRN Reason: Nausea And Vomiting Oxybutynin Chloride (Oxybutynin Chloride Er 5 Mg Tab.Er.24) 10 mg PO DAILY [facility] Last Admin: 04/30/24 09:28 Dose: 10 mg Documented By: JENNIFER Sodium Chloride (0.9 % Sodium Chloride Flush 3 Ml Syringe) 3 ml IVFLUSH QSHIFT [facility] Last Admin: 04/30/24 09:31 Dose: Not Given Documented By: JENNIFER Non-Admin Reason: IV Running Sotalol HCl (Sotalol Hcl 80 Mg Tablet) 40 mg PO BID [facility] Last Admin: 04/30/24 09:28 Dose: 40 mg Documented By: JENNIFER Vitamin D (Cholecalciferol (Vitamin D3) 25 Mcg Tablet) 25 mcg PO DAILY [facility] Last Admin: 04/30/24 09:28 Dose: 25 mcg Documented By: JENNIFER Labs 04/30/24 06:43 04/30/24 06:43 Labs: Laboratory Results - last 24 hr 04/29/24 04/29/24 04/29/24 14:17 18:45 20:25 MCV MCH MCHC RDW Plt Count MPV Immature Gran % (Auto) Neut % (Auto) Lymph % (Auto) [place] % (Auto) Eos % (Auto) Baso % (Auto) Lymph # (Auto) [place] # (Auto) Eos # (Auto) Baso # (Auto) Abs Immat Gran (auto) Absolute Neuts (auto) Absolute Nucleated RBC Nucleated RBC % (auto) Anion Gap 12 Estim Creat Clear Calc 50.3 Estimated GFR > 60 Random Glucose 111 Osmolality 288 Calcium 9.9 D Ferritin Vitamin B12 25-OH Vitamin D Total Folate TSH Urine Osmolality 718 Ur Random Sodium 129.0 Urine Creatinine 125.11 04/30/24 04/30/24 06:43 12:59 MCV 89.6 MCH 30.7 MCHC 34.2 RDW 11.9 Plt Count 292 MPV 8.8 L Immature Gran % (Auto) 0.7 H Neut % (Auto) 67.4 Lymph % (Auto) 21.7 [place] % (Auto) 9.8 Eos % (Auto) 0.1 Baso % (Auto) 0.3 Lymph # (Auto) 2.5 [place] # (Auto) 1.1 Eos # (Auto) 0.0 Baso # (Auto) 0.0 Abs Immat Gran (auto) 0.08 H Absolute Neuts (auto) 7.8 Absolute Nucleated RBC 0.000 Nucleated RBC % (auto) 0.0 Anion Gap 13 Estim Creat Clear Calc 52.3 Estimated GFR > 60 Random Glucose 129 H Osmolality Calcium 10.0 Ferritin 228 Vitamin B12 349 25-OH Vitamin D Total 45.3 Folate 14.7 TSH 1.36 Urine Osmolality Ur Random Sodium Urine Creatinine Microbiology Microbiology Results: Microbiology 04/29/24 Unknown Urine Culture - Preliminary Urine clean catch - Clean Catch Midstream Culture in progress. Assessment and Plan (1) Dehydration: Status: Acute (2) Acute hyperkalemia: Status: Acute (3) Physical deconditioning: Status: Acute Plan 83-year-old female with history of hypertension, hypothyroidism, hyperlipidemia, kyphosis admitted for further management of encephalopathy and weakness #Acute metabolic encephalopathy -likely at baseline -UA showed no bacteria, urine culture in progress, CT head showed microvascular ischemic changes no acute abnormality Normal TSH,b12,folate and electrolytes. # recurrent UTIs No acute UTI noted, recommend outpatient urology follow-up for urodynamic studies. # epigastric pain/gagging -moderate-large hiatal hernia noted on CT scan Decreased by mouth intake, seen by GI they recommend modified barium swallow and possible upper endoscopy on Thursday depending on imaging studies ,npo 7/12 midnight -continue p.o. PPI,diet as tolerated #Acute hyperkalemia -likely r/t dehydration,ARB, treated with Lokelma potassium normalized, hold losartan. #Acute hyponatremia -s/p IV fluids, sodium improved from 131-34. # generalized weakness/deconditioning -PT recommended short-term rehab versus home with services # hypertension -soft BP this afternoon continue sotalol losartan on hold as above # hypothyroidism -continue Synthroid, normal TSH # CKD stage 3 -renal function baseline, outpatient follow-up # unspecified tachycardia -per family, patient had episodes of tachycardia/dysrrhythmia (deny AFib) r/t thyroid abnormalities and was started on sotalol as a result. DVT prophylaxis-Lovenox Full code Patient requires continued inpatient stay for management of decreased by mouth intake, dyspepsia feeling of gagging, need further imaging studies and workup by contact center assistant. Quality Stroke Does the patient have a stroke diagnosis?: No VTE Prior VTE?: No VTE Risk Level:: Medical - moderate - high VTE Device Contraindication: Treatment Not Indicated VTE Drug Contraindication: N/A - Med Ordered
[2024-04-30] MEDS: 0.9 % Sodium Chloride Flush 3 ML SYRINGE IVFLUSH ×2 (16:35→21:28)
--- NOTE | 2024-04-30 16:59 | PC.NURSE ---
Plan for Barium swallow on Thursday, the . Pt should be NPOM from midnight Thursday.
[2024-04-30] MEDS: Enoxaparin Sodium 40 MG/0.4 ML SYRINGE SUBCUT (17:48)
[2024-05-01 03:30] VITALS: BP 97/50; PULSE 53; RESP 16; TEMP 36.2; O2SAT 97
[2024-05-01] MEDS: Omeprazole 20 MG CAPSULE.DR PO ×2 (05:47→17:16)
[2024-05-01] MEDS: Levothyroxine Sodium 112 MCG TABLET 224 MCG PO (05:48)
[2024-05-01 07:21] VITALS: BP 94/60; PULSE 59; RESP 14; TEMP 35.8; O2SAT 95
[2024-05-01] MEDS: 0.9 % Sodium Chloride Flush 3 ML SYRINGE IVFLUSH ×3 (09:33→20:27)
[2024-05-01] MEDS: oxyBUTYnin chloride ER 5 MG TAB.ER.24 10 MG PO (09:33)
[2024-05-01] MEDS: Cholecalciferol (Vitamin D3) 25 MCG TABLET PO (09:34)
[2024-05-01] MEDS: Ascorbic Acid 500 MG TABLET PO (09:34)
[2024-05-01] MEDS: Sotalol HCL 80 MG TABLET 40 MG PO ×2 (09:34→20:18)
[2024-05-01] MEDS: Multivitamin TABLET 1 TAB PO (09:35)
[2024-05-01] MEDS: Acetaminophen 325 MG TABLET 650 MG PO (09:38)
[2024-05-01 09:40] VITALS: BP 100/55; PULSE 67
--- NOTE | 2024-05-01 11:14 | HO.PM.IMPN ---
Subjective Subjective Date of Service: 05/01/24 Interval History: Being followed for multiple complaints including confusion, gagging when swallowing, epigastric pain poor appetite and weakness. This morning feeling good offers no complaints of abdominal pain, no gagging, no lightheadedness, no dizziness, no confusion. Review of Systems All other systems are reviewed and are negative. Physical Exam Vital Signs: Vital Signs: Last Vital Signs Temp 96.4 F L 05/01/24 07:21 Pulse 67 05/01/24 09:40 Resp 14 05/01/24 07:21 BP 100/55 L 05/01/24 09:40 Pulse Ox 95 05/01/24 07:21 O2 Del Method Room Air 05/01/24 07:21 BMI result Body Mass Index 23.4 Const: Other: General resting comfortably, in no acute distress. Anicteric sclera Neck no JVD. CVS regular rate rhythm, Respiratory lungs clear to auscultation, no respiratory distress, no wheeze, no rhonchi. Gastrointestinal abdomen soft, non tender, bowel sounds audible, no guarding , no rigidity. Extremities no edema. Neuro non focal , clear speech Skin no rash Psych appropriate affect Objective Data Active Medications Acetaminophen (Acetaminophen 325 Mg Tablet) 650 mg PO Q6H PRN PRN Reason: Pain, Mild (Pain Scale 1-3), fever or headache Last Admin: 05/01/24 09:38 Dose: 650 mg Documented By: JENNIFER Ascorbic Acid (Ascorbic Acid 500 Mg Tablet) 500 mg PO DAILY [facility] Last Admin: 05/01/24 09:34 Dose: 500 mg Documented By: JENNIFER Calcium Carbonate (Calcium Carbonate 750 Mg Tab.Chew) 750 mg PO Q4H PRN PRN Reason: Heartburn Cyclobenzaprine HCl (Cyclobenzaprine Hcl 5 Mg Tablet) 5 mg PO BEDTIME PRN PRN Reason: Muscle Pain Enoxaparin Sodium (Enoxaparin Sodium 40 Mg/0.4 Ml Syringe) 40 mg SUBCUT Q24H [facility] Last Admin: 04/30/24 17:48 Dose: 40 mg Documented By: JENNIFER Levothyroxine Sodium (Levothyroxine Sodium 112 Mcg Tablet) 112 mcg PO MoTuWeThFrSa@0600 [facility] Last Admin: 04/30/24 06:20 Dose: 112 mcg Documented By: MICHELLE Levothyroxine Sodium (Levothyroxine Sodium 112 Mcg Tablet) 224 mcg PO Griggs@0600 [facility] Last Admin: 05/01/24 05:48 Dose: 224 mcg Documented By: GUS Magnesium Hydroxide (Milk Of Magnesia 30 Ml Oral.Susp) 30 ml PO DAILY PRN PRN Reason: Constipation Melatonin (Melatonin 3 Mg Tablet) 6 mg PO BEDTIME PRN PRN Reason: Insomnia Last Admin: 04/29/24 21:57 Dose: 6 mg Documented By: MICHELLE Multivitamins/Vitamin C (Multivitamin Tablet) 1 tab PO DAILY [facility] Last Admin: 05/01/24 09:35 Dose: 1 tab Documented By: JENNIFER Omeprazole (Omeprazole 20 Mg Capsule.Dr) 20 mg PO BID@0630,1630 [facility] Last Admin: 05/01/24 05:47 Dose: 20 mg Documented By: GUS Ondansetron HCl (Ondansetron Odt 4 Mg Tab.Rapdis) 4 mg TRANSLINGU BID PRN PRN Reason: Nausea And Vomiting Oxybutynin Chloride (Oxybutynin Chloride Er 5 Mg Tab.Er.24) 10 mg PO DAILY [facility] Last Admin: 05/01/24 09:33 Dose: 10 mg Documented By: JENNIFER Sodium Chloride (0.9 % Sodium Chloride Flush 3 Ml Syringe) 3 ml IVFLUSH QSHIFT [facility] Last Admin: 05/01/24 09:33 Dose: 3 ml Documented By: JENNIFER Sotalol HCl (Sotalol Hcl 80 Mg Tablet) 40 mg PO BID [facility] Last Admin: 05/01/24 09:34 Dose: 40 mg Documented By: JENNIFER Vitamin D (Cholecalciferol (Vitamin D3) 25 Mcg Tablet) 25 mcg PO DAILY [facility] Last Admin: 05/01/24 09:34 Dose: 25 mcg Documented By: JENNIFER Labs 04/30/24 06:43 04/30/24 06:43 Labs: Laboratory Results - last 24 hr 04/30/24 12:59 Ferritin 228 Vitamin B12 349 25-OH Vitamin D Total 45.3 Folate 14.7 TSH 1.36 Microbiology Microbiology Results: Microbiology 04/29/24 Unknown Urine Culture - Final Urine clean catch - Clean Catch Midstream Pseudomonas aeruginosa Assessment and Plan (1) Acute hyperkalemia: Status: Acute (2) Confusion: Status: Acute (3) Physical deconditioning: Status: Acute Plan 83-year-old female with history of hypertension, hypothyroidism, hyperlipidemia, kyphosis admitted for further management of encephalopathy and weakness #Acute metabolic encephalopathy -resolved, seems to be at baseline -UA showed no bacteria, urine culture in progress, CT head showed microvascular ischemic changes no acute abnormality Normal TSH,b12,folate and electrolytes. # recurrent UTIs No acute UTI noted, recommend outpatient urology follow-up for urodynamic studies. # epigastric pain/gagging -moderate-large hiatal hernia noted on CT scan Decreased by mouth intake, seen by GI they recommend modified barium swallow and possible upper endoscopy depending on imaging studies ,npo 7/12 midnight -continue p.o. PPI,diet as tolerated #Acute hyperkalemia -likely r/t dehydration,ARB, treated with Lokelma potassium normalized, hold losartan. #Acute hyponatremia -s/p IV fluids, sodium improved from 131-34. # generalized weakness/deconditioning -PT recommended short-term rehab versus home with services # hypertension -soft BP this afternoon continue sotalol , losartan on hold as above # hypothyroidism -continue Synthroid, normal TSH # CKD stage 3 -renal function baseline, outpatient follow-up # unspecified tachycardia -per family, patient had episodes of tachycardia/dysrrhythmia (deny AFib) r/t thyroid abnormalities and was started on sotalol as a result. DVT prophylaxis-Lovenox Full code Patient requires continued inpatient stay for management of decreased by mouth intake, dyspepsia feeling of gagging, need further imaging studies and workup by armament installer. Quality Stroke Does the patient have a stroke diagnosis?: No VTE Prior VTE?: No VTE Risk Level:: Medical - moderate - high VTE Device Contraindication: Treatment Not Indicated VTE Drug Contraindication: N/A - Med Ordered
--- NOTE | 2024-05-01 12:29 | P.PNGI_ITS ---
Subjective Subjective Date of Service: 05/01/24 Interval History: doing better tolerating PO diet, not choking or gagging no abdominal pain no nausea, feels constipated Critical Care Time (minutes): 0 Physical Exam 2 Vital Signs: Vital Signs: Last Vital Signs Temp 96.4 F L 05/01/24 07:21 Pulse 67 05/01/24 09:40 Resp 14 05/01/24 07:21 BP 100/55 L 05/01/24 09:40 Pulse Ox 95 05/01/24 07:21 O2 Del Method Room Air 05/01/24 07:21 BMI result Body Mass Index 23.4 EXAM: GENERAL: The patient is well developed and nontoxic. VITAL SIGNS:see workflow HEENT: Nonicteric sclerae, PERRLA, EOMI. Oropharynx clear. Moist mucous membranes. Conjunctivae appear well perfused. No thyroid mass. CHEST: Chest wall is nontender. HEART: Regular rate and rhythm without murmurs. LUNGS: Clear to auscultation bilaterally. ABDOMEN: Soft, positive bowel sounds, nontender, no organomegaly.no flank tenderness--hernia noted in abdominal wall, reducible SKIN: No rash, no excessive bruising, petechiae, or purpura. NEUROLOGIC: Cranial nerves II-XII intact without motor/sensory deficit. Psych: normal affect Objective Data Labs 04/30/24 06:43 04/30/24 06:43 Labs: Laboratory Results - last 24 hr 04/30/24 12:59 Ferritin 228 Vitamin B12 349 25-OH Vitamin D Total 45.3 Folate 14.7 TSH 1.36 Microbiology Microbiology Results: Microbiology 04/29/24 Unknown Urine clean catch - Clean Catch Midstream Urine Culture - Final Pseudomonas aeruginosa Procedures Date of Service Date of Service: 05/01/24 Progress Note: A&P Assessment and plan (1) Dehydration: Status: Acute Plan 1/ CHoking and gagging, pob 2/2 hiatal hernia and uncontrolled reflux PLAN: 1/ Ba swallow pending 2/ cont with BID PPI as seems to be helping 3/ reflux precautions 4/ can use miralax for constipation and colace Time Spent With Patient Time: Total time managing care of this patient today ____ minutes. Quality Stroke Does the patient have a stroke diagnosis?: No VTE Prior VTE?: No VTE Risk Level:: Medical - moderate - high VTE Device Contraindication: Treatment Not Indicated VTE Drug Contraindication: N/A - Med Ordered
[2024-05-01 16:00] VITALS: BP 122/62; PULSE 57; RESP 12; TEMP 36.2; O2SAT 95
[2024-05-01] MEDS: Enoxaparin Sodium 40 MG/0.4 ML SYRINGE SUBCUT (17:16)
[2024-05-01 20:00] VITALS: BP 96/60; PULSE 62; RESP 16; TEMP 36.6; O2SAT 95
[2024-05-02] VITALS: BP 104/62; PULSE 60; RESP 18; TEMP 36.2; O2SAT 96
[2024-05-02 04:00] VITALS: BP 106/51; PULSE 57; RESP 18; TEMP 36.1; TEMP 36.3; O2SAT 94; O2SAT 98
[2024-05-02 06:55] VITALS: BP 98/54; PULSE 62; RESP 16; TEMP 35.5; O2SAT 95
[2024-05-02] MEDS: 0.9 % Sodium Chloride Flush 3 ML SYRINGE IVFLUSH ×2 (08:54→17:29)
--- NOTE | 2024-05-02 09:33 | MHC.SLORD ---
Speech Language Pathology Order Status: Patient is NPO for barium swallow study today. Swallow eval deferred until after she has the study done.
--- NOTE | 2024-05-02 11:35 | MHC.CM.PN ---
CM MET WITH PT, DAUGHTER SAMANTA (BEDSIDE), DAUGHTER LAUREN AND SON BARRERA (VIA SPEAKERPHONE) ALONG WITH [facility] [employer] [facility] WERE REVIEWED, WELL POSSIBLE DC PLANS THEY REPORT [facility] WOULD BE THEIR PREFERRED STR, HOWEVER THEY DO UNDERSTAND PT WOULD NEED TO QUALIFY. THEY REPORT THEY ARE CONCERNED BECAUSE THEY WILL ALL BE GOING OUT OF TOWN OVER THE NEXT 1-2 WEEKS TO DROP THEIR CHILDREN OFF AT COLLEGE, SO THERE WILL BE NO FAMILY AROUND TO ASSIST, THEREFORE THEY ARE HOPING SHE CAN GO TO STR WITH A PLAN FOR [facility] TO START RIGHT AFTER THAT. THEY UNDERSTAND THAT OTHER [facility] SERVICES WILL NOT BE ABLE TO START UNTIL AFTER PT IS HOME AND ASSESSED BY THE [facility] RN. REFERRALS ARE OUT FOR BOTH STR AND [facility]
--- NOTE | 2024-05-02 14:17 | HO.PM.IMPN ---
Subjective Subjective Date of Service: 05/02/24 Interval History: Complaining of dysuria, no burning, no recurrent fevers, no nausea,no vomiting, no abdominal pain, complaining of back pain right side today, had left-sided pain yesterday. Review of Systems All other system reviewed and are negative. Physical Exam Vital Signs: Vital Signs: Last Vital Signs Temp 96 F L 05/02/24 06:55 Pulse 62 05/02/24 06:55 Resp 16 05/02/24 06:55 BP 98/54 L 05/02/24 06:55 Pulse Ox 95 05/02/24 06:55 O2 Del Method Room Air 05/02/24 06:55 BMI result Body Mass Index 23.4 Const: Other: General resting comfortably, in no acute distress. Anicteric sclera Neck no JVD. CVS regular rate rhythm, Respiratory lungs clear to auscultation, no respiratory distress, no wheeze, no rhonchi. Gastrointestinal abdomen soft, non tender, bowel sounds audible, no guarding , no rigidity. Extremities no edema. No CVA tenderness Neuro non focal , clear speech Skin no rash Psych appropriate affect Objective Data Active Medications Acetaminophen (Acetaminophen 325 Mg Tablet) 650 mg PO Q6H PRN PRN Reason: Pain, Mild (Pain Scale 1-3), fever or headache Last Admin: 05/01/24 09:38 Dose: 650 mg Documented By: JENNIFER Ascorbic Acid (Ascorbic Acid 500 Mg Tablet) 500 mg PO DAILY [facility] Last Admin: 05/02/24 08:23 Dose: Not Given Documented By: COTEMA Non-Admin Reason: NPO Calcium Carbonate (Calcium Carbonate 750 Mg Tab.Chew) 750 mg PO Q4H PRN PRN Reason: Heartburn Cyclobenzaprine HCl (Cyclobenzaprine Hcl 5 Mg Tablet) 5 mg PO BEDTIME PRN PRN Reason: Muscle Pain Enoxaparin Sodium (Enoxaparin Sodium 40 Mg/0.4 Ml Syringe) 40 mg SUBCUT Q24H [facility] Last Admin: 05/01/24 17:16 Dose: 40 mg Documented By: JENNIFER Levothyroxine Sodium (Levothyroxine Sodium 112 Mcg Tablet) 112 mcg PO MoTuWeThFrSa@0600 [facility] Last Admin: 05/02/24 05:48 Dose: Not Given Documented By: GUS Non-Admin Reason: NPO Levothyroxine Sodium (Levothyroxine Sodium 112 Mcg Tablet) 224 mcg PO Griggs@0600 [facility] Last Admin: 05/01/24 05:48 Dose: 224 mcg Documented By: GUS Magnesium Hydroxide (Milk Of Magnesia 30 Ml Oral.Susp) 30 ml PO DAILY PRN PRN Reason: Constipation Melatonin (Melatonin 3 Mg Tablet) 6 mg PO BEDTIME PRN PRN Reason: Insomnia Last Admin: 04/29/24 21:57 Dose: 6 mg Documented By: MICHELLE Multivitamins/Vitamin C (Multivitamin Tablet) 1 tab PO DAILY [facility] Last Admin: 05/02/24 08:24 Dose: Not Given Documented By: MISSY Non-Admin Reason: NPO Omeprazole (Omeprazole 20 Mg Capsule.Dr) 20 mg PO BID@0630,1630 [facility] Last Admin: 05/02/24 05:48 Dose: Not Given Documented By: GUS Non-Admin Reason: NPO Ondansetron HCl (Ondansetron Odt 4 Mg Tab.Rapdis) 4 mg TRANSLINGU BID PRN PRN Reason: Nausea And Vomiting Oxybutynin Chloride (Oxybutynin Chloride Er 5 Mg Tab.Er.24) 10 mg PO DAILY [facility] Last Admin: 05/02/24 08:24 Dose: Not Given Documented By: MISSY Non-Admin Reason: NPO Sodium Chloride (0.9 % Sodium Chloride Flush 3 Ml Syringe) 3 ml IVFLUSH QSHIFT [facility] Last Admin: 05/02/24 08:54 Dose: 3 ml Documented By: MISSY Sotalol HCl (Sotalol Hcl 80 Mg Tablet) 40 mg PO BID [facility] Last Admin: 05/02/24 08:24 Dose: Not Given Documented By: MISSY Non-Admin Reason: NPO Vitamin D (Cholecalciferol (Vitamin D3) 25 Mcg Tablet) 25 mcg PO DAILY [facility] Last Admin: 05/02/24 08:23 Dose: Not Given Documented By: MISSY Non-Admin Reason: NPO Labs 04/30/24 06:43 04/30/24 06:43 Microbiology Microbiology Results: Microbiology 04/29/24 Unknown Urine Culture - Final Urine clean catch - Clean Catch Midstream Pseudomonas aeruginosa Assessment and Plan (1) Acute hyperkalemia: Status: Acute (2) Confusion: Status: Acute (3) Physical deconditioning: Status: Acute Plan 83-year-old female with history of hypertension, hypothyroidism, hyperlipidemia, kyphosis admitted for further management of encephalopathy and weakness #Acute metabolic encephalopathy -resolved, seems to be at baseline -UA showed no bacteria, urine culture grew Pseudomonas less than 50,000, CT head showed microvascular ischemic changes no acute abnormality Normal TSH,b12,folate and electrolytes. # recurrent UTIs UA showed no bacteria, urine culture growing Pseudomonas [id number], initially had leukocytosis now improving. Will obtain ID consult, repeat UA culture sensitivity, recommend outpatient urology follow-up for urodynamic studies. # epigastric pain/gagging -moderate-large hiatal hernia noted on CT scan Decreased by mouth intake, seen by GI they recommend modified barium swallow and possible upper endoscopy depending on imaging studies ,npo / midnight -continue p.o. PPI,diet as tolerated -barium swallow report pending -speech eval pending #Acute hyperkalemia -likely r/t dehydration,ARB, treated with Lokelma potassium normalized, hold losartan. #Acute hyponatremia -s/p IV fluids, sodium improved from 131-34. # generalized weakness/deconditioning -PT recommended short-term rehab versus home with services, family wishes rehab case investigator arranging for bed # hypertension -soft BP continue sotalol , losartan on hold as above # hypothyroidism -continue Synthroid, normal TSH # CKD stage 3 -renal function baseline, outpatient follow-up # unspecified tachycardia -per family, patient had episodes of tachycardia/dysrrhythmia (deny AFib) r/t thyroid abnormalities and was started on sotalol as a result. DVT prophylaxis-Lovenox Full code Patient requires continued inpatient stay for management of decreased by mouth intake, dyspepsia feeling of gagging, need further imaging studies and workup by utilization review specialist. Quality Stroke Does the patient have a stroke diagnosis?: No VTE Prior VTE?: No VTE Risk Level:: Medical - moderate - high VTE Device Contraindication: Treatment Not Indicated VTE Drug Contraindication: N/A - Med Ordered
[2024-05-02 15:56] VITALS: BP 96/50; PULSE 73; RESP 12; TEMP 36.3; O2SAT 96
--- NOTE | 2024-05-02 16:24 | MHC.SL.SWA ---
Risk of Aspiration Due to: None Dysphasia Diet Status: UPGRADE when cleared from full liquid diet Liquid Consistency and Strategies for Safe Swallow: Liquid Intake Recommendation: Thin Solid Food Consistency: Dietary Recommendations: Regular Oral Medication Intake: Whole with Liquid Please contact the pharmacy regarding appropriate crushable or liquid drug formulations that are available whenever modified delivery is recommended. Compensatory Strategies and Precautions to be Taken for Safe Swallow: Sitting Upright (90 deg) Supervision While Eating and Drinking for Safe Swallow: Intermittent Supervision Recommendation for Speech: Inpatient Speech Therapy Comment: Pt seen for bedside swallow eval. Recommend UPGRADE to regular solids and thin liquids when cleared to do so; currently on full liquid diet. Based on notes and conversation with pt/family, it is suspected that prior symptoms reported had been secondary to reflux in conjunction w/ not taking PPI and being sick. PUMPER GAUGER to f/u 1x to monitor toleration of diet. Recycling Specialist Clinican/Clinical Fellow: No Supervisory Statement: I have reviewed and agree with the student/clinical fellow's documentation: N/A Speech Language Pathologist: Ayse Araujo M.A., CCC-PUMPER GAUGER
[2024-05-02 16:31] LABS: Appearance Urine Clear; Color Urine Yellow; Glucose Urine UA Negative (Negative); Leukocyte Esterase Urine Small (1+) (Negative); Nitrite Urine Negative (Negative); PH 5.5 (5.0-9.0); UMIC TRIGGER UACC YES; Urine Blood Negative (Negative); Urine Ketones Negative (Negative); Urine Protein Negative (Neg-Trace)
[2024-05-02 16:43] LABS: Bacteria Urine None Seen (None Seen); Hyaline Casts Urine 0-2 /LPF (0-2); RBC Urine 0-2 /HPF (0-2); Squamous Epithelial Cell Urine 0-2 /HPF (0-2); UACC Culture Trigger YES; WBC Urine 0-5 /HPF (0-5)
[2024-05-02] MEDS: Enoxaparin Sodium 40 MG/0.4 ML SYRINGE SUBCUT (17:29)
[2024-05-02] MEDS: Omeprazole 20 MG CAPSULE.DR PO (17:29)
--- NOTE | 2024-05-02 17:57 | P.CNUR_ITS ---
History of Present Illness Consult details Consult date: 05/02/24 Narrative: CC: Recurrent UTI 83 yr female Admission with confusion and partially treated UTI with delay in picking up initial prescription States has UTI's every 3 months Imaging shows constipation - reports lack of fiber intake and lack of fluid intake Culture from 04/29 with vyas sensitive pseudomonas Complete abx course Add vit C and methenamine for discharge F/U with urology for estrogen therapy Review of Systems 2 Constitutional: Constitutional: Reports as per HPI and Reports no additional constitutional complaints Cardiovascular: Cardiovascular: Reports as per HPI and Reports no additional cardiovascular complaints Respiratory: Respiratory: Reports as per HPI and Reports no additional respiratory complaints Gastrointestinal: Gastrointestinal: Reports as per HPI and Reports no additional gastrointestinal complaints Genitourinary: Genitourinary: Reports as per HPI Musculoskeletal: Musculoskeletal: Reports no additional musculoskeletal complaints and Reports as per HPI Neurologic: Reports system reviewed and no additional complaints, except as documented and Reports as per HPI PMFSH Past Medical History Medical History (Updated 05/02/24 @ 18:14 by Eyal Olivares MD) Kyphosis Hypothyroidism Recurrent UTI Hypertension Social History Social History Household Members: None Housing: House Do you presently have visiting nurse or other home services: No Patient Tobacco Use Status: Former Tobacco user Tobacco use type: Cigarette Smoked in Last 30 Days: No e-Cigarette/Vaping Use: Never Used Patient Interested in Nicotine Replacement: No Patient Given Instructions on How to Stop Smoking: No Second Hand Smoke Exposure: No Use of substances other than those prescribed or required for medical reasons: No Currently Displaying Signs/Symptoms of Drug Intoxication Withdrawal: No Any prior treatment program specific to substance use: No Have you been hit, kicked, punched, or otherwise hurt by someone within the past year? If so, by whom?: No Do you feel safe in your current relationship?: No Is there a partner from a previous relationship who is making you feel unsafe now?: No Are you made to feel afraid or neglected: No Advance Directives: No Advance Directives Information Provided: Yes Advance Directives on File: No Advance Directives Date on File: 06/26/20 Do you have a plan to hurt others: No Plan Recently lost weight without trying: No Eating poorly because of decreased appetite: Yes Nutrition Risks: No Nutritional Risk Patient : No : No Poor oral hygiene: No service: No Meds Allergies Allergy/AdvReac Type Severity Reaction Status Date / Time codeine [Codeine] Allergy Mild RASH/ITCH Verified 04/29/24 12:23 penicillin G [Penicillin G] Allergy Mild RASH/ITCH Verified 04/29/24 12:23 SWELLING THROAT CLOSES BANDAIDS Allergy Mild REDDNESS Uncoded 04/23/24 15:49 adhesive tape Allergy Unknown Rash Uncoded 04/23/24 15:49 codeine Allergy Unknown Rash Uncoded 04/23/24 15:49 ENVIROMENTAL Allergy Unknown UNKNOWN Uncoded 04/23/24 15:49 penicillin Allergy Unknown Rash Uncoded 04/23/24 15:49 Active Medications: Current Medications Acetaminophen (Acetaminophen 325 Mg Tablet) 650 mg PO Q6H PRN PRN Reason: Pain, Mild (Pain Scale 1-3), fever or headache Last Admin: 05/01/24 09:38 Dose: 650 mg Ascorbic Acid (Ascorbic Acid 500 Mg Tablet) 500 mg PO DAILY [facility] Last Admin: 05/02/24 08:23 Dose: Not Given Calcium Carbonate (Calcium Carbonate 750 Mg Tab.Chew) 750 mg PO Q4H PRN PRN Reason: Heartburn Cyclobenzaprine HCl (Cyclobenzaprine Hcl 5 Mg Tablet) 5 mg PO BEDTIME PRN PRN Reason: Muscle Pain Enoxaparin Sodium (Enoxaparin Sodium 40 Mg/0.4 Ml Syringe) 40 mg SUBCUT Q24H [facility] Last Admin: 05/02/24 17:29 Dose: 40 mg Levothyroxine Sodium (Levothyroxine Sodium 112 Mcg Tablet) 112 mcg PO MoTuWeThFrSa@0600 [facility] Last Admin: 05/02/24 05:48 Dose: Not Given Levothyroxine Sodium (Levothyroxine Sodium 112 Mcg Tablet) 224 mcg PO Sweeney@0600 [facility] Last Admin: 05/01/24 05:48 Dose: 224 mcg Magnesium Hydroxide (Milk Of Magnesia 30 Ml Oral.Susp) 30 ml PO DAILY PRN PRN Reason: Constipation Melatonin (Melatonin 3 Mg Tablet) 6 mg PO BEDTIME PRN PRN Reason: Insomnia Last Admin: 04/29/24 21:57 Dose: 6 mg Multivitamins/Vitamin C (Multivitamin Tablet) 1 tab PO DAILY [facility] Last Admin: 05/02/24 08:24 Dose: Not Given Omeprazole (Omeprazole 20 Mg Capsule.Dr) 20 mg PO BID@0630,1630 [facility] Last Admin: 05/02/24 17:29 Dose: 20 mg Ondansetron HCl (Ondansetron Odt 4 Mg Tab.Rapdis) 4 mg TRANSLINGU BID PRN PRN Reason: Nausea And Vomiting Oxybutynin Chloride (Oxybutynin Chloride Er 5 Mg Tab.Er.24) 10 mg PO DAILY [facility] Last Admin: 05/02/24 08:24 Dose: Not Given Sodium Chloride (0.9 % Sodium Chloride Flush 3 Ml Syringe) 3 ml IVFLUSH QSHIFT [facility] Last Admin: 05/02/24 17:29 Dose: 3 ml Sotalol HCl (Sotalol Hcl 80 Mg Tablet) 40 mg PO BID [facility] Last Admin: 05/02/24 08:24 Dose: Not Given Vitamin D (Cholecalciferol (Vitamin D3) 25 Mcg Tablet) 25 mcg PO DAILY [facility] Last Admin: 05/02/24 08:23 Dose: Not Given Home Medications ?Medication ?Instructions ?Recorded ?Confirmed ?Last Taken ?Type cholecalciferol (vitamin D3) 25 25 mcg PO DAILY 04/29/24 04/29/24 04/29/24 History mcg (1,000 unit) capsule (Vitamin D3) levothyroxine 112 mcg tablet 112 mcg PO MOTUWETHFRSA 04/29/24 04/29/24 04/29/24 History levothyroxine 112 mcg tablet 224 mcg PO SWEENEY 04/29/24 04/29/24 04/24/24 History losartan 50 mg tablet 50 mg PO DAILY 04/29/24 04/29/24 04/29/24 History meloxicam 7.5 mg tablet 7.5 mg PO DAILY 04/29/24 04/29/24 04/29/24 History multivitamin 1 tab PO DAILY 04/29/24 04/29/24 04/29/24 History omeprazole 20 mg capsule,delayed 20 mg PO BID@0630,1630 04/29/24 04/29/24 04/29/24 History release ondansetron HCl 4 mg tablet 8 mg PO BID PRN Nausea And Vomiting 04/29/24 04/29/24 04/29/24 History oxybutynin chloride 10 mg 10 mg PO DAILY 04/29/24 04/29/24 04/29/24 History tablet,extended release 24 hr sotalol 80 mg tablet 40 mg PO BID 04/29/24 04/29/24 04/29/24 History Physical Exam 2 Vital Signs: Vital Signs: Last Vital Signs Temp 97.3 F 05/02/24 15:56 Pulse 73 05/02/24 15:56 Resp 12 05/02/24 15:56 BP 96/50 L 05/02/24 15:56 Pulse Ox 96 05/02/24 15:56 O2 Del Method Room Air 05/02/24 15:56 BMI result Body Mass Index 23.4 Const: General: cooperative, healthy appearing, comfortable and no acute distress Orientation/consciousness: patient oriented x3 HEENT: Face and sinus: Yes normal facial exam Mouth: moist mucous membranes Neck: Neck: Yes normal visual inspection, Yes full ROM and Yes trachea midline Chest: Chest palpation & inspection: normal inspection of the chest Resp: Effort & Inspection: normal respiratory effort, able to speak in complete sentences and no respiratory distress GI: Inspection: Yes normal to inspection Back/Spine/Pelvis: Cervical Spine: normal cervical lordosis Thoracic/Lumbar Spine: thoracic and lumbar spine normal to inspection Skin: General skin exam: no rashes or lesions noted Neuro: General: patient oriented x3, tone normal and moves all extremities Extrem: General: Yes normal to inspection and Yes capillary refill normal Results Labs 04/30/24 06:43 04/30/24 06:43 Labs: Abnormal lab results 05/02/24 Range/Units Unknown Ur Leukocyte Esterase Small (1+) H (Negative) Urine 04/29/24 05/02/24 Range/Units 14:17 Unknown Urine Color Dark Yellow Yellow Urine Appearance Cloudy Clear Urine pH 6.0 5.5 (5.0-9.0) Ur Specific [place] 1.020 1.010 (1.005-1.025) Urine Protein 30 (1+) H Negative (Neg-Trace) mg/dL Urine Glucose (UA) Negative Negative (Negative) mg/dL All other labs normal. Assessment and Plan (1) Recurrent UTI: Status: Acute Plan Medications Outpatient followup Procedures Date of Service Date of Service: 05/02/24
[2024-05-02 19:31] VITALS: BP 109/55; PULSE 66; RESP 18; TEMP 36.3; O2SAT 96
[2024-05-02] MEDS: Sotalol HCL 80 MG TABLET 40 MG PO (20:17)
[2024-05-03] MEDS: 0.9 % Sodium Chloride Flush 3 ML SYRINGE IVFLUSH ×2 (00:58→20:05)
[2024-05-03 03:54] VITALS: BP 110/55; PULSE 52; RESP 16; TEMP 36.2; O2SAT 97
[2024-05-03] MEDS: Omeprazole 20 MG CAPSULE.DR PO ×2 (05:58→17:02)
[2024-05-03 06:51] LABS: Hematocrit 32.7 % (37.0-47.0); Hemoglobin 11.1 g/dl (12.0-16.0); Mean Corpuscular HGB Conc 33.9 g/dl (31.0-35.0); Mean Corpuscular Hemoglobin 31.4 pg (27.0-33.0); Mean Corpuscular Volume 92.4 fL (80.0-98.0); Mean Platelet Volume 8.7 fL (9.4-12.3); Platelet Count 288 X10*3/uL (160-400); Red Blood Count 3.54 X10*6/uL (4.20-5.50); Red Cell Distribution Width 12.1 % (11.0-16.0); White Blood Count 6.7 X10*3/uL (4.8-10.8)
[2024-05-03 06:56] VITALS: BP 102/58; PULSE 61; RESP 17; TEMP 36.6; O2SAT 96
[2024-05-03 07:19] LABS: Anion Gap 13 (12-20); Blood Urea Nitrogen 26 mg/dL (9-16); Calcium 9.7 mg/dL (8.4-10.2); Carbon Dioxide 25 mmol/L (22-29); Chloride 102 mmol/L (96-108); Creatinine Clr Calc Pharmacy 34.9; Estimated Glomerular Filt Rate 44; Glucose Random 96 mg/dL (60-115); Potassium 4.2 mmol/L (3.3-5.1); Sodium 136 mmol/L (135-145)
[2024-05-03] MEDS: oxyBUTYnin chloride ER 5 MG TAB.ER.24 10 MG PO (08:06)
[2024-05-03] MEDS: Cholecalciferol (Vitamin D3) 25 MCG TABLET PO (08:08)
[2024-05-03] MEDS: Sotalol HCL 80 MG TABLET 40 MG PO ×2 (08:08→20:04)
[2024-05-03] MEDS: Ascorbic Acid 500 MG TABLET PO (08:08)
[2024-05-03] MEDS: Multivitamin TABLET 1 TAB PO (08:08)
[2024-05-03] MEDS: Acetaminophen 325 MG TABLET 650 MG PO ×2 (08:09→17:02)
[2024-05-03 10:25] VITALS: BP 102/58; PULSE 61; O2SAT 96
--- NOTE | 2024-05-03 11:24 | MHC.SPEECHCO ---
Per RN, Pt NPO for an upper endoscopy. Please see previous [employer] recommendations for Regular Solids and Thin Liquids once medically cleared.
--- NOTE | 2024-05-03 15:41 | P.PNIM_ITS ---
Subjective Subjective Date of Service: 05/03/24 Interval History: Acute events overnight. No complaints this a.m. Review of Systems Denies chest pain Denies shortness of breath Denies nausea vomiting diarrhea Denies fever chills Physical Exam 2 Vital Signs: Vital Signs: Last Vital Signs Temp 98 F 05/03/24 06:56 Pulse 61 05/03/24 10:25 Resp 17 05/03/24 06:56 BP 102/58 L 05/03/24 10:25 Pulse Ox 96 05/03/24 10:25 O2 Del Method Room Air 05/03/24 06:56 BMI result Body Mass Index 23.4 Const: Other: Awake alert no acute distress Resp: Other: Clear to auscultation bilaterally no rales rhonchi or wheezes Cardio: Other: No S4; positive S1-S2; no S3 murmurs rubs or gallops GI: Other: Soft nontender nondistended normoactive bowel sounds Extrem: Other: No edema bilaterally Objective Data Active Medications Acetaminophen (Acetaminophen 325 Mg Tablet) 650 mg PO Q6H PRN PRN Reason: Pain, Mild (Pain Scale 1-3), fever or headache Last Admin: 05/03/24 08:09 Dose: 650 mg Documented By: GENESIS Ascorbic Acid (Ascorbic Acid 500 Mg Tablet) 500 mg PO DAILY [facility] Last Admin: 05/03/24 08:08 Dose: 500 mg Documented By: GENESIS Calcium Carbonate (Calcium Carbonate 750 Mg Tab.Chew) 750 mg PO Q4H PRN PRN Reason: Heartburn Cyclobenzaprine HCl (Cyclobenzaprine Hcl 5 Mg Tablet) 5 mg PO BEDTIME PRN PRN Reason: Muscle Pain Docusate Sodium (Docusate Sodium 100 Mg Capsule) 100 mg PO BID PRN PRN Reason: Constipation Enoxaparin Sodium (Enoxaparin Sodium 40 Mg/0.4 Ml Syringe) 40 mg SUBCUT Q24H [facility] Last Admin: 05/02/24 17:29 Dose: 40 mg Documented By: COTEMA Levothyroxine Sodium (Levothyroxine Sodium 112 Mcg Tablet) 112 mcg PO MoTuWeThFrSa@0600 [facility] Last Admin: 05/03/24 06:01 Dose: Not Given Documented By: CRISTIAN Non-Admin Reason: Med Not Available Levothyroxine Sodium (Levothyroxine Sodium 112 Mcg Tablet) 224 mcg PO Griggs@0600 [facility] Last Admin: 05/01/24 05:48 Dose: 224 mcg Documented By: GUS Magnesium Hydroxide (Milk Of Magnesia 30 Ml Oral.Susp) 30 ml PO DAILY PRN PRN Reason: Constipation Melatonin (Melatonin 3 Mg Tablet) 6 mg PO BEDTIME PRN PRN Reason: Insomnia Last Admin: 04/29/24 21:57 Dose: 6 mg Documented By: MICHELLE Multivitamins/Vitamin C (Multivitamin Tablet) 1 tab PO DAILY [facility] Last Admin: 05/03/24 08:08 Dose: 1 tab Documented By: GENESIS Omeprazole (Omeprazole 20 Mg Capsule.Dr) 20 mg PO BID@0630,1630 [facility] Last Admin: 05/03/24 05:58 Dose: 20 mg Documented By: CRISTIAN Ondansetron HCl (Ondansetron Odt 4 Mg Tab.Rapdis) 4 mg TRANSLINGU BID PRN PRN Reason: Nausea And Vomiting Oxybutynin Chloride (Oxybutynin Chloride Er 5 Mg Tab.Er.24) 10 mg PO DAILY [facility] Last Admin: 05/03/24 08:06 Dose: 10 mg Documented By: GENESIS Sodium Chloride (0.9 % Sodium Chloride Flush 3 Ml Syringe) 3 ml IVFLUSH QSHIFT [facility] Last Admin: 05/03/24 09:20 Dose: Not Given Documented By: GENESIS Non-Admin Reason: Previously Administered Sotalol HCl (Sotalol Hcl 80 Mg Tablet) 40 mg PO BID [facility] Last Admin: 05/03/24 08:08 Dose: 40 mg Documented By: GENESIS Vitamin D (Cholecalciferol (Vitamin D3) 25 Mcg Tablet) 25 mcg PO DAILY [facility] Last Admin: 05/03/24 08:08 Dose: 25 mcg Documented By: GENESIS Labs 05/03/24 06:02 05/03/24 06:02 Labs: Laboratory Results - last 24 hr 05/02/24 05/03/24 Unknown 06:02 MCV 92.4 MCH 31.4 MCHC 33.9 RDW 12.1 Plt Count 288 MPV 8.7 L Absolute Nucleated RBC 0.000 Nucleated RBC % (auto) 0.0 Anion Gap 13 Estim Creat Clear Calc 34.9 Estimated GFR 44 Random Glucose 96 Calcium 9.7 Urine Color Yellow Urine Appearance Clear Urine pH 5.5 Ur Specific [place] 1.010 Urine Protein Negative Urine Glucose (UA) Negative Urine Ketones Negative Urine Blood Negative Urine Nitrite Negative Ur Leukocyte Esterase Small (1+) H Urine RBC 0-2 Urine WBC 0-5 Ur Squamous Epith Cells 0-2 Urine Bacteria None Seen Hyaline Casts 0-2 Microbiology Microbiology Results: Microbiology 05/02/24 Unknown Urine Culture - Preliminary Urine clean catch - Clean Catch Midstream Culture too young to evaluate. Assessment and Plan (1) Recurrent UTI: Status: Acute (2) Dehydration: Status: Acute Plan 83-year-old female with history of hypertension, hypothyroidism, hyperlipidemia, kyphosis admitted for further management of encephalopathy and weakness 1.Acute metabolic encephalopathy -resolved, seems to be at baseline -likely related to UTI 2.Recurrent UTIs -describes UTIs every other month. -currently with dysuria symptoms -likely colonization 3.Epigastric pain/gagging -moderate-large hiatal hernia noted on CT scan -PPI as ordered -barium swallow reviewed; NPO after midnight for EGD in a.m. 2.Acute hyperkalemia -repleted -follow renals/Divalents 3.Hypertension -acceptable control on current therapies -adjust as indicated 4.CKD stage 3 -stable and well compensated -follow renals and divalents Lovenox Full code Patient requires continued inpatient stay for management of decreased by mouth intake, dyspepsia feeling of gagging, need further imaging studies and workup by business banking relationship manager. Quality Stroke Does the patient have a stroke diagnosis?: No VTE Prior VTE?: No VTE Risk Level:: Medical - moderate - high VTE Device Contraindication: Treatment Not Indicated VTE Drug Contraindication: N/A - Med Ordered
--- NOTE | 2024-05-03 15:59 | MHC.CM.PN ---
EMR reviewed and per MD rounds, pt is not medically cleared for discharge due to management of decreased oral intake, requiring GI specialist to consult.
[2024-05-03 16:00] VITALS: BP 121/58; PULSE 62; RESP 18; TEMP 36.6; O2SAT 97
[2024-05-03] MEDS: Enoxaparin Sodium 40 MG/0.4 ML SYRINGE SUBCUT (17:02)
[2024-05-03] MEDS: Docusate Sodium 100 MG CAPSULE PO (17:02)
--- NOTE | 2024-05-03 18:57 | P.PNGI_ITS ---
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 VITAL SIGNS:see workflow HEENT: Nonicteric sclerae, PERRLA, EOMI. Oropharynx clear. Moist mucous membranes. Conjunctivae appear well perfused. No thyroid mass. CHEST: Chest wall is nontender. HEART: Regular rate and rhythm without murmurs. LUNGS: Clear to auscultation bilaterally. ABDOMEN: Soft, positive bowel sounds, nontender, no organomegaly.no flank tenderness--abdominal wall hernia SKIN: No rash, no excessive bruising, petechiae, or purpura. NEUROLOGIC: Cranial nerves II-XII intact without motor/sensory deficit. Psych: normal affect Objective Data Labs 05/03/24 06:02 05/03/24 06:02 Labs: Laboratory Results - last 24 hr 05/03/24 06:02 WBC 6.7 RBC 3.54 L Hgb 11.1 L Hct 32.7 L MCV 92.4 MCH 31.4 MCHC 33.9 RDW 12.1 Plt Count 288 MPV 8.7 L Absolute Nucleated RBC 0.000 Nucleated RBC % (auto) 0.0 Sodium 136 Potassium 4.2 Chloride 102 Carbon Dioxide 25 Anion Gap 13 BUN 26 H Creatinine 1.18 Estim Creat Clear Calc 34.9 Estimated GFR 44 Random Glucose 96 Calcium 9.7 Microbiology Microbiology Results: Microbiology 05/02/24 Unknown Urine clean catch - Clean Catch Midstream Urine Culture - Preliminary Culture too young to evaluate. 04/29/24 Unknown Urine clean catch - Clean Catch Midstream Urine Culture - Final Pseudomonas aeruginosa Procedures Date of Service Date of Service: 05/03/24 Progress Note: A&P Assessment and plan (1) Paraesophageal hernia: Status: Acute Plan 1/ Patient sx have improved with BID dosing PPI, however Ba swallow with several findings as above. Would recommend EGD for further assessment with possible dilation also r/o any distal esophageal mass-will try to do this tomorrow Time Spent With Patient Time: Total time managing care of this patient today ____ minutes. Quality Stroke Does the patient have a stroke diagnosis?: No VTE Prior VTE?: No VTE Risk Level:: Medical - moderate - high VTE Device Contraindication: Treatment Not Indicated VTE Drug Contraindication: N/A - Med Ordered
[2024-05-03 19:59] VITALS: BP 106/5; PULSE 68; RESP 18; TEMP 36.2; O2SAT 96
[2024-05-04] VITALS (14 sets, daily range): BP systolic 82–131; BP diastolic 33–78; PULSE 54–88; RESP 16–20; TEMP 36–36.7; O2SAT 93–97; BMI 22.8
[2024-05-04] MEDS: Sotalol HCL 80 MG TABLET 40 MG PO ×2 (07:57→21:04)
[2024-05-04] MEDS: Ascorbic Acid 500 MG TABLET PO (07:58)
[2024-05-04] MEDS: Acetaminophen 325 MG TABLET 650 MG PO (07:58)
[2024-05-04] MEDS: oxyBUTYnin chloride ER 5 MG TAB.ER.24 10 MG PO (07:58)
[2024-05-04] MEDS: Cholecalciferol (Vitamin D3) 25 MCG TABLET PO (07:58)
[2024-05-04] MEDS: 0.9 % Sodium Chloride Flush 3 ML SYRINGE IVFLUSH ×3 (08:02→21:06)
--- NOTE | 2024-05-04 10:08 | MHC.SLORD ---
Speech Language Pathology Order Status: Pt NPO for upper endoscopy today. PO trials witheld until after. 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
--- NOTE | 2024-05-04 11:36 | HO.ANESPROP2 ---
[facility] Active Problems Active Problems: All Active Problems Paraesophageal hernia (Acute) Recurrent UTI (Acute) Dehydration (Acute) Acute hyperkalemia (Acute) Confusion (Acute) Physical deconditioning (Acute) Cystitis (Acute) Past Medical History Medical History (Updated 05/03/24 @ 19:02 by Dash Payne MD) Kyphosis Hypothyroidism Recurrent UTI Hypertension Family History Family history of problems with anesthesia: No Surgical History History of Problems with Anesthesia: No Social History Social History Household Members: None Housing: House Do you presently have visiting nurse or other home services: No Patient Tobacco Use Status: Former Tobacco user Tobacco use type: Cigarette Smoked in Last 30 Days: No e-Cigarette/Vaping Use: Never Used Patient Interested in Nicotine Replacement: No Patient Given Instructions on How to Stop Smoking: No Second Hand Smoke Exposure: No Use of substances other than those prescribed or required for medical reasons: No Currently Displaying Signs/Symptoms of Drug Intoxication Withdrawal: No Any prior treatment program specific to substance use: No Have you been hit, kicked, punched, or otherwise hurt by someone within the past year? If so, by whom?: No Do you feel safe in your current relationship?: No Is there a partner from a previous relationship who is making you feel unsafe now?: No Are you made to feel afraid or neglected: No Are you DNR?: No Advance Directives: No Advance Directives Information Provided: Yes Advance Directives on File: No Advance Directives Date on File: 06/26/20 Do you have a plan to hurt others: No Plan Recently lost weight without trying: No Eating poorly because of decreased appetite: Yes Nutrition Risks: No Nutritional Risk Patient : No : No Poor oral hygiene: No service: No Meds Allergies Allergy/AdvReac Type Severity Reaction Status Date / Time codeine [Codeine] Allergy Mild RASH/ITCH Verified 05/04/24 11:31 penicillin G [Penicillin G] Allergy Mild RASH/ITCH Verified 05/04/24 11:31 SWELLING THROAT CLOSES BANDAIDS Allergy Mild REDDNESS Uncoded 05/04/24 11:31 adhesive tape Allergy Unknown Rash Uncoded 05/04/24 11:31 codeine Allergy Unknown Rash Uncoded 05/04/24 11:31 ENVIROMENTAL Allergy Unknown UNKNOWN Uncoded 05/04/24 11:31 penicillin Allergy Unknown Rash Uncoded 05/04/24 11:31 Active Medications: Current Medications Acetaminophen (Acetaminophen 325 Mg Tablet) 650 mg PO Q6H PRN PRN Reason: Pain, Mild (Pain Scale 1-3), fever or headache Last Admin: 05/04/24 07:58 Dose: 650 mg Ascorbic Acid (Ascorbic Acid 500 Mg Tablet) 500 mg PO DAILY [facility] Last Admin: 05/04/24 07:58 Dose: 500 mg Calcium Carbonate (Calcium Carbonate 750 Mg Tab.Chew) 750 mg PO Q4H PRN PRN Reason: Heartburn Cyclobenzaprine HCl (Cyclobenzaprine Hcl 5 Mg Tablet) 5 mg PO BEDTIME PRN PRN Reason: Muscle Pain Docusate Sodium (Docusate Sodium 100 Mg Capsule) 100 mg PO BID PRN PRN Reason: Constipation Last Admin: 05/03/24 17:02 Dose: 100 mg Enoxaparin Sodium (Enoxaparin Sodium 40 Mg/0.4 Ml Syringe) 40 mg SUBCUT Q24H [facility] Last Admin: 05/03/24 17:02 Dose: 40 mg Levothyroxine Sodium (Levothyroxine Sodium 112 Mcg Tablet) 112 mcg PO MoTuWeThFrSa@0600 [facility] Last Admin: 05/04/24 05:42 Dose: Not Given Levothyroxine Sodium (Levothyroxine Sodium 112 Mcg Tablet) 224 mcg PO Griggs@0600 [facility] Last Admin: 05/01/24 05:48 Dose: 224 mcg Magnesium Hydroxide (Milk Of Magnesia 30 Ml Oral.Susp) 30 ml PO DAILY PRN PRN Reason: Constipation Melatonin (Melatonin 3 Mg Tablet) 6 mg PO BEDTIME PRN PRN Reason: Insomnia Last Admin: 04/29/24 21:57 Dose: 6 mg Multivitamins/Vitamin C (Multivitamin Tablet) 1 tab PO DAILY [facility] Last Admin: 05/04/24 08:58 Dose: Not Given Omeprazole (Omeprazole 20 Mg Capsule.Dr) 20 mg PO BID@0630,1630 [facility] Last Admin: 05/04/24 05:42 Dose: Not Given Ondansetron HCl (Ondansetron Odt 4 Mg Tab.Rapdis) 4 mg TRANSLINGU BID PRN PRN Reason: Nausea And Vomiting Oxybutynin Chloride (Oxybutynin Chloride Er 5 Mg Tab.Er.24) 10 mg PO DAILY [facility] Last Admin: 05/04/24 07:58 Dose: 10 mg Sodium Chloride (0.9 % Sodium Chloride Flush 3 Ml Syringe) 3 ml IVFLUSH QSHIFT [facility] Last Admin: 05/04/24 08:02 Dose: 3 ml Sotalol HCl (Sotalol Hcl 80 Mg Tablet) 40 mg PO BID [facility] Last Admin: 05/04/24 07:57 Dose: 40 mg Vitamin D (Cholecalciferol (Vitamin D3) 25 Mcg Tablet) 25 mcg PO DAILY [facility] Last Admin: 05/04/24 07:58 Dose: 25 mcg Home Medications ?Medication ?Instructions ?Recorded ?Confirmed ?Last Taken ?Type cholecalciferol (vitamin D3) 25 25 mcg PO DAILY 04/29/24 04/29/24 04/29/24 History mcg (1,000 unit) capsule (Vitamin D3) levothyroxine 112 mcg tablet 112 mcg PO MOTUWETHFRSA 04/29/24 04/29/24 04/29/24 History levothyroxine 112 mcg tablet 224 mcg PO GRIGGS 04/29/24 04/29/24 04/24/24 History losartan 50 mg tablet 50 mg PO DAILY 04/29/24 04/29/24 04/29/24 History meloxicam 7.5 mg tablet 7.5 mg PO DAILY 04/29/24 04/29/24 04/29/24 History multivitamin 1 tab PO DAILY 04/29/24 04/29/24 04/29/24 History omeprazole 20 mg capsule,delayed 20 mg PO BID@0630,1630 04/29/24 04/29/24 04/29/24 History release ondansetron HCl 4 mg tablet 8 mg PO BID PRN Nausea And Vomiting 04/29/24 04/29/24 04/29/24 History oxybutynin chloride 10 mg 10 mg PO DAILY 04/29/24 04/29/24 04/29/24 History tablet,extended release 24 hr sotalol 80 mg tablet 40 mg PO BID 04/29/24 04/29/24 04/29/24 History Exam Height,Weight and Vital Signs: Height 5 ft 6 in Weight 63.957 kg Last Vital Signs Temp 97.4 F 05/04/24 07:32 Pulse 57 05/04/24 11:18 Resp 16 05/04/24 07:32 BP 119/78 05/04/24 11:18 Pulse Ox 97 05/04/24 11:18 O2 Del Method Room Air 05/04/24 07:32 Pertinent Lab Results Pertinent Lab Results: Laboratory Tests 04/29/24 04/29/24 04/29/24 12:42 14:17 14:22 WBC 15.4 H RBC 4.30 Hgb 13.3 Hct 39.4 MCV 91.6 MCH 30.9 MCHC 33.8 RDW 12.2 Plt Count 306 MPV 8.4 L Immature Gran % (Auto) 0.7 H Neut % (Auto) 70.5 Lymph % (Auto) 18.5 L [place] % (Auto) 10.0 Eos % (Auto) 0.0 Baso % (Auto) 0.3 Lymph # (Auto) 2.9 [place] # (Auto) 1.5 H Eos # (Auto) 0.0 Baso # (Auto) 0.1 Abs Immat Gran (auto) 0.11 H Absolute Neuts (auto) 10.9 H Absolute Nucleated RBC 0.000 Nucleated RBC % (auto) 0.0 Smear Tech's Comments VERIFIED Sodium 132 L Potassium 5.2 H D Chloride 96 Carbon Dioxide 28 Anion Gap 13 BUN 30 H Creatinine 1.20 Estim Creat Clear Calc 34.3 Estimated GFR 43 Random Glucose 132 H Osmolality Calcium 10.8 H D Magnesium 1.8 Ferritin Total Bilirubin 0.6 Direct Bilirubin 0.1 AST 22 ALT 11 Alkaline Phosphatase 44 Troponin I High Sens 4.6 D Total Protein 8.0 Albumin 4.2 Lipase 67 Vitamin B12 25-OH Vitamin D Total Folate TSH Urine Color Dark Yellow Urine Appearance Cloudy Urine pH 6.0 Ur Specific [place] 1.020 Urine Protein 30 (1+) H Urine Glucose (UA) Negative Urine Ketones Trace Urine Blood Negative Urine Nitrite Negative Ur Leukocyte Esterase Moderate (2+) H Urine RBC 0-2 Urine WBC 21-50 H Ur Squamous Epith Cells 6-10 Urine Bacteria None Seen Hyaline Casts 0-2 Urine Osmolality 718 Ur Random Sodium 129.0 Urine Creatinine 125.11 Stool Occult Blood NEGATIVE Influenza Type A (PCR) NEGATIVE Influenza Type B (PCR) NEGATIVE RSV RNA Qual (PCR) NEGATIVE SARS-CoV-2 RNA (RT-PCR) NEGATIVE 04/29/24 04/29/24 04/30/24 18:45 20:25 06:43 WBC 11.6 H RBC 4.14 L Hgb 12.7 Hct 37.1 MCV 89.6 MCH 30.7 MCHC 34.2 RDW 11.9 Plt Count 292 MPV 8.8 L Immature Gran % (Auto) 0.7 H Neut % (Auto) 67.4 Lymph % (Auto) 21.7 [place] % (Auto) 9.8 Eos % (Auto) 0.1 Baso % (Auto) 0.3 Lymph # (Auto) 2.5 [place] # (Auto) 1.1 Eos # (Auto) 0.0 Baso # (Auto) 0.0 Abs Immat Gran (auto) 0.08 H Absolute Neuts (auto) 7.8 Absolute Nucleated RBC 0.000 Nucleated RBC % (auto) 0.0 Smear Tech's Comments Sodium 132 L 134 L Potassium 4.9 4.4 Chloride 101 99 Carbon Dioxide 24 26 Anion Gap 12 13 BUN 22 H 20 H Creatinine 0.82 0.79 Estim Creat Clear Calc 50.3 52.3 Estimated GFR > 60 > 60 Random Glucose 111 129 H Osmolality 288 Calcium 9.9 D 10.0 Magnesium Ferritin Total Bilirubin Direct Bilirubin AST ALT Alkaline Phosphatase Troponin I High Sens Total Protein Albumin Lipase Vitamin B12 25-OH Vitamin D Total Folate TSH Urine Color Urine Appearance Urine pH Ur Specific [place] Urine Protein Urine Glucose (UA) Urine Ketones Urine Blood Urine Nitrite Ur Leukocyte Esterase Urine RBC Urine WBC Ur Squamous Epith Cells Urine Bacteria Hyaline Casts Urine Osmolality Ur Random Sodium Urine Creatinine Stool Occult Blood Influenza Type A (PCR) Influenza Type B (PCR) RSV RNA Qual (PCR) SARS-CoV-2 RNA (RT-PCR) 04/30/24 05/02/24 05/03/24 12:59 Unknown 06:02 WBC 6.7 RBC 3.54 L Hgb 11.1 L Hct 32.7 L MCV 92.4 MCH 31.4 MCHC 33.9 RDW 12.1 Plt Count 288 MPV 8.7 L Immature Gran % (Auto) Neut % (Auto) Lymph % (Auto) [place] % (Auto) Eos % (Auto) Baso % (Auto) Lymph # (Auto) [place] # (Auto) Eos # (Auto) Baso # (Auto) Abs Immat Gran (auto) Absolute Neuts (auto) Absolute Nucleated RBC 0.000 Nucleated RBC % (auto) 0.0 Smear Tech's Comments Sodium 136 Potassium 4.2 Chloride 102 Carbon Dioxide 25 Anion Gap 13 BUN 26 H Creatinine 1.18 Estim Creat Clear Calc 34.9 Estimated GFR 44 Random Glucose 96 Osmolality Calcium 9.7 Magnesium Ferritin 228 Total Bilirubin Direct Bilirubin AST ALT Alkaline Phosphatase Troponin I High Sens Total Protein Albumin Lipase Vitamin B12 349 25-OH Vitamin D Total 45.3 Folate 14.7 TSH 1.36 Urine Color Yellow Urine Appearance Clear Urine pH 5.5 Ur Specific [place] 1.010 Urine Protein Negative Urine Glucose (UA) Negative Urine Ketones Negative Urine Blood Negative Urine Nitrite Negative Ur Leukocyte Esterase Small (1+) H Urine RBC 0-2 Urine WBC 0-5 Ur Squamous Epith Cells 0-2 Urine Bacteria None Seen Hyaline Casts 0-2 Urine Osmolality Ur Random Sodium Urine Creatinine Stool Occult Blood Influenza Type A (PCR) Influenza Type B (PCR) RSV RNA Qual (PCR) SARS-CoV-2 RNA (RT-PCR) Airway Mallampati Class: II TM Dist: >3cm Neck ROM: Full Heart: rrr Lungs: cta Assessment and Plan Assessment Anesthesia Assessment: Anesthesia Plan Discussed and Chart Reviewed Final Anesthetic Review Family History of Problems with Anesthesia: No History of Problems with Anesthesia: No NPO: Yes ASA Class: III Final Preanesthetic Review: No Changes in Pt Med Stat, Meds/Allgs Chart Reviewed and Consent Obtained/Reviewed Patient Risk: Intermediate Procedure Risk: Intermediate Anesthetic Plan Anesthetic Plan: MAC: Disposition: Standard PACU
--- NOTE | 2024-05-04 12:27 | P.PNGI_ITS ---
Subjective Subjective Date of Service: 05/04/24 Interval History: denies any chest pain no nausea or regurg feels well Critical Care Time (minutes): 0 Physical Exam 2 Vital Signs: Vital Signs: Last Vital Signs Temp 97.7 F 05/04/24 11:45 Pulse 58 05/04/24 11:45 Resp 20 05/04/24 11:45 BP 131/56 L 05/04/24 11:45 Pulse Ox 96 05/04/24 11:45 O2 Del Method Room Air 05/04/24 11:45 BMI result Body Mass Index 22.8 EXAM: GENERAL: The patient is well developed and nontoxic. VITAL SIGNS:see workflow HEENT: Nonicteric sclerae, PERRLA, EOMI. Oropharynx clear. Moist mucous membranes. Conjunctivae appear well perfused. No thyroid mass. CHEST: Chest wall is nontender. HEART: Regular rate and rhythm without murmurs. LUNGS: Clear to auscultation bilaterally. ABDOMEN: Soft, positive bowel sounds, nontender, no organomegaly.no flank tenderness--ventral wall hernia SKIN: No rash, no excessive bruising, petechiae, or purpura. NEUROLOGIC: Cranial nerves II-XII intact without motor/sensory deficit. Psych: normal affect Objective Data Labs 05/03/24 06:02 05/03/24 06:02 Microbiology Microbiology Results: Microbiology 05/02/24 Unknown Urine clean catch - Clean Catch Midstream Urine Culture - Final 04/29/24 Unknown Urine clean catch - Clean Catch Midstream Urine Culture - Final Pseudomonas aeruginosa Procedures Date of Service Date of Service: 05/04/24 Progress Note: A&P Assessment and plan (1) Paraesophageal hernia: Status: Acute Plan 1/ Regurgitation and choking, ba swallow with several findings incl stricture and dialted esophagus, PLAN: /1 - cont with PPI 2/ EGD for further assessment and possibel dilation -biopsy Time Spent With Patient Time: Total time managing care of this patient today ____ minutes. Quality Stroke Does the patient have a stroke diagnosis?: No VTE Prior VTE?: No VTE Risk Level:: Medical - moderate - high VTE Device Contraindication: Treatment Not Indicated VTE Drug Contraindication: N/A - Med Ordered
--- NOTE | 2024-05-04 12:29 | MHC.SHP ---
Pre-Procedural Eval Section A - 24 Hr Update-Section A only Date of Service: 05/04/24 The patient is an INPATIENT: Yes The patient has been examined within 24 hours of the surgical procedure. The History & Physical has been completed within 30 days and I have reviewed it.: Yes Section B - Complete if H&P > 30 days Chief Complaint: encephalopathy, ?uti Allergies: Allergies Allergy/AdvReac Type Severity Reaction Status Date / Time codeine [Codeine] Allergy Mild RASH/ITCH Verified 05/04/24 11:31 penicillin G [Penicillin G] Allergy Mild RASH/ITCH Verified 05/04/24 11:31 SWELLING THROAT CLOSES BANDAIDS Allergy Mild REDDNESS Uncoded 05/04/24 11:31 adhesive tape Allergy Unknown Rash Uncoded 05/04/24 11:31 codeine Allergy Unknown Rash Uncoded 05/04/24 11:31 ENVIROMENTAL Allergy Unknown UNKNOWN Uncoded 05/04/24 11:31 penicillin Allergy Unknown Rash Uncoded 05/04/24 11:31 Plan Diagnosis/Plan: Unchanged I have reviewed the history and physical and performed a pertinent physical examination on my patient. No changes have occurred unless specified. Time Spent With Patient Time: Total time managing care of this patient today ____ minutes.
--- NOTE | 2024-05-04 12:45 | P.PNIM_ITS ---
Subjective Subjective Date of Service: 05/04/24 Interval History: Seen earlier this a.m.. No acute issues overnight. Remained NPO for EGD Review of Systems Denies chest pain Denies shortness of breath Denies nausea vomiting diarrhea Denies fever chills Physical Exam 2 Vital Signs: Vital Signs: Last Vital Signs Temp 97.7 F 05/04/24 11:45 Pulse 58 05/04/24 11:45 Resp 20 05/04/24 11:45 BP 131/56 L 05/04/24 11:45 Pulse Ox 96 05/04/24 11:45 O2 Del Method Room Air 05/04/24 11:45 BMI result Body Mass Index 22.8 Const: Other: Awake alert no acute distress Resp: Other: Clear to auscultation bilaterally no rales rhonchi or wheezes Cardio: Other: No S4; positive S1-S2; no S3 murmurs rubs or gallops GI: Other: Soft nontender nondistended normoactive bowel sounds Extrem: Other: No edema bilaterally Objective Data Active Medications Acetaminophen (Acetaminophen 325 Mg Tablet) 650 mg PO Q6H PRN PRN Reason: Pain, Mild (Pain Scale 1-3), fever or headache Last Admin: 05/04/24 07:58 Dose: 650 mg Documented By: GENESIS Ascorbic Acid (Ascorbic Acid 500 Mg Tablet) 500 mg PO DAILY [facility] Last Admin: 05/04/24 07:58 Dose: 500 mg Documented By: GENESIS Calcium Carbonate (Calcium Carbonate 750 Mg Tab.Chew) 750 mg PO Q4H PRN PRN Reason: Heartburn Cyclobenzaprine HCl (Cyclobenzaprine Hcl 5 Mg Tablet) 5 mg PO BEDTIME PRN PRN Reason: Muscle Pain Docusate Sodium (Docusate Sodium 100 Mg Capsule) 100 mg PO BID PRN PRN Reason: Constipation Last Admin: 05/03/24 17:02 Dose: 100 mg Documented By: GENESIS Enoxaparin Sodium (Enoxaparin Sodium 40 Mg/0.4 Ml Syringe) 40 mg SUBCUT Q24H [facility] Last Admin: 05/03/24 17:02 Dose: 40 mg Documented By: GENESIS Levothyroxine Sodium (Levothyroxine Sodium 112 Mcg Tablet) 112 mcg PO MoTuWeThFrSa@0600 [facility] Last Admin: 05/04/24 05:42 Dose: Not Given Documented By: ANNA Non-Admin Reason: NPO Levothyroxine Sodium (Levothyroxine Sodium 112 Mcg Tablet) 224 mcg PO Griggs@0600 [facility] Last Admin: 05/01/24 05:48 Dose: 224 mcg Documented By: GUS Magnesium Hydroxide (Milk Of Magnesia 30 Ml Oral.Susp) 30 ml PO DAILY PRN PRN Reason: Constipation Melatonin (Melatonin 3 Mg Tablet) 6 mg PO BEDTIME PRN PRN Reason: Insomnia Last Admin: 04/29/24 21:57 Dose: 6 mg Documented By: MICHELLE Multivitamins/Vitamin C (Multivitamin Tablet) 1 tab PO DAILY [facility] Last Admin: 05/04/24 08:58 Dose: Not Given Documented By: GENESIS Non-Admin Reason: Physician Approved Omeprazole (Omeprazole 20 Mg Capsule.Dr) 20 mg PO BID@0630,1630 [facility] Last Admin: 05/04/24 05:42 Dose: Not Given Documented By: ANNA Non-Admin Reason: NPO Ondansetron HCl (Ondansetron Odt 4 Mg Tab.Rapdis) 4 mg TRANSLINGU BID PRN PRN Reason: Nausea And Vomiting Oxybutynin Chloride (Oxybutynin Chloride Er 5 Mg Tab.Er.24) 10 mg PO DAILY [facility] Last Admin: 05/04/24 07:58 Dose: 10 mg Documented By: GENESIS Sodium Chloride (0.9 % Sodium Chloride Flush 3 Ml Syringe) 3 ml IVFLUSH QSHIFT [facility] Last Admin: 05/04/24 08:02 Dose: 3 ml Documented By: GENESIS Sotalol HCl (Sotalol Hcl 80 Mg Tablet) 40 mg PO BID [facility] Last Admin: 05/04/24 07:57 Dose: 40 mg Documented By: GENESIS Vitamin D (Cholecalciferol (Vitamin D3) 25 Mcg Tablet) 25 mcg PO DAILY [facility] Last Admin: 05/04/24 07:58 Dose: 25 mcg Documented By: GENESIS Labs 05/03/24 06:02 05/03/24 06:02 Microbiology Microbiology Results: Microbiology 05/02/24 Unknown Urine Culture - Final Urine clean catch - Clean Catch Midstream Assessment and Plan (1) Paraesophageal hernia: Status: Acute (2) Recurrent UTI: Status: Acute Plan 83-year-old female with history of hypertension, hypothyroidism, hyperlipidemia, kyphosis admitted for further management of encephalopathy and weakness 1.Epigastric pain/gagging -moderate-large hiatal hernia noted on CT scan -PPI as ordered -barium swallow reviewed; EGD this a.m. -further plans as per GI recommendation based on forthcoming results 2.Recurrent UTIs -describes UTIs every other month. -currently with dysuria symptoms -likely colonization 3..Acute hyperkalemia -repleted -follow renals/Divalents 4.Hypertension -acceptable control on current therapies -adjust as indicated 5.CKD stage 3 -stable and well compensated -follow renals and divalents Lovenox Full code Patient requires continued inpatient stay for management of decreased by mouth intake, dyspepsia feeling of gagging, need further imaging studies and workup by electromechanical assembly technician. Quality Stroke Does the patient have a stroke diagnosis?: No VTE Prior VTE?: No VTE Risk Level:: Medical - moderate - high VTE Device Contraindication: Treatment Not Indicated VTE Drug Contraindication: N/A - Med Ordered
--- NOTE | 2024-05-04 12:51 | W.PM.OPN ---
Operative Note Operative Note Date of Service: 05/04/24 Narrative: Procedure Description: EGD Indication: Hernia, regurgitation Anesthesia: MAC FLEXIBLE TRANSORAL UPPER GASTROINTESTINAL ENDOSCOPY UPPER ENDOSCOPY Consent: Indications for the procedure and potential complications of bleeding, perforation, reaction to medications and missed diagnosis were discussed with the patient and informed consent was obtained. Instrument: Olympus GIF H 190 J mid size upper endoscope Monitoring: Vital signs and clinical assessment, continuous EKG monitoring, Pulse oximetry, Carbon Dioxide monitoring and blood pressure monitoring were done throughout the procedure. Procedure: The patient was placed in the left lateral decubitis position and pre-procedure medications were administered and a bite block was placed. The endoscope was inserted into the mouth and advanced under direct vision to the third part of duodenum. A careful inspection was made as the upper endoscope was withdrawn including a retroflexed examination of the proximal stomach; Findings and interventions are described below. Findings: Larynx:normal Esophagus: GE junction at 35 cm, diaphragm hiatus at 40 cm, consistent with 5 cm para esophageal hernia, with proximal inlet patch noted, tertiary contractions noted, balloon dilation done to 16 mm at LES and 15 mm at UES< no tears seen Stomach: patchy gastritis . Biopsies were obtained. Grade 2 flap valve on retroflexed examination of the cardia. Duodenum: large gennaro grade III duodenal ulcer noted in the bulb Intervention: Biopsies as noted above, balloon dilation Impression/Findings: gastritis duodenal ulcer para esophageal hernia tertiary contractions inlet patch PLAN: high dose PPI e.g omeprazole 40 mg for 3 months then can titrate down if h pylori pos then treat PO diet as tolerated GERD precautions
--- NOTE | 2024-05-04 14:33 | W.PM.IDCN ---
History of Present Illness Data of Consult Service Date: 05/02/24 Requesting physician: Yael Cain Primary Care Provider: Jesse Etienne MD HPI Reason for consult: possible UTI She presents with weakness. She had vomiting and confusion two weeks ago and thought had UTI. She has occasional urgency and burning according to daughters. She has Pseudomonas 10,000 to [id number] I talked to her daughters and they report her being on antibiotics monthly. She has no fever or chills. Review of Systems Review of Systems: Yes all other systems are reviewed and are negative and Other (frequency at times) [facility] Past Medical History Medical History Kyphosis Hypothyroidism Recurrent UTI Hypertension Family History Family history: reviewed and not pertinent Social History Social History Household Members: None Housing: House Do you presently have visiting nurse or other home services: No Patient Tobacco Use Status: Former Tobacco user Tobacco use type: Cigarette Smoked in Last 30 Days: No e-Cigarette/Vaping Use: Never Used Patient Interested in Nicotine Replacement: No Patient Given Instructions on How to Stop Smoking: No Second Hand Smoke Exposure: No Use of substances other than those prescribed or required for medical reasons: No Currently Displaying Signs/Symptoms of Drug Intoxication Withdrawal: No Any prior treatment program specific to substance use: No Have you been hit, kicked, punched, or otherwise hurt by someone within the past year? If so, by whom?: No Do you feel safe in your current relationship?: No Is there a partner from a previous relationship who is making you feel unsafe now?: No Are you made to feel afraid or neglected: No Are you DNR?: No Advance Directives: No Advance Directives Information Provided: Yes Advance Directives on File: No Advance Directives Date on File: 06/26/20 Do you have a plan to hurt others: No Plan Recently lost weight without trying: No Eating poorly because of decreased appetite: Yes Nutrition Risks: No Nutritional Risk Patient : No : No Poor oral hygiene: No service: No Meds Allergies Allergy/AdvReac Type Severity Reaction Status Date / Time codeine [Codeine] Allergy Mild RASH/ITCH Verified 05/04/24 11:31 penicillin G [Penicillin G] Allergy Mild RASH/ITCH Verified 05/04/24 11:31 SWELLING THROAT CLOSES BANDAIDS Allergy Mild REDDNESS Uncoded 05/04/24 11:31 adhesive tape Allergy Unknown Rash Uncoded 05/04/24 11:31 codeine Allergy Unknown Rash Uncoded 05/04/24 11:31 ENVIROMENTAL Allergy Unknown UNKNOWN Uncoded 05/04/24 11:31 penicillin Allergy Unknown Rash Uncoded 05/04/24 11:31 Active Medications: Current Medications Acetaminophen (Acetaminophen 325 Mg Tablet) 650 mg PO Q6H PRN PRN Reason: Pain, Mild (Pain Scale 1-3), fever or headache Last Admin: 05/04/24 07:58 Dose: 650 mg Ascorbic Acid (Ascorbic Acid 500 Mg Tablet) 500 mg PO DAILY [facility] Last Admin: 05/04/24 07:58 Dose: 500 mg Calcium Carbonate (Calcium Carbonate 750 Mg Tab.Chew) 750 mg PO Q4H PRN PRN Reason: Heartburn Cyclobenzaprine HCl (Cyclobenzaprine Hcl 5 Mg Tablet) 5 mg PO BEDTIME PRN PRN Reason: Muscle Pain Docusate Sodium (Docusate Sodium 100 Mg Capsule) 100 mg PO BID PRN PRN Reason: Constipation Last Admin: 05/03/24 17:02 Dose: 100 mg Enoxaparin Sodium (Enoxaparin Sodium 40 Mg/0.4 Ml Syringe) 40 mg SUBCUT Q24H [facility] Last Admin: 05/03/24 17:02 Dose: 40 mg Levothyroxine Sodium (Levothyroxine Sodium 112 Mcg Tablet) 112 mcg PO MoTuWeThFrSa@0600 [facility] Last Admin: 05/04/24 05:42 Dose: Not Given Levothyroxine Sodium (Levothyroxine Sodium 112 Mcg Tablet) 224 mcg PO Sweeney@0600 [facility] Last Admin: 05/01/24 05:48 Dose: 224 mcg Magnesium Hydroxide (Milk Of Magnesia 30 Ml Oral.Susp) 30 ml PO DAILY PRN PRN Reason: Constipation Melatonin (Melatonin 3 Mg Tablet) 6 mg PO BEDTIME PRN PRN Reason: Insomnia Last Admin: 04/29/24 21:57 Dose: 6 mg Multivitamins/Vitamin C (Multivitamin Tablet) 1 tab PO DAILY [facility] Last Admin: 05/04/24 08:58 Dose: Not Given Omeprazole (Omeprazole 40 Mg Capsule.) 40 mg PO BID@0630,1630 [facility] Ondansetron HCl (Ondansetron Odt 4 Mg Tab.Rapdis) 4 mg TRANSLINGU BID PRN PRN Reason: Nausea And Vomiting Oxybutynin Chloride (Oxybutynin Chloride Er 5 Mg Tab.Er.24) 10 mg PO DAILY [facility] Last Admin: 05/04/24 07:58 Dose: 10 mg Sodium Chloride (0.9 % Sodium Chloride Flush 3 Ml Syringe) 3 ml IVFLUSH QSHIFT [facility] Last Admin: 05/04/24 08:02 Dose: 3 ml Sotalol HCl (Sotalol Hcl 80 Mg Tablet) 40 mg PO BID [facility] Last Admin: 05/04/24 07:57 Dose: 40 mg Vitamin D (Cholecalciferol (Vitamin D3) 25 Mcg Tablet) 25 mcg PO DAILY [facility] Last Admin: 05/04/24 07:58 Dose: 25 mcg Home Medications ?Medication ?Instructions ?Recorded ?Confirmed ?Last Taken ?Type cholecalciferol (vitamin D3) 25 25 mcg PO DAILY 04/29/24 04/29/24 04/29/24 History mcg (1,000 unit) capsule (Vitamin D3) levothyroxine 112 mcg tablet 112 mcg PO MOTUWETHFRSA 04/29/24 04/29/24 04/29/24 History levothyroxine 112 mcg tablet 224 mcg PO SWEENEY 04/29/24 04/29/24 04/24/24 History losartan 50 mg tablet 50 mg PO DAILY 04/29/24 04/29/24 04/29/24 History meloxicam 7.5 mg tablet 7.5 mg PO DAILY 04/29/24 04/29/24 04/29/24 History multivitamin 1 tab PO DAILY 04/29/24 04/29/24 04/29/24 History omeprazole 20 mg capsule,delayed 20 mg PO BID@0630,1630 04/29/24 04/29/24 04/29/24 History release ondansetron HCl 4 mg tablet 8 mg PO BID PRN Nausea And Vomiting 04/29/24 04/29/24 04/29/24 History oxybutynin chloride 10 mg 10 mg PO DAILY 04/29/24 04/29/24 04/29/24 History tablet,extended release 24 hr sotalol 80 mg tablet 40 mg PO BID 04/29/24 04/29/24 04/29/24 History Physical Exam Vital Signs: Vital Signs: Last Vital Signs Temp 97.0 F 05/04/24 13:24 Pulse 54 05/04/24 13:24 Resp 18 05/04/24 13:24 BP 109/48 L 05/04/24 13:24 Pulse Ox 96 05/04/24 13:24 O2 Del Method Room Air 05/04/24 13:24 BMI result Body Mass Index 22.8 Const: General: cooperative HEENT: Head: Yes normal to inspection Face and sinus: Yes normal facial exam Mouth: Normal oral and palatal mucosa present Teeth and gingiva: dentition normal Eyes: General: appearance normal, both eyes and all related structures Pupils: Equal, round and reactive pupils present Resp: Effort & Inspection: normal respiratory effort Cardio: Rate: regular rate Rhythm: regular rhythm GI: Palpation (GI): Soft to palpation and nontender : General: Yes no CVA tenderness Back/Spine/Pelvis: Back: no CVA tenderness Skin: General skin exam: no rashes or lesions noted Neuro: General: moves all extremities Cranial nerves: Yes Equal, round and reactive pupils present Extrem: General: Yes normal to inspection Psych: Appearance: grossly normal Results Labs 05/03/24 06:02 05/03/24 06:02 Microbiology Microbiology Results: Microbiology 05/02/24 Unknown Urine clean catch - Clean Catch Midstream Urine Culture - Final 04/29/24 Unknown Urine clean catch - Clean Catch Midstream Urine Culture - Final Pseudomonas aeruginosa Assessment and Plan (1) Recurrent UTI: Status: Acute (2) Dehydration: Status: Acute Plan I do not see evidence of UTI at this time. She has no fever or chills. She has low colony count Would hold antibiotics at this time. See Urology.
--- NOTE | 2024-05-04 15:18 | MHC.CM.PN ---
DCP: [facility] for STR tomorrow 05/05, pre-booked at 1pm via BLS/[facility]. New HCP completed and now on file. Second IMM given 05/04. Pts daughter/HCP Corry and pt aware and in agreement with discharge plan. Hospitalist aware.
--- NOTE | 2024-05-04 15:27 | MHC.CM.PN ---
IMM completed and HCP. Original HCP given to patient along with copies. Copy placed in chart for EMR.
[2024-05-04] MEDS: Omeprazole 40 MG CAPSULE.DR PO (16:13)
[2024-05-04 16:19] LABS: Vitamin A 61 mcg/dL (38-98)
[2024-05-04 17:12] LABS: Nicotinamide <20 ng/mL (see note); Vit B3 - Nicotinic Acid <20 ng/mL (see note); Vitamin B2 (Riboflavin) 72.4 nmol/L (6.2-39.0)
[2024-05-04] MEDS: Enoxaparin Sodium 40 MG/0.4 ML SYRINGE SUBCUT (17:57)
[2024-05-05] MEDS: Omeprazole 40 MG CAPSULE.DR PO ×2 (06:03→16:29)
[2024-05-05] MEDS: Levothyroxine Sodium 112 MCG TABLET PO (06:03)
[2024-05-05 06:23] LABS: Vitamin B1 39 nmol/L (8-30)
[2024-05-05 07:43] VITALS: BP 118/56; PULSE 64; RESP 16; TEMP 36.7; O2SAT 97
[2024-05-05] MEDS: Multivitamin TABLET 1 TAB PO (08:35)
[2024-05-05] MEDS: Sotalol HCL 80 MG TABLET 40 MG PO ×2 (08:35→20:02)
[2024-05-05] MEDS: oxyBUTYnin chloride ER 5 MG TAB.ER.24 10 MG PO (08:35)
[2024-05-05] MEDS: 0.9 % Sodium Chloride Flush 3 ML SYRINGE IVFLUSH ×3 (08:36→23:49)
[2024-05-05] MEDS: Ascorbic Acid 500 MG TABLET PO (08:36)
[2024-05-05] MEDS: Cholecalciferol (Vitamin D3) 25 MCG TABLET PO (08:36)
--- NOTE | 2024-05-05 09:07 | MHC.CM.PN ---
Addendum entered by Rossana Verduzco 05/05/24 12:54: DC MOVED TO 1530 PENDING BM FROM PT. SNF AWARE Original Note: IMM 05/04/24 Patient is discharged to [facility] for STR. 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
--- NOTE | 2024-05-05 09:47 | HO.POSTANES ---
Post Anesthesia Evaluation Post Anesthesia Evaluation Date of Service: 05/04/24 Vital Signs: Vital Signs Temp Pulse Resp BP Pulse Ox O2 Del Method 05/05/24 07:43 98.0 F 64 16 118/56 L 97 Room Air 05/04/24 23:25 97.4 F 56 16 116/62 96 Room Air Anesthesia: Monitored Mental Status: Awake Pain Control: Satisfactory Nausea/Vomiting: None Hydration: Adequate Anesthesia-Related Issues: No Anes. Related Issues
--- NOTE | 2024-05-05 11:27 | PM.DS ---
DS: Providers Provider Date of Service: 05/05/24 Date of admission: 04/29/24 17:26 Date of discharge: 05/05/24 Primary care physician: Jesse Etienne MD Consults: 04/29/24 17:29 Consult to Gastroenterology Routine Consulting Provider: Dash Payne Reason for consultation: gagging, poor po intake, large hiatal hernia 05/02/24 14:16 Consult to Infectious Diseases Routine Consulting Provider: [facility] Reason for consultation: pseudomonas uti /UA with no bacteria Has provider been notified: No DS: Diagnosis Discharge Diagnosis (1) Recurrent UTI: Status: Acute (2) Dehydration: Status: Acute DS: Summary Hospital Course Hospital Course: 83-year-old female with history of hypertension, hypothyroidism, hyperlipidemia, kyphosis presented to the ED earlier today accompanied by her daughters for evaluation of encephalopathy. Per her daughter's report, the patient was prescribed an antibiotic 2 weeks ago by her PCP empirically though no urinalysis/culture was obtained. 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 She was then seen on 04/23 in our ED for further evaluation of the confusion. Urinalysis at that time did appear consistent with UTI patient was discharged with Ceftin which she did complete per her daughters who were staying at her home at the time. Urine culture from that day unfortunately contaminated with normal shiva. She does report urinary urgency/frequency with limited output. They have also noted the patient feeling more tired, generally weak with poor p.o. intake. Has been noted to be gagging at times when swallowing but has not noted any choking. She is also reporting epigastric pain. She reports she did have an episode of dark stool but it was after taking a dose of Pepto-Bismol and has not had recurrence. The patient does not recall why she took the Pepto-Bismol. There has been no noted fevers, chills, sore throat, congestion, dysuria, nausea, vomiting, hematuria, diarrhea, hematochezia, cough, shortness of breath, lightheadedness, chest pain. On exam, the patient herself is oriented x3 but does appear forgetful, not recalling events her daughters are bringing up but is able to tell me some history. Since arrival, vital signs are stable. She has a leukocytosis of 15.4. Renal function consistent with baseline. Sodium 132, potassium 5.2. Calcium 10.8. Hepatic function within normal limits. Troponin 4.6. Lipase 67. Urinalysis with 2+ leukocytes, positive urinary sediment, negative bacteria. Stool occult blood negative. Negative for COVID-19, RSV, influenza. CT abdomen pelvis negative for acute intra-abdominal abnormality but shows ventral hernia containing fat and nonobstructed transverse colon, diverticulosis, and moderate to large sized hiatal hernia. In the ED, was given IV Levaquin, normal saline, lokelma. Hospital course Patient was admitted general medical floor and seen in consultation by Infectious Disease. After review of data, Infectious Disease felt there were no antibiotics indicated at this time. Given her presenting complaints of weakness and dysphagia GI consult was obtained. GI recommendation was barium swallow. Barium swallow markedly abnormal. (See report for details). On patient underwent an upper endoscopy. Endoscopy revealed gastritis with a duodenal ulcer and a paraesophageal hernia. Patient diet was advanced which she tolerated well. Plan is to be on omeprazole 40 b.i.d. for 3 months then 40 mg daily with GI follow up. Family will pursue workup of paraesophageal hernia. On the day of discharge she is stable and medically acceptable for same Time Attestation Discharge Coordination Time (in mins): 35 Quality: Safe Use of Opioids Does Pt have an Active Cancer Diagnosis on the Problem List?: No Quality: Stroke Does the patient have a stroke diagnosis?: No Physical Exam Vital Signs: Vital Signs: Last Vital Signs Temp 98.0 F 05/05/24 07:43 Pulse 64 05/05/24 07:43 Resp 16 05/05/24 07:43 BP 118/56 L 05/05/24 07:43 Pulse Ox 97 05/05/24 07:43 O2 Del Method Room Air 05/05/24 07:43 BMI result Body Mass Index 22.8 Const: Other: Awake alert no acute distress Resp: Other: Clear to auscultation bilaterally no rales rhonchi or wheezes Cardio: Other: No S4; positive S1-S2; no S3 murmurs rubs or gallops GI: Other: Soft nontender nondistended normoactive bowel sounds Extrem: Other: No edema bilaterally DS: Data Data Completed and Pending Pending studies at discharge: Pending at discharge 05/04/24 12:52 Surgical [PTH] Routine Labs on day of discharge: Laboratory Results - last 24 hr 04/30/24 13:02 Vitamin A 61 Vitamin B1 39 H Vitamin B2 72.4 H Nicotinic Acid <20 Nicotinamide <20 Discharge Plan Discharge Anticipated Discharge Date/Time: 05/05/24 11:18 Patient Disposition: Xfer SNF Discharge Diagnosis: Gastritis/duodenal ulcer Referrals: [facility] ([place], [place]) [Other] - 1 Week Jesse Etienne MD [Primary Care Provider] - 1 Week Discharge Medications: New methenamine hippurate 1 gram tablet 1 g PO DAILY 90 Days Qty: 90 0RF omeprazole 40 mg Capsule,Delayed Release(Dr/Ec) 40 mg PO BID@0630,1630 Qty: 60 2RF Continued losartan 50 mg tablet 50 mg PO DAILY oxybutynin chloride 10 mg tablet extended release 24hr 10 mg PO DAILY sotalol 80 mg tablet 40 mg PO BID ondansetron HCl 4 mg tablet 8 mg PO BID PRN (Reason: Nausea And Vomiting) meloxicam 7.5 mg tablet 7.5 mg PO DAILY levothyroxine 112 mcg tablet 112 mcg PO MOTUWETHFRSA multivitamin Tablet 1 tab PO DAILY levothyroxine 112 mcg tablet 224 mcg PO SWEENEY cholecalciferol (vitamin D3) [Vitamin D3] 25 mcg (1,000 unit) Capsule 25 mcg PO DAILY Discontinued omeprazole 20 mg capsule,delayed release(DR/EC) 20 mg PO BID@0630,1630 cefuroxime axetil 250 mg tablet 250 mg PO BID Qty: 14 0RF Discharge Orders: Discharge Order (Routine); Ordered 05/05/24 Ordered By: Lalo Marie Diet: Advance to usual diet Activity on Discharge: As tolerated Stand Alone Forms: Patient Portal Discharge page Print Language: Japanese Care Plan Goals: Continue all medicines as outlined Health Concerns: Omeprazole 40 mg b.i.d. x3 months then switch to daily. Follow up with GI as scheduled Plan of Treatment: As per receiving facility Assessment: See discharge summary
[2024-05-05] MEDS: Sodium Phosphate,Mono-Dibasic 133 ML ENEMA PR (12:39)
[2024-05-05 12:56] LABS: Creatinine Clr Calc Pharmacy 36.6; Estimated Glomerular Filt Rate 46
[2024-05-05] MEDS: Mineral OiL enema 133 ML ENEMA PR (13:21)
[2024-05-05] MEDS: Milk of Magnesia 30 ML ORAL.SUSP PO (14:18)
--- NOTE | 2024-05-05 14:36 | MHC.SL.SWA ---
Speech Pathologist Impression: Risk of Aspiration Due to: None Dysphasia Diet Status: Liquid Consistency and Strategies for Safe Swallow: Liquid Intake Recommendation: Thin Liquid Intake Strategies: Unrestricted Solid Food Consistency: Dietary Recommendations: Regular Additional Modifications to Solid Foods: Oral Medication Intake: Whole with Liquid Please contact the pharmacy regarding appropriate crushable or liquid drug formulations that are available whenever modified delivery is recommended. Compensatory Strategies and Precautions to be Taken for Safe Swallow: Sitting Upright (90 deg) Small Bites and Sips Supervision While Eating and Drinking for Safe Swallow: None Needed Foods to Avoid: Swallowing Recommended Treatments: Recommendation for Speech: Inpatient Speech Therapy Comment: Patient seen at breakfast this morning, having resumed regular diet pm of 05/04, after being NPO for several days for procedures. Patient initially seen 05/02 by CUSTOMS MANAGER with recommendation of Regular Diet/Thin liquids, pills whole with liquid, with mechanical elements of oral pharyngeal swallow WFL, globus sensation reported after swallow. Patient today was having breakfast of pancakes, logan, coffee, juices. Patient observed drinking thin liquids, and hard solid of logan, presenting with swallow WFL, no clinical signs of aspiration. Patient with no c/o globus or difficulty swallowing this a.m. Recommend patient continue on least restrictive diet of Regular with Thin liquids pills whole with liquid. Recommend D/C speech service at this time. Please recontact if any concerns arise. Frequency/Duration: Date Range for Service Req: Timeline to reassess: Corrections Specialist Clinican/Clinical Fellow: No Supervisory Statement: I have reviewed and agree with the student/clinical fellow's documentation: N/A Speech Language Pathologist: Sweetie Hodges M.A., CCC-CUSTOMS MANAGER
[2024-05-05 15:19] VITALS: BP 120/58; PULSE 75; RESP 18; TEMP 36.5; O2SAT 97
[2024-05-05 16:43] LABS: Vitamin B6 24.8 ng/mL (2.1-21.7)
--- NOTE | 2024-05-05 16:56 | PC.NURSE ---
Pt was able to move bowels in bathroom. Pt expected to DC in AM to short term rehab, pt and family aware.
[2024-05-05] MEDS: Enoxaparin Sodium 40 MG/0.4 ML SYRINGE SUBCUT (17:50)
[2024-05-05 23:40] VITALS: BP 115/56; PULSE 62; RESP 18; TEMP 36.3; O2SAT 96
[2024-05-06] MEDS: Levothyroxine Sodium 112 MCG TABLET PO (06:14)
[2024-05-06] MEDS: Omeprazole 40 MG CAPSULE.DR PO (06:14)
[2024-05-06] MEDS: Acetaminophen 325 MG TABLET 650 MG PO (06:15)
[2024-05-06 08:12] VITALS: BP 122/58; PULSE 62; RESP 18; TEMP 36.1; O2SAT 98
[2024-05-06] MEDS: Multivitamin TABLET 1 TAB PO (08:42)
[2024-05-06] MEDS: Sotalol HCL 80 MG TABLET 40 MG PO (08:42)
[2024-05-06] MEDS: Ascorbic Acid 500 MG TABLET PO (08:42)
[2024-05-06] MEDS: Cholecalciferol (Vitamin D3) 25 MCG TABLET PO (08:42)
[2024-05-06] MEDS: 0.9 % Sodium Chloride Flush 3 ML SYRINGE IVFLUSH (08:43)
[2024-05-06] MEDS: oxyBUTYnin chloride ER 5 MG TAB.ER.24 10 MG PO (08:46)
--- NOTE | 2024-05-06 10:17 | MHC.CM.PN ---
PT CLEARED TO DC TODAY TO [facility] FOR STR CM SPOKE TO PTS DAUGHTER, LAUREN, WHO IS AWARE OF DC PLAN AND TIME TRANSPORT BOOKED WITH [facility] FOR 1230 HOURS COMFORT PLUS FOLLOWING STR AND WILL PROVIDE SERVICES POST REHAB
--- NOTE | 2024-05-06 10:43 | PM.DS ---
DS: Providers Provider Date of Service: 05/06/24 Date of admission: 04/29/24 17:26 Primary care physician: Jesse Etienne MD Consults: 04/29/24 17:29 Consult to Gastroenterology Routine Consulting Provider: Dash Payne Reason for consultation: gagging, poor po intake, large hiatal hernia 05/02/24 14:16 Consult to Infectious Diseases Routine Consulting Provider: [facility] Reason for consultation: pseudomonas uti /UA with no bacteria Has provider been notified: No DS: Diagnosis Discharge Diagnosis (1) Recurrent UTI: Status: Acute (2) Dehydration: Status: Acute DS: Summary Hospital Course Hospital Course: 83-year-old female with history of hypertension, hypothyroidism, hyperlipidemia, kyphosis presented to the ED earlier today accompanied by her daughters for evaluation of encephalopathy. Per her daughter's report, the patient was prescribed an antibiotic 2 weeks ago by her PCP empirically though no urinalysis/culture was obtained. 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 She was then seen on 04/23 in our ED for further evaluation of the confusion. Urinalysis at that time did appear consistent with UTI patient was discharged with Ceftin which she did complete per her daughters who were staying at her home at the time. Urine culture from that day unfortunately contaminated with normal shiva. She does report urinary urgency/frequency with limited output. They have also noted the patient feeling more tired, generally weak with poor p.o. intake. Has been noted to be gagging at times when swallowing but has not noted any choking. She is also reporting epigastric pain. She reports she did have an episode of dark stool but it was after taking a dose of Pepto-Bismol and has not had recurrence. The patient does not recall why she took the Pepto-Bismol. There has been no noted fevers, chills, sore throat, congestion, dysuria, nausea, vomiting, hematuria, diarrhea, hematochezia, cough, shortness of breath, lightheadedness, chest pain. On exam, the patient herself is oriented x3 but does appear forgetful, not recalling events her daughters are bringing up but is able to tell me some history. Since arrival, vital signs are stable. She has a leukocytosis of 15.4. Renal function consistent with baseline. Sodium 132, potassium 5.2. Calcium 10.8. Hepatic function within normal limits. Troponin 4.6. Lipase 67. Urinalysis with 2+ leukocytes, positive urinary sediment, negative bacteria. Stool occult blood negative. Negative for COVID-19, RSV, influenza. CT abdomen pelvis negative for acute intra-abdominal abnormality but shows ventral hernia containing fat and nonobstructed transverse colon, diverticulosis, and moderate to large sized hiatal hernia. In the ED, was given IV Levaquin, normal saline, lokelma. Hospital course Patient was admitted general medical floor and seen in consultation by Infectious Disease. After review of data, Infectious Disease felt there were no antibiotics indicated at this time. Given her presenting complaints of weakness and dysphagia GI consult was obtained. GI recommendation was barium swallow. Barium swallow markedly abnormal. (See report for details). On patient underwent an upper endoscopy. Endoscopy revealed gastritis with a duodenal ulcer and a paraesophageal hernia. Patient diet was advanced which she tolerated well. Plan is to be on omeprazole 40 b.i.d. for 3 months then 40 mg daily with GI follow up. Family will pursue workup of paraesophageal hernia. Recommend to follow GERD precautions and take Metamucil daily to avoid constipation. On the day of discharge she is medically stable. She was noted to have soft blood pressures therefore lisinopril has been discontinued. Recommend to follow BP closely. Time Attestation Discharge Coordination Time (in mins): 38 Quality: Safe Use of Opioids Does Pt have an Active Cancer Diagnosis on the Problem List?: No Quality: Stroke Does the patient have a stroke diagnosis?: No Physical Exam Vital Signs: Vital Signs: Last Vital Signs Temp 97.0 F 05/06/24 08:12 Pulse 62 05/06/24 08:12 Resp 18 05/06/24 08:12 BP 122/58 L 05/06/24 08:12 Pulse Ox 98 05/06/24 08:12 O2 Del Method Room Air 05/06/24 08:12 BMI result Body Mass Index 22.8 Const: Other: General resting comfortably, in no acute distress. Anicteric sclera Neck no JVD. CVS regular rate rhythm, Respiratory lungs clear to auscultation, no respiratory distress, no wheeze, no rhonchi. Gastrointestinal abdomen soft, non tender, bowel sounds audible, no guarding , no rigidity. Extremities no edema. No CVA tenderness Neuro non focal , clear speech Skin no rash Psych appropriate affect DS: Data Data Completed and Pending Completed studies during hospitalization [Text1]: Pending at discharge 05/04/24 12:52 Surgical [PTH] Routine Labs on day of discharge: Laboratory Results - last 24 hr 04/30/24 05/05/24 13:02 12:13 Creatinine 1.13 Estim Creat Clear Calc 36.6 Estimated GFR 46 Vitamin B6 24.8 H Discharge Plan Discharge Anticipated Discharge Date/Time: 05/06/24 10:37 Patient Disposition: Xfer SNF Discharge Diagnosis: Gastritis/duodenal ulcer Referrals: [facility] [Other] - 1 Week [facility] [Outside] (agency will provide correction and therapy services after short term rehab) Jesse Etienne MD [Primary Care Provider] - 1 Week Discharge Medications: New methenamine hippurate 1 gram tablet 1 g PO DAILY 90 Days Qty: 90 0RF omeprazole 40 mg Capsule,Delayed Release(Dr/Ec) 40 mg PO BID@0630,1630 Qty: 60 2RF Metamucil 3.4 gram/5.4 gram powder 1 tbsp PO DAILY Qty: 660 0RF Rx Instructions: mix into at least 8 oz of water or juice before administering Continued oxybutynin chloride 10 mg tablet extended release 24hr 10 mg PO DAILY sotalol 80 mg tablet 40 mg PO BID ondansetron HCl 4 mg tablet 8 mg PO BID PRN (Reason: Nausea And Vomiting) meloxicam 7.5 mg tablet 7.5 mg PO DAILY levothyroxine 112 mcg tablet 112 mcg PO MOTUWETHFRSA multivitamin Tablet 1 tab PO DAILY levothyroxine 112 mcg tablet 224 mcg PO SWE[place]Y cholecalciferol (vitamin D3) [Vitamin D3] 25 mcg (1,000 unit) Capsule 25 mcg PO DAILY Discontinued losartan 50 mg tablet 50 mg PO DAILY omeprazole 20 mg capsule,delayed release(DR/EC) 20 mg PO BID@0630,1630 cefuroxime axetil 250 mg tablet 250 mg PO BID Qty: 14 0RF Discharge Orders: Discharge Order (Routine); Ordered 05/06/24 Ordered By: Yael Cain Diet: Advance to usual diet Activity on Discharge: As tolerated Stand Alone Forms: Patient Portal Discharge page Print Language: Iranian Care Plan Goals: Continue all medicines as outlined Health Concerns: Omeprazole 40 mg b.i.d. x3 months then switch to daily. Follow up with GI as scheduled Plan of Treatment: As per receiving facility Assessment: See discharge summary
== END 2024-05-06 12:52 | disposition skilled nursing facility (03) | DRG 391 ==
LOC: HO.ED 15:48 → HO.EDOVER 17:36 → HO.S3 19:12
PROVIDERS: Internal Medicine Gastroenterology; Physician Assistant; Physician Assistant Medical; Admitting Provider Physician Assistant; Emergency Provider Student in an Organized Health Care Education/Training Program; PCP Internal Medicine; Visit Provider Hospitalist
PROC: 0DJ08ZZ Inspection of Upper Intestinal Tract, Via Natural or Artificial Opening Endoscopic (ICD-10-PCS; CPT 43235; principal; 2024-05-04 13:30)
DX: K22.4 Dyskinesia of esophagus (principal); G93.41 Metabolic encephalopathy; Q39.8 Other congenital malformations of esophagus; E87.1 Hypo-osmolality and hyponatremia; K44.9 Diaphragmatic hernia without obstruction or gangrene; K26.9 Duodenal ulcer, unspecified as acute or chronic, without hemorrhage or perforation; E86.0 Dehydration; E87.5 Hyperkalemia; I12.9 Hypertensive chronic kidney disease with stage 1 through stage 4 chronic kidney disease, or unspecified chronic kidney disease; N18.30 Chronic kidney disease, stage 3 unspecified; E78.5 Hyperlipidemia, unspecified; E03.9 Hypothyroidism, unspecified; Z20.822 Contact with and (suspected) exposure to COVID-19; Z87.440 Personal history of urinary (tract) infections; Z87.891 Personal history of nicotine dependence; Z79.890 Hormone replacement therapy; Z79.899 Other long term (current) drug therapy
CPT/HCPCS: 0241U; 36415; 70450; 74177; 74221; 80048; 80076; 81001; 82272; 82306; 82565; 82570; 82607; 82728; 82746; 83690; 83735; 83930; 83935; 84207; 84252; 84300; 84425; 84443; 84484; 84590; 84591; 85025; 85027; 87086; 87088; 87186; 88305; 88342; 92526; 92610; 93005; 97116; 97161; 99285; C1726; J1650; J1956; J2704; Q9967

== ENCOUNTER → 2024-04-29 12:26 | Outpatient (BNV) | payer MEDICARE, SELFPAY | PROVIDERS: Admitting Provider Physician Assistant; Emergency Provider Student in an Organized Health Care Education/Training Program; PCP Internal Medicine; Visit Provider Internal Medicine Cardiovascular Disease | DX: R94.31 Abnormal electrocardiogram [ECG] [EKG] (principal) | CPT/HCPCS: 93010 ==

== ENCOUNTER 2024-04-29 17:26 | Outpatient (BNV) | payer MEDICARE, SELFPAY | END 2024-05-02 12:30 | PROVIDERS: Admitting Provider Physician Assistant; Emergency Provider Student in an Organized Health Care Education/Training Program; PCP Internal Medicine; Visit Provider Physician Assistant Surgical | DX: R13.10 Dysphagia, unspecified (principal); K21.9 Gastro-esophageal reflux disease without esophagitis | CPT/HCPCS: 74246 ==

== ENCOUNTER → 2024-04-29 17:26 | Outpatient (BNV) | payer MEDICARE, SELFPAY | PROVIDERS: Admitting Provider Physician Assistant; Emergency Provider Student in an Organized Health Care Education/Training Program; PCP Internal Medicine; Visit Provider Internal Medicine | DX: N39.0 Urinary tract infection, site not specified (principal); E86.0 Dehydration | CPT/HCPCS: 99222 ==

== ENCOUNTER → 2024-04-29 17:26 | Outpatient (BNV) | payer MEDICARE, SELFPAY | PROVIDERS: Admitting Provider Physician Assistant; Emergency Provider Student in an Organized Health Care Education/Training Program; PCP Internal Medicine; Visit Provider Physician Assistant | DX: N39.0 Urinary tract infection, site not specified (principal); E86.0 Dehydration | CPT/HCPCS: 99223; 99231; 99232; 99239 ==

== ENCOUNTER → 2024-04-29 17:26 | Outpatient (BNV) | payer MEDICARE, SELFPAY | PROVIDERS: Admitting Provider Physician Assistant; Emergency Provider Student in an Organized Health Care Education/Training Program; PCP Internal Medicine; Visit Provider Internal Medicine Gastroenterology | DX: K44.9 Diaphragmatic hernia without obstruction or gangrene (principal); K29.70 Gastritis, unspecified, without bleeding; K26.9 Duodenal ulcer, unspecified as acute or chronic, without hemorrhage or perforation; K22.4 Dyskinesia of esophagus | CPT/HCPCS: 43239; 43249; 99222; 99232 ==

== ENCOUNTER → 2024-04-29 17:26 | Outpatient (BNV) | payer MEDICARE, SELFPAY | PROVIDERS: Admitting Provider Physician Assistant; Emergency Provider Student in an Organized Health Care Education/Training Program; PCP Internal Medicine; Visit Provider Urology | DX: N39.0 Urinary tract infection, site not specified (principal) | CPT/HCPCS: 99222 ==

== ENCOUNTER 2024-06-13 15:17 | Outpatient (REF) | payer MEDICARE, SELFPAY ==
[2024-06-13 15:37] LABS: MANUAL DIFF FLAG NO
[2024-06-13 16:04] LABS: Basophils Percent Auto 0.3 % (0-2); Eosinophils Percent Auto 0.1 % (0-4); Hematocrit 35.5 % (37.0-47.0); Hemoglobin 11.4 g/dl (12.0-16.0); Imm Gran Abs Auto 0.08 X10*3/uL (0.00-0.03); Imm Gran Pct Auto 0.7 % (0.0-0.4); Lymphocytes Absolute Auto 2.1 X10*3/uL (1.2-4.9); Mean Corpuscular HGB Conc 32.1 g/dl (31.0-35.0); Mean Corpuscular Hemoglobin 30.2 pg (27.0-33.0); Mean Corpuscular Volume 94.2 fL (80.0-98.0); Mean Platelet Volume 8.4 fL (9.4-12.3); Monocytes Absolute Auto 0.8 X10*3/uL (0.1-1.2); Monocytes Percent Auto 7.7 % (2-11); Neutrophils Absolute Auto 7.8 x10*3/uL (2.0-8.3); Neutrophils Percent Auto 72.2 % (45-73); Platelet Count 363 X10*3/uL (160-400); Red Blood Count 3.77 X10*6/uL (4.20-5.50); Red Cell Distribution Width 12.3 % (11.0-16.0); White Blood Count 10.8 X10*3/uL (4.8-10.8)
[2024-06-13 16:19] LABS: Estimated Average Glucose 100 mg/dL; Hemoglobin A1c % 5.1 % (<6.0)
[2024-06-13 16:43] LABS: Alanine Aminotransferase 9 U/L (0-31); Albumin Level 3.9 g/dL (3.5-5.0); Alkaline Phosphatase 60 U/L (39-117); Anion Gap 13 (12-20); Aspartate Amino Transferase 12 U/L (5-31); Bilirubin Total 0.4 mg/dL (0.0-1.0); Blood Urea Nitrogen 27 mg/dL (9-16); Calcium 10.3 mg/dL (8.4-10.2); Carbon Dioxide 27 mmol/L (22-29); Chloride 107 mmol/L (96-108); Estimated Glomerular Filt Rate 43; Glucose Random 99 mg/dL (60-115); Iron 23 mcg/dL (30-160); Percent Iron Saturation 13 % (15-50); Potassium 4.5 mmol/L (3.3-5.1); Sodium 142 mmol/L (135-145); Total Iron Binding Capacity 183 mcg/dL (228-428); Total Protein 7.7 g/dL (6.5-8.0); Unsaturated Iron Binding 160 ug/dL
[2024-06-13 17:00] LABS: T4 Thyroxine 9.9 ug/dL (4.5-12.0); Thyroid Stimulating Hormone 0.91 uIU/mL (0.32-4.0)
== END 2024-06-13 15:18 | disposition home or self-care (01) ==
LOC: HO.LAB 15:17
PROVIDERS: PCP Internal Medicine; Visit Provider Internal Medicine
DX: I10 Essential (primary) hypertension (principal); E03.9 Hypothyroidism, unspecified; N18.9 Chronic kidney disease, unspecified; K21.9 Gastro-esophageal reflux disease without esophagitis; Z13.1 Encounter for screening for diabetes mellitus
CPT/HCPCS: 36415; 80053; 83036; 83540; 84436; 84443; 85025

== ENCOUNTER 2024-08-24 10:19 | Outpatient (REF) | payer MEDICARE, SELFPAY ==
[2024-08-24 13:08] LABS: MANUAL DIFF FLAG NO
[2024-08-24 13:16] LABS: Basophils Percent Auto 0.5 % (0-2); Hematocrit 37.7 % (37.0-47.0); Hemoglobin 11.9 g/dl (12.0-16.0); Imm Gran Abs Auto 0.01 X10*3/uL (0.00-0.03); Imm Gran Pct Auto 0.2 % (0.0-0.4); Lymphocytes Absolute Auto 2.1 X10*3/uL (1.2-4.9); Lymphocytes Percent Auto 38.2 % (20-40); Mean Corpuscular HGB Conc 31.6 g/dl (31.0-35.0); Mean Corpuscular Hemoglobin 30.1 pg (27.0-33.0); Mean Corpuscular Volume 95.2 fL (80.0-98.0); Mean Platelet Volume 9.5 fL (9.4-12.3); Monocytes Absolute Auto 0.5 X10*3/uL (0.1-1.2); Monocytes Percent Auto 9.4 % (2-11); Neutrophils Absolute Auto 2.9 x10*3/uL (2.0-8.3); Neutrophils Percent Auto 51.7 % (45-73); Platelet Count 238 X10*3/uL (160-400); Red Blood Count 3.96 X10*6/uL (4.20-5.50); Red Cell Distribution Width 12.8 % (11.0-16.0); White Blood Count 5.6 X10*3/uL (4.8-10.8)
[2024-08-24 13:24] LABS: Appearance Urine Clear; Color Urine Dark Yellow; Glucose Urine UA Negative (Negative); Leukocyte Esterase Urine Small (1+) (Negative); Nitrite Urine Negative (Negative); PH 5.5 (5.0-9.0); Specific Gravity - Urine >= 1.030 (1.005-1.025); UMIC TRIGGER UACC YES; Urine Blood Negative (Negative); Urine Ketones Negative (Negative); Urine Protein Negative (Neg-Trace)
[2024-08-24 13:31] LABS: Estimated Average Glucose 91 mg/dL; Hemoglobin A1C 90.5918 umol/L; Hemoglobin A1c % 4.8 % (<6.0); Total Hemoglobin (HGBA1C) 3092.5501 umol/L
[2024-08-24 13:50] LABS: Alanine Aminotransferase 11 U/L (0-31); Albumin Level 4.1 g/dL (3.5-5.0); Alkaline Phosphatase 55 U/L (39-117); Anion Gap 8 (12-20); Aspartate Amino Transferase 22 U/L (5-31); Bilirubin Total 0.5 mg/dL (0.0-1.0); Blood Urea Nitrogen 29 mg/dL (9-16); Calcium 10.6 mg/dL (8.4-10.2); Carbon Dioxide 28 mmol/L (22-29); Chloride 109 mmol/L (96-108); Cholesterol 174 mg/dL (<200); Estimated Glomerular Filt Rate 50; Free T4 (Free Thyroxine) 1.17 ng/dL (0.71-1.85); Glucose Fasting 99 mg/dL (60-99); HDL Cholesterol 48 mg/dL (>40); LDL Cholesterol Calculated 101 mg/dL (<100); Potassium 5.1 mmol/L (3.3-5.1); Sodium 140 mmol/L (135-145); Thyroid Stimulating Hormone 6.17 uIU/mL (0.32-4.0); Total Protein 7.7 g/dL (6.5-8.0); Triglycerides 125 mg/dL (<150)
[2024-08-24 13:54] LABS: Bacteria Urine None Seen (None Seen); Hyaline Casts Urine 0-2 /LPF (0-2); RBC Urine 0-2 /HPF (0-2); Squamous Epithelial Cell Urine 0-2 /HPF (0-2); UACC Culture Trigger YES; WBC Urine 0-5 /HPF (0-5)
[2024-08-24 13:59] LABS: Vitamin B12 295 pg/mL (200-900)
== END 2024-08-24 10:20 | disposition home or self-care (01) ==
LOC: HO.HMGCLDS 10:19
PROVIDERS: PCP Internal Medicine; Visit Provider Internal Medicine
DX: I10 Essential (primary) hypertension (principal); E03.9 Hypothyroidism, unspecified; N18.9 Chronic kidney disease, unspecified; Z13.1 Encounter for screening for diabetes mellitus
CPT/HCPCS: 36415; 80053; 80061; 81001; 81003; 82607; 83036; 84439; 84443; 85025; 87086

== ENCOUNTER 2025-02-09 13:13 | Outpatient (AMB) | payer MEDICARE, SELFPAY ==
--- NOTE | 2025-02-09 13:30 | A.OFFPC_ITS ---
Vital Signs 02/09/25 13:32 Weight 155 lb BP 129/83 Respiration 14 Pulse 66 Pulse Source Pulse Oximeter Temp 97.6 F Temp Source Temporal Artery Scan Pulse Oximetry (%) 96 Oxygen Delivery Method Room Air Intake Visit Reasons: Routine [employer] Required: No Accompanied by: Daughter Allergies codeine [Codeine] Allergy (Mild, Verified 02/09/25 13:30) RASH/ITCH penicillin G [Penicillin G] Allergy (Mild, Verified 02/09/25 13:30) RASH/ITCH SWELLING THROAT CLOSES BANDAIDS Allergy (Mild, Uncoded 02/09/25 13:30) REDDNESS adhesive tape Allergy (Unknown, Uncoded 02/09/25 13:30) Rash codeine Allergy (Unknown, Uncoded 02/09/25 13:30) Rash ENVIROMENTAL Allergy (Unknown, Uncoded 02/09/25 13:30) UNKNOWN penicillin Allergy (Unknown, Uncoded 02/09/25 13:30) Rash Tobacco use date assessed: 02/09/25 Fall risk assessment: No Falls in past year Last assessed Fall Risk: 02/09/25 Dental Screening Dental Screen Date: 02/09/25 Did you have a dental visit in the last 12 months?: No Did you have a dental problem in the last 6 months where you did not have access to dental care?: No HPI HPI Comments History of Present Illness Details The patient is a 83 year old female with a past medical history of htn, hyperlipidemia, hypothyroid, GERD, OAB, prediabetes presenting for follow up. Last seen by pcp in July for annual Hypothyroid-on levothyroxine Developed left foot drop in rehab following hospitalization. History of low back pain CV: on sotalol ROS CONSTITUTIONAL: Denies weight loss, fever and chills. HEENT: Denies changes in vision and hearing. RESPIRATORY: Denies SOB and cough. CV: Denies palpitations and CP GI: Denies abdominal pain, nausea, vomiting and diarrhea. : Denies dysuria and urinary frequency. MSK: Denies new myalgia and joint pain. SKIN: Denies rash and pruritus. NEUROLOGICAL: Denies headache PSYCHIATRIC: Denies recent changes in mood. PHYSICAL EXAM: GENERAL: Alert and oriented x 3. NAD EYES: EOMI. Anicteric. HENT: Moist mucous membranes. No scleral icterus. No cervical lymphadenopathy. LUNGS: Clear to auscultation bilaterally. CARDIOVASCULAR: Regular rate and rhythm. No murmur. No JVD. ABDOMEN: Soft, non-tender +bs EXTREMITIES: No edema. Non-tender. SKIN: No rashes or lesions. Warm. NEUROLOGIC: left foot drop PSYCHIATRIC: Cooperative. Appropriate mood and affect [facility] Medical History Paraesophageal hernia Recurrent UTI Kyphosis Hypothyroidism Hypertension Family History Mother No problems noted. Father No problems noted. Social History Household Members: None Housing: House Do you presently have visiting nurse or other home services: No Alcohol intake: current Alcohol intake frequency: does not drink Patient Tobacco Use Status: Former Tobacco user Tobacco use type: Cigarette e-Cigarette/Vaping Use: Never Used Second Hand Smoke Exposure: No Advance Directives Date on File: 06/26/20 service: No Current occupational status: retired Cognitive needs: Yes (walker) Hearing needs: No Vision needs: Yes (rx glasses) Questionnaire PHQ-9 Over the last 2 weeks, how often have you been bothered by any of the following problems? 1. Little interest or pleasure in doing things: not at all 2. Feeling down, depressed, or hopeless: not at all 3. Trouble falling or staying asleep, or sleeping too much: not at all 4. Feeling tired or having little energy: not at all 5. Poor appetite or overeating: not at all 6. Feeling bad about yourself - or that you are a failure or have let yourself or your family down: not at all 7. Trouble concentrating on things, such as reading the newspaper or watching television: not at all 8. Moving or speaking so slowly that other people could have noticed. Or the opposite - being so fidgety or restless that you have been moving around a lot more than usual: not at all 9. Thoughts that you would be better off or of hurting yourself in some way: not at all Total score: 0 Depression Screening Interpretation: Negative Depression Screening Done: Yes 82189 - PHQ-9 Billing: Yes Source: Developed by Drs. Brenden Padron, Evon Yuan, Rick Swartz and colleagues, with an educational miguel from [employer]. Thrive Questionnaire Date Thrive assessed: 02/09/25 I am a: Patient What is your living situation today?: I have a steady place to live Within the past 12 months, did the food you bought not last and you didn't have the money to get more?: Never true Within the past 12 months, did you worry whether your food would run out before you got money to buy more?: Never true Do you have trouble paying for medicines?: No Do you have trouble getting transportation to medical appointments?: No Do you have trouble paying your heating and electricity bill?: No Do you have trouble taking care of your child, family member or friend?: No Do you have trouble with day-to-day activities such as bathing, preparing meals, shopping, managing finances, etc.?: No Are you currently unemployed and looking for a job?: No Are you interested in more education?: No Please select the resources that you would like help with: None THRIVE Score: 0 AUDIT C Alcohol Use Questionnaire (AUDIT-C) 1. How often do you have a drink containing alcohol?: Never 3. How often do you have six or more drinks on one occasion?: Never Total Score: 0 BRUCE-7 AMB Questionnaire BRUCE-7 Date BRUCE - 7 assessed: 02/09/25 Feeling nervous, anxious, or on edge: 0 = Not at all Not being able to stop or control worryin = Not at all Worrying too much about different things: 0 = Not at all Trouble relaxin = Not at all Being so restless that it is hard to sit still: 0 = Not at all Becoming easily annoyed or irritable: 0 = Not at all Feeling afraid as if something awful might happen: 0 = Not at all Total BRUCE-7 score (0-4 normal; 5-9 mild; 10-14 moderate; 15-21 severe): 0 Source: Developed by Drs. Brenden aPdron, Evon Yuan, Rick Swartz and colleagues, with an educational miguel from [employer]. Physical exam (Primary Care) Vital Signs: Last Vital Signs Temp 97.6 F 02/09/25 13:32 Pulse 66 02/09/25 13:32 Resp 14 02/09/25 13:32 BP 129/83 02/09/25 13:32 Pulse Ox 96 02/09/25 13:32 Oxygen Delivery Method Room Air 02/09/25 13:32 Tobacco/Smoking Status: Tobacco use Status Tobacco use date assessed 02/09/25 02/09/25 13:44 Patient Tobacco Use Status Former Tobacco user 02/09/25 13:44 Tobacco use type Cigarette 02/09/25 13:44 e-Cigarette/Vaping Use Never Used 02/09/25 13:44 PHQ-9: PHQ-9 Score PHQ-9: Total score 0 02/12/25 11:02 Depression Screening Interpretation: Negative Thrive Assessment: Date of Thrive Assessment Date Thrive assessed 02/09/25 02/09/25 13:44 Coding Level of Care Code New Pt Level 4 (87034) Diagnoses Left foot drop M21.372 Primary hypertension I10 Hypertension type: primary hypertension Memory loss R41.3 Paraesophageal hernia K44.9 Additional Codes PHQ-9 - 64217 - PHQ-9 Billing: Yes ([id number]) Assessment & Plan Assessment & Plan (1) Left foot drop: Code(s): M21.372 - Foot drop, left foot Category: Medical (2) Hypertension: Code(s): I10 - Essential (primary) hypertension Category: Medical Qualifiers: Hypertension type: primary hypertension Qualified Code(s): I10 - Essential (primary) hypertension (3) Memory loss: Code(s): R41.3 - Other amnesia Category: Medical (4) Paraesophageal hernia: Code(s): K44.9 - Diaphragmatic hernia without obstruction or gangrene Category: Medical Plan 84 year old to establish care past medical, surgical, social reviewed left foot drop. xr lumbar spine. referral to neurology Labs ordered Orders: Orders Complete Blood Count Auto Diff 02/09/25 E03.9 - Hypothyroidism, unspecified, I10 - Essential (primary) hypertension, K44.9 - Diaphragmatic hernia without obstruction or gangrene, N39.0 - Urinary tract infection, site not specified Comprehensive Met. Panel 02/09/25 E03.9 - Hypothyroidism, unspecified, I10 - Essential (primary) hypertension, K44.9 - Diaphragmatic hernia without obstruction or gangrene, N39.0 - Urinary tract infection, site not specified UA CC w/rflx Micro + Cult 02/09/25 N39.0 - Urinary tract infection, site not specified XR lumbar spine 2-3V 02/09/25 M21.372 - Foot drop, left foot TSH reflex Free T4 02/09/25 E03.9 - Hypothyroidism, unspecified, I10 - Essential (primary) hypertension, K44.9 - Diaphragmatic hernia without obstruction or gangrene, N39.0 - Urinary tract infection, site not specified IRON PROFILE 02/09/25 E03.9 - Hypothyroidism, unspecified, I10 - Essential (primary) hypertension, K44.9 - Diaphragmatic hernia without obstruction or gangrene, N39.0 - Urinary tract infection, site not specified Vitamin B12 and Folate 02/09/25 R41.3 - Other amnesia Vitamin D 25-OH (D2 and D3) 02/09/25 R41.3 - Other amnesia Referrals Neurology Referral M21.372 - Foot drop, left foot Medications: Changed From omeprazole 40 mg PO BID@0630,1630 60 caps 2RF To omeprazole 40 mg PO DAILY 90 caps 3RF
[2025-02-09 13:32] VITALS: BP 129/83; PULSE 66; RESP 14; TEMP 36.4; O2SAT 96
== END 2025-02-09 14:18 | disposition home or self-care (01) ==
LOC: HO.HMCHD 13:13
PROVIDERS: PCP Internal Medicine; Visit Provider Internal Medicine
DX: M21.372 Foot drop, left foot (principal); I10 Essential (primary) hypertension; R41.3 Other amnesia; K44.9 Diaphragmatic hernia without obstruction or gangrene

== ENCOUNTER → 2025-02-09 13:13 | Outpatient (BNVA) | payer MEDICARE, SELFPAY | PROVIDERS: PCP Internal Medicine; Visit Provider Internal Medicine | DX: I10 Essential (primary) hypertension (principal); E78.5 Hyperlipidemia, unspecified; E03.9 Hypothyroidism, unspecified; K21.9 Gastro-esophageal reflux disease without esophagitis; N32.81 Overactive bladder; R73.03 Prediabetes; M21.372 Foot drop, left foot; R41.3 Other amnesia; K44.9 Diaphragmatic hernia without obstruction or gangrene; N39.0 Urinary tract infection, site not specified | CPT/HCPCS: 96127; 99202 ==

== ENCOUNTER 2025-03-08 12:13 | Outpatient (REF) | payer MEDICARE, SELFPAY ==
--- NOTE | ~2025-03-08 | XR_ITS ---
EXAMINATION: XR LUMBOSACRAL SPINE CLINICAL INFORMATION: M21.372 - Foot drop, left foot COMPARISON: None available. TECHNIQUE: Three views of the lumbosacral spine. FINDINGS: Cholecystectomy clips are present. Vascular opacifications are present in the splenic artery and abdominal aorta. Surgical clip projects over the right lower hemipelvis. Moderate stippled and amorphous calcific density projects over the right hip joint. There is moderate dextroscoliosis measuring 44 degrees. Severe multilevel degenerative disc disease is present with disc space narrowing and endplate osteophytes. There is facet sclerosis and osteophytes as well. There is grade 1 retrolisthesis at L4-5. XR/XR lumbar spine 2-3V IMPRESSION: Moderate dextroscoliosis and severe degenerative disc disease and facet osteoarthritis. 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 Electronically signed by: Mau Serra MD 03/08/2025 01:58 PM EDT
[2025-03-08 12:32] LABS: MANUAL DIFF FLAG NO
[2025-03-08 13:40] LABS: Basophils Percent Auto 0.6 % (0-2); Eosinophils Percent Auto 0.2 % (0-4); Hematocrit 39.5 % (37.0-47.0); Hemoglobin 12.8 g/dl (12.0-16.0); Imm Gran Abs Auto 0.04 X10*3/uL (0.00-0.03); Imm Gran Pct Auto 0.6 % (0.0-0.4); Lymphocytes Absolute Auto 2.1 X10*3/uL (1.2-4.9); Lymphocytes Percent Auto 32.7 % (20-40); Mean Corpuscular HGB Conc 32.4 g/dl (31.0-35.0); Mean Corpuscular Hemoglobin 30.6 pg (27.0-33.0); Mean Corpuscular Volume 94.5 fL (80.0-98.0); Monocytes Absolute Auto 0.6 X10*3/uL (0.1-1.2); Monocytes Percent Auto 9.8 % (2-11); Neutrophils Absolute Auto 3.6 x10*3/uL (2.0-8.3); Neutrophils Percent Auto 56.1 % (45-73); Platelet Count 247 X10*3/uL (160-400); Red Blood Count 4.18 X10*6/uL (4.20-5.50); Red Cell Distribution Width 13.1 % (11.0-16.0); White Blood Count 6.4 X10*3/uL (4.8-10.8)
[2025-03-08 13:53] LABS: Appearance Urine Clear; Color Urine Dark Yellow; Glucose Urine UA Negative (Negative); Leukocyte Esterase Urine Trace (Negative); Nitrite Urine Negative (Negative); PH 5.5 (5.0-9.0); Specific Gravity - Urine >= 1.030 (1.005-1.025); UMIC TRIGGER UACC YES; Urine Blood Negative (Negative); Urine Ketones Trace mg/dL (Negative); Urine Protein Trace mg/dL (Neg-Trace)
[2025-03-08 13:55] LABS: Bacteria Urine None Seen (None Seen); Hyaline Casts Urine 0-2 /LPF (0-2); RBC Urine 0-2 /HPF (0-2); WBC Urine 0-5 /HPF (0-5)
[2025-03-08 14:20] LABS: Alanine Aminotransferase 13 U/L (0-31); Albumin Level 4.4 g/dL (3.5-5.0); Alkaline Phosphatase 62 U/L (39-117); Anion Gap 10 (12-20); Aspartate Amino Transferase 19 U/L (5-31); Bilirubin Total 0.4 mg/dL (0.0-1.0); Blood Urea Nitrogen 30 mg/dL (9-16); Carbon Dioxide 28 mmol/L (22-29); Chloride 107 mmol/L (96-108); Estimated Glomerular Filt Rate 42; Glucose Random 78 mg/dL (60-115); Iron 86 mcg/dL (30-160); Percent Iron Saturation 34 % (15-50); Potassium 4.9 mmol/L (3.3-5.1); Sodium 140 mmol/L (135-145); Total Iron Binding Capacity 256 mcg/dL (228-428); Total Protein 7.9 g/dL (6.5-8.0); Unsaturated Iron Binding 170 ug/dL
[2025-03-08 14:29] LABS: TSH reflex Free T4 24.65 uIU/mL (0.32-4.0)
[2025-03-08 14:38] LABS: Folate 17.1 ng/mL (> or = 4.0); Vitamin B12 357 pg/mL (200-900)
[2025-03-08 15:59] LABS: Free T4 (Free Thyroxine) 0.85 ng/dL (0.71-1.85)
[2025-03-12 13:38] LABS: Vitamin D 25-OH, D2 <4 ng/mL; Vitamin D 25-OH, D3 33 ng/mL; Vitamin D 25-OH, Total 33 ng/mL (30-100)
== END 2025-03-08 12:14 | disposition home or self-care (01) ==
LOC: HO.LAB 12:13
PROVIDERS: PCP Internal Medicine; Visit Provider Internal Medicine
DX: I10 Essential (primary) hypertension (principal); K44.9 Diaphragmatic hernia without obstruction or gangrene; N39.0 Urinary tract infection, site not specified; E03.9 Hypothyroidism, unspecified; R41.3 Other amnesia; M21.372 Foot drop, left foot
CPT/HCPCS: 36415; 72100; 80053; 81001; 82306; 82607; 82746; 83540; 84439; 84443; 85025

== ENCOUNTER → 2025-03-08 12:38 | Outpatient (BNV) | payer MEDICARE, SELFPAY | PROVIDERS: PCP Internal Medicine; Visit Provider Radiology Diagnostic Radiology | DX: M41.86 Other forms of scoliosis, lumbar region (principal); M51.369 Other intervertebral disc degeneration, lumbar region without mention of lumbar back pain or lower extremity pain; M47.816 Spondylosis without myelopathy or radiculopathy, lumbar region | CPT/HCPCS: 72100 ==

== ENCOUNTER 2025-06-05 10:11 | Outpatient (AMB) | payer MEDICARE, SELFPAY ==
--- NOTE | 2025-06-05 10:18 | MHC.OFFVIS ---
Vital Signs 06/05/25 10:23 Height 5 ft 7 in Weight 163 lb BMI 25.5 BP 116/74 Blood Pressure Location Rt brachial Position Sitting Pulse 65 Pulse Source Pulse Oximeter Pulse Oximetry (%) 97 Oxygen Delivery Method Room Air Intake Visit Reasons: ENP - Foot drop Intake Note: Left foot drop Trackwalker Required: No Accompanied by: Daughter Allergies codeine (Codeine) Allergy (Mild, Verified 06/05/25 10:18) RASH/ITCH penicillin G (Penicillin G) Allergy (Mild, Verified 06/05/25 10:18) RASH/ITCH SWELLING THROAT CLOSES BANDAIDS Allergy (Mild, Uncoded 02/09/25 13:30) REDDNESS adhesive tape Allergy (Unknown, Uncoded 02/09/25 13:30) Rash codeine Allergy (Unknown, Uncoded 02/09/25 13:30) Rash ENVIROMENTAL Allergy (Unknown, Uncoded 02/09/25 13:30) UNKNOWN penicillin Allergy (Unknown, Uncoded 02/09/25 13:30) Rash HPI Comments Details: 84y/o Right handed female comes for evaluation of left foot drop. she was in [facility] following UTI, sepsis last year Apr - May 2024. when she went to PT she was found to have left foot drop.she had EMG - I do not have the report. She was given a AFO and was referred to PT. she is doing better now. No recent falls. she still uses AFO and uses a walker. [facility] Medical History Paraesophageal hernia Recurrent UTI Kyphosis Hypothyroidism Hypertension Family History Mother No problems noted. Father No problems noted. Social History Household Members: None Housing: House Do you presently have visiting nurse or other home services: No Alcohol intake: current Alcohol intake frequency: does not drink Patient Tobacco Use Status: Former Tobacco user Tobacco use type: Cigarette e-Cigarette/Vaping Use: Never Used Second Hand Smoke Exposure: No Advance Directives Date on File: 06/26/20 service: No Current occupational status: retired Cognitive needs: Yes (walker) Hearing needs: No Vision needs: Yes (rx glasses) Physical Exam Vital Signs: Last Vital Signs Pulse 65 06/05/25 10:23 BP 116/74 06/05/25 10:23 Pulse Ox 97 06/05/25 10:23 Oxygen Delivery Method Room Air 06/05/25 10:23 BMI result Body Mass Index 25.5 Const General: cooperative, healthy appearing, comfortable and no acute distress Nutritional Appearance: average body habitus Orientation/consciousness: patient oriented x3 Eyes Pupils: Equal, round and reactive pupils present Neuro Other: left foot - mild left foot weakness - dorsiflexion Gait - slow stooped , khyphosis , small steps General: patient oriented x3, gait normal, tone normal and moves all extremities Cranial nerves: Yes Equal, round and reactive pupils present, Yes Bilaterally intact EOM present, Yes Nystagmus not present, Yes Normal facial strength present, Yes Midline tongue present, Yes Symmetric palate elevation present and Yes Ability to bilaterally elevate shoulders present Cognition (Neuro): normal cognition Gait exam (Neuro): Antalgic gait present Motor exam (neuro): 5/5 motor strength present throughout and Normal motor muscle tone present throughout Deep tendon reflexes (DTR's): Right triceps reflex intensity grade: 1+, Left triceps reflex intensity grade: 1+, Rt Biceps (C5, C6): 1+, Left biceps reflex intensity grade: 1+, Right brachioradialis reflex intensity grade: 1+, Left brachioradialis reflex intensity grade: 1+, Right patellar reflex intensity grade: 1+ and Left patellar reflex intensity grade: 1+ Coordination: [id number] test normal Assessment & Plan Assessment & Plan (1) Left foot drop: Comment: likeley peroneal nerve injury -resolving Code(s): M21.372 - Foot drop, left foot Category: Medical Plan will review EMG from 05/2024 [facility]_ home therapy suggested to use walker consistently Orders: [facility]errals [facility] Referral M21.372 - Foot drop, left foot Coding Level of Care Code New Pt Level 4 (22641) Complex EM visit Add On G2211 Diagnoses Left foot drop M21.372
[2025-06-05 10:23] VITALS: BP 116/74; PULSE 65; O2SAT 97; BMI 25.5
== END 2025-06-05 11:03 | disposition home or self-care (01) ==
LOC: HO.HSMS 10:11
PROVIDERS: PCP Internal Medicine; Visit Provider Psychiatry & Neurology Neurology
DX: M21.372 Foot drop, left foot (principal)
CPT/HCPCS: 99204; G2211

== ENCOUNTER → 2025-06-05 10:11 | Outpatient (BNVA) | payer MEDICARE, SELFPAY | PROVIDERS: PCP Internal Medicine; Visit Provider Psychiatry & Neurology Neurology | DX: M21.372 Foot drop, left foot (principal) | CPT/HCPCS: 99202 ==

== ENCOUNTER 2025-06-12 13:31 | Outpatient (REF) | payer MEDICARE, SELFPAY ==
[2025-06-12 15:31] LABS: Appearance Urine Clear; Glucose Urine UA Negative (Negative); PH 5.5 (5.0-9.0); Specific Gravity - Urine 1.020 (1.005-1.025); UMIC TRIGGER UACC YES
[2025-06-12 15:37] LABS: UACC Culture Trigger YES
[2025-06-12 17:23] LABS: Free T4 (Free Thyroxine) 0.86 ng/dL (0.71-1.85)
== END 2025-06-12 13:32 | disposition home or self-care (01) ==
LOC: HO.LAB 13:31
PROVIDERS: Internal Medicine; PCP Student in an Organized Health Care Education/Training Program; Visit Provider Student in an Organized Health Care Education/Training Program
DX: E03.8 Other specified hypothyroidism (principal); I10 Essential (primary) hypertension; N39.0 Urinary tract infection, site not specified; K21.9 Gastro-esophageal reflux disease without esophagitis; R41.3 Other amnesia; N32.81 Overactive bladder; M21.372 Foot drop, left foot; Z79.890 Hormone replacement therapy; Z79.899 Other long term (current) drug therapy
CPT/HCPCS: 36415; 81001; 84439; 84443; 87086; 99212

== ENCOUNTER 2025-06-12 13:31 | Outpatient (AMB) | payer MEDICARE, SELFPAY ==
--- NOTE | 2025-06-12 13:38 | MHC.PC.OV ---
Vital Signs 06/12/25 13:47 Height 5 ft 7 in Weight 165 lb BMI 25.8 BMI Reason not done Patient refused/unable BP 142/72 H Blood Pressure Location Rt brachial Position Sitting Respiration 18 Pulse 74 Pulse Source Pulse Oximeter Temp 97.8 F Temp Source Temporal Artery Scan Pulse Oximetry (%) 97 Oxygen Delivery Method Room Air Intake Visit Reasons: Routine Health Insurance Agent Required: No Accompanied by: Daughter-Corry Allergies codeine (Codeine) Allergy (Mild, Verified 06/12/25 13:39) RASH/ITCH penicillin G (Penicillin G) Allergy (Mild, Verified 06/12/25 13:39) RASH/ITCH SWELLING THROAT CLOSES vibegron (From Gemtesa) Adverse Reaction (Intermediate, Verified 06/12/25 13:46) Confusion BANDAIDS Allergy (Mild, Uncoded 02/09/25 13:30) REDDNESS adhesive tape Allergy (Unknown, Uncoded 02/09/25 13:30) Rash codeine Allergy (Unknown, Uncoded 02/09/25 13:30) Rash ENVIROMENTAL Allergy (Unknown, Uncoded 02/09/25 13:30) UNKNOWN penicillin Allergy (Unknown, Uncoded 02/09/25 13:30) Rash Medication List - Last Reconciled 06/12/25 by Emre Brown MD celecoxib 200 mg PO DAILY diphenhydramine-acetaminophen 25-500 mg (Tylenol PM Extra Strength) 1 tab PO BEDTIME PRN levothyroxine (Synthroid) 112 mcg PO DAILY losartan 50 mg PO DAILY methenamine hippurate 1 g PO DAILY 90 days multivitamin 1 tab PO DAILY omeprazole 40 mg PO DAILY sotalol 40 mg PO BID Tobacco use date assessed: 02/09/25 Fall risk assessment: No Falls in past year Last assessed Fall Risk: 06/12/25 Dental Screening Dental Screen Date: 02/09/25 Did you have a dental visit in the last 12 months?: Yes Did you have a dental problem in the last 6 months where you did not have access to dental care?: No Was dental information given to patient?: Patient has dentist HPI HPI Comments History of Present Illness Details The patient is an 84-year-old female presenting with medication management needs for insomnia and an overactive bladder. The patient has been taking Tylenol PM for several years to assist with sleep and pain management. The active ingredient, diphenhydramine, is of concern due to potential side effects in the elderly, including confusion, dizziness, and increased fall risk. The patient is also managing an overactive bladder with oxybutynin and has a history of recurrent urinary tract infections. She experiences urgency and incontinence, leading to anxiety about bladder control. In terms of insomnia, the patient finds herself waking up during the night to urinate, which disrupts her sleep. At night, she sometimes takes a long time to fall back asleep after these awakenings. The insomnia has been ongoing for years and has become a routine reliance on diphenhydramine. Additionally, the patient has been diagnosed with hypothyroidism and takes levothyroxine. Her symptoms suggest possible thyroid under-treatment, contributing to memory issues. She has had prior adjustments to her Synthroid but has maintained a regimen of 112 mcg according to home lists, though labs suggest suboptimal management. The patient has a history of an untreated urinary tract infection that eventually required specialist consultation. She also reports enduring anxiety due to her overactive bladder and associated symptoms. Her medical history includes hypertension and a recent change in blood pressure management, noted as possibly anxiety-related during today's consultation. She has a history of gastroesophageal reflux disease treated with omeprazole, and she dennise with foot drop developed during a past rehabilitation stay, which affects her ambulatory safety. Other concerns include a history of two mild hernias that were identified during care for her and do not currently cause discomfort. Medical History: - Insomnia with long-term diphenhydramine use - Overactive bladder - Hypothyroidism - Hypertension - Recurrent urinary tract infections - Gastroesophageal reflux disease - Foot drop - Hernia (no surgery, mild) - Anxiety Medications: - Tylenol PM (diphenhydramine and acetaminophen) for sleep and pain - Levothyroxine 112 mcg daily for hypothyroidism - Celecoxib for joint pain - Losartan 50 mg daily for hypertension - Sotalol 40 mg twice daily for heart disease - Omeprazole 40 mg daily for acid reflux - Methenamine hippurate for urinary tract infection prophylaxis - Vibogran 75 mg for overactive bladder Family History: - Cancer (mother) Social: - Lives alone but has support from family - Uses a walker for ambulation - History of caregiving for her - Anxiety when routines are disrupted - Concerns regarding independence and fall risk - Nutritional intake supplemented by Ensure due to reduced appetite after illness [facility] Medical History (Updated 06/12/25 @ 14:35 by Emre Brown MD) Overactive bladder GERD (gastroesophageal reflux disease) Paraesophageal hernia Recurrent UTI Kyphosis Hypothyroidism Hypertension Family History Mother No problems noted. Father No problems noted. Social History Household Members: None Housing: House Do you presently have visiting nurse or other home services: No Alcohol intake: current Alcohol intake frequency: does not drink Patient Tobacco Use Status: Former Tobacco user Tobacco use type: Cigarette Years Smoked: 8 years- quit 55 years ago e-Cigarette/Vaping Use: Never Used Second Hand Smoke Exposure: No Advance Directives Date on File: 06/26/20 service: No Current occupational status: retired Cognitive needs: Yes (walker) Hearing needs: No Vision needs: Yes (rx glasses) Questionnaire Thrive Questionnaire Date Thrive assessed: 02/09/25 AUDIT C Alcohol Use Questionnaire (AUDIT-C) 1. How often do you have a drink containing alcohol?: Never 3. How often do you have six or more drinks on one occasion?: Never Total Score: 0 BRUCE-7 AMB Questionnaire BRUCE-7 Date BRUCE - 7 assessed: 02/09/25 Source: Developed by Drs. Brenden Padron, Evon Yuan, Rick Swartz and colleagues, with an educational miguel from [employer]. Review of Systems Const Details: - Constitutional: Denies weight loss but reports using loose clothes. - Neurological: Reports occasional confusion. - HEENT: Denies vision changes or hearing difficulties. - Cardiovascular: Reports history of hypertension and heart disease. - Respiratory: Denies shortness of breath; uses walker for mobility. - Gastrointestinal: Reports gastroesophageal reflux disease. - Genitourinary: Reports overactive bladder with incontinence and urinary tract infections. - Musculoskeletal: Reports foot drop. - Psychiatric: Reports anxiety. - Endocrine: Reports history of hypothyroidism. All systems reviewed & are unremarkable except as reviewed in HPI and above Physical exam (Primary Care) Vital Signs: Last Vital Signs Temp 97.8 F 06/12/25 13:47 Pulse 74 06/12/25 13:47 Resp 18 06/12/25 13:47 BP 142/72 H 06/12/25 13:47 Pulse Ox 97 06/12/25 13:47 Oxygen Delivery Method Room Air 06/12/25 13:47 BMI result Body Mass Index 25.8 Tobacco/Smoking Status: Tobacco use Status Tobacco use date assessed 02/09/25 06/12/25 13:39 Patient Tobacco Use Status Former Tobacco user 06/12/25 13:39 Tobacco use type Cigarette 06/12/25 13:39 e-Cigarette/Vaping Use Never Used 06/12/25 13:39 Thrive Assessment: Date of Thrive Assessment Date Thrive assessed 02/09/25 06/12/25 13:39 Advance Care Planning discussion: Exists, not on file Date of discussion: 06/12/25 Who was present: Primo Pham Forms completed: Health Care Proxy (Available with family, to bring it in at next visit) Time spent: 1-15 minutes, not on file Actual minutes spent: 6 Const Other: General: +Alert and oriented, Well nourished, No acute distress. Eye: Pupils are equal, round and reactive to light, Intact accommodation, Extraocular movements are intact, Normal conjunctiva, Vision unchanged. HENT: Normocephalic, Atraumatic, Tympanic membranes are clear, Normal hearing, Oral mucosa is moist, No pharyngeal erythema, Ear canals patent. Respiratory: Lungs CTA bilaterally, No wheeze, Respirations are non-labored. Cardiovascular: Regular rate, Regular rhythm, S1 auscultated, S2 auscultated, No murmur, Good pulses equal in all extremities, Normal peripheral perfusion, No edema. Gastrointestinal: Soft, Non-tender, Non-distended, Normal bowel sounds, No organomegaly. Musculoskeletal: Normal range of motion, Normal strength, No tenderness, No swelling, No deformity, Normal gait. Integumentary: Warm, Dry, [place], Intact. Neurologic: Alert, Oriented, Normal sensory, Normal motor function, No focal defects, Cranial Nerves II-XII are grossly intact, Normal deep tendon reflexes. Psychiatric: Cooperative, Appropriate mood & affect, Normal judgment. Coding Level of Care Code Est Pt Level 4 (68962) Complex EM visit Add On G2211 Diagnoses Other specified hypothyroidism E03.8 Hypothyroidism type: other Primary hypertension I10 Hypertension type: primary hypertension Recurrent UTI N39.0 Gastroesophageal reflux disease without esophagitis K21.9 Esophagitis presence: without esophagitis Memory loss R41.3 Overactive bladder N32.81 Left foot drop M21.372 Additional Codes Vital Signs *Quality* - Advance Care Planning discussion: Exists, not on file ([id number]) Vital Signs *Quality* - Time spent: 1-15 minutes, not on file ([id number]) Assessment & Plan Assessment & Plan (1) Hypothyroidism: Comment: - Previously on levothyroxine 150 (as prescribed by clinic) but decreased to 112 at rehab. Last TSH elevated at 25 - Will obtain repeat TSH and determine changes in doses Code(s): E03.9 - Hypothyroidism, unspecified Category: Medical Qualifiers: Hypothyroidism type: other Qualified Code(s): E03.8 - Other specified hypothyroidism (2) Hypertension: Comment: - Maintain current regimen due to stable control. (Losartan & Sotalol) - Avoid overly aggressive management given patient's age and tolerance. Code(s): I10 - Essential (primary) hypertension Category: Medical Qualifiers: Hypertension type: primary hypertension Qualified Code(s): I10 - Essential (primary) hypertension (3) Recurrent UTI: Comment: - Continue methenamine hippurate - Encouraged timely urination Code(s): N39.0 - Urinary tract infection, site not specified Category: Medical (4) GERD (gastroesophageal reflux disease): Comment: - Continue Omeprazole - Endorses good symptom control Code(s): K21.9 - Gastro-esophageal reflux disease without esophagitis Category: Medical Qualifiers: Esophagitis presence: without esophagitis Qualified Code(s): K21.9 - Gastro-esophageal reflux disease without esophagitis (5) Memory loss: Comment: - Family endorsing that they've realized that patient has become more forgetful since coming back from rehab. - Advised maybe a part of medication side affects (Tylenol PM) therefore will discontinue and evaluate. Code(s): R41.3 - Other amnesia Category: Medical (6) Overactive bladder: Comment: - Discontinue Vibogran; consider bladder training techniques. - Monitor bladder diary and encourage timed voiding. - Avoid medications with high side effect profiles for the elderly. Code(s): N32.81 - Overactive bladder Category: Medical (7) Left foot drop: Comment: likeley peroneal nerve injury -resolving - Recommend continued use of walker to prevent falls. - Continue physical therapy to improve mobility. Code(s): M21.372 - Foot drop, left foot Category: Medical Plan: Health maintenance: - Discussed importance of scheduled voiding and bladder training. - Reviewed sleep hygiene and importance of stopping night-time fluids. - Flu vaccination recommended and patient advised to get it from external pharmacy. Patient was informed and verbally consented to the use of an ambient scribe for clinic note documentation during this visit. Plan I explained the risks and benefits of discontinuing diphenhydramine to address potential confusion, dizziness, and fall risks. We discussed switching to plain acetaminophen for pain and gradual reduction in dosage of Tylenol PM to prevent dependency. We also reviewed alternative bladder management strategies, discussing the importance of bladder retraining to reduce reliance on pharmacotherapy. I clarified the need for thyroid function testing considering current lab suggestions of inadequate treatment and advised monitoring the impact of ongoing medications on blood pressure in light of recent levels. We focused on foot drop improvement with therapy and addressed her anxiety relating to overactive bladder and hernias. Health maintenance advice included flu vaccination and improved nutrition using supplements. Orders: Orders TSH reflex Free T4 Today E03.8 - Other specified hypothyroidism Medications: New levothyroxine (Synthroid) 112 mcg PO DAILY 90 tabs 0RF Patient Instructions: - Stop taking Tylenol PM, replace with regular Tylenol if needed for pain. - Use timed alarms to urinate every two hours to help control bladder. - Consider taking a thyroid function test to reassess medication needs. - Monitor blood pressure at home and report any significant changes. - Use mobility aids such as a walker when moving, especially at night. - Drink cranberry juice during the day to support bladder health. - Avoid drinking fluids after 6:00 PM to reduce nighttime bathroom trips. - Keep taking Ensure drinks to maintain good nutrition. - Get a flu shot at a pharmacy or nearby health clinic.
[2025-06-12 13:47] VITALS: BP 142/72; PULSE 74; RESP 18; TEMP 36.6; O2SAT 97; BMI 25.8
== END 2025-06-12 14:33 | disposition home or self-care (01) ==
LOC: HO.HMCHD 13:32
PROVIDERS: PCP Student in an Organized Health Care Education/Training Program; Visit Provider Student in an Organized Health Care Education/Training Program
DX: E03.8 Other specified hypothyroidism (principal); I10 Essential (primary) hypertension; N39.0 Urinary tract infection, site not specified; K21.9 Gastro-esophageal reflux disease without esophagitis; R41.3 Other amnesia; N32.81 Overactive bladder; M21.372 Foot drop, left foot; Z00.00 Encounter for general adult medical examination without abnormal findings